=== PATIENT | male | born 1980 | race Caucasian/White ===

== ENCOUNTER 2018-01-11 11:42 | Emergency (ER) | payer MEDICAID, OTHER ==
[2018-01-11 11:53] VITALS: BP 132/79
--- NOTE | 2018-01-11 12:14 | ER Document Report ---
HPI - HPI Patient complains to provider of: infected insect bite Onset: Other - 3 days Pain Level: 4 Context: 37-year-old male complaining of abscess to his right medial lower leg just above the ankle. He thinks something bit him. It is been festering for 3 days. It is much worse today. He takes Suboxone 8- 3 times a day but the last time he got it filled was December 16 and he has not had any since November. He has hx of opiod abuse and is asking for dose of pain medication for the procedure only. No fever or chills. - CONSTITUTIONAL Constitutional: DENIES: Fever, Chills - EENT EENT: DENIES: Sore Throat, Ear Pain, Eye problems - NEURO Neurology: DENIES: Headache, Weakness, Vision blurred, Dizzinesss / Vertigo - CARDIOVASCULAR Cardiovascular: DENIES: Chest pain - RESPIRATORY Respiratory: DENIES: Trouble Breathing, Coughing - GASTROINTESTINAL Gastrointestinal: DENIES: Abdominal Pain, Black / Bloody Stools - URINARY Urinary: DENIES: Dysuria, Urgency, Frequency - REPRODUCTIVE Reproductive: DENIES: : - MUSCULOSKELETAL Musculoskeletal: DENIES: Extremity pain Past Medical History - Social History Smoking Status: Current Every Day Smoker Chew tobacco use (# tins/day): No Frequency of alcohol use: None Drug Abuse: None Family History: Reviewed & Not Pertinent, Hypertension Patient has suicidal ideation: No Patient has homicidal ideation: No - Past Medical History Cardiac Medical History: Reports: Hx Hypertension Pulmonary Medical History: Denies: Hx Tuberculosis Neurological Medical History: Reports: Hx Migraine Renal/ Medical History: Denies: Hx Peritoneal Dialysis Psychiatric Medical History: Reports: Hx Anxiety, Hx Bipolar Disorder, Hx Depression Past Surgical History: Reports: Hx Orthopedic Surgery - Back x 2, Sciatica, Right Leg. Denies: Hx Pacemaker - Immunizations Hx Diphtheria, Pertussis, Tetanus Vaccination: Yes Vertical Provider Document - CONSTITUTIONAL Agree With Documented VS: Yes Exam Limitations: No Limitations - INFECTION CONTROL TRAVEL OUTSIDE OF THE [place] IN LAST 30 DAYS: No - MUSCULOSKELETAL/EXTREMETIES Musculoskeletal/Extremeties: MAEW, FROM, Tender - red swollen fluctuant abscess medial left lower leg just above the ankle, Edema Notes: 3 cm lyphngitis, non tender above the ankle - NEURO Level of Consciousness: Awake - DERM Integumentary: Abscess Course - Vital Signs Vital signs: Temp Pulse Resp BP Pulse Ox 98.2 F 92 16 132/79 H 100 01/11/18 11:52 01/11/18 11:52 01/11/18 11:52 01/11/18 11:52 01/11/18 11:52 Procedures - Incision and Drainage Left Lower Leg Time completed: 14:20 Type: Simple Anesthetic type: 1% Lidocaine mL's of anesthetic: 3 Blade size: 11 I&D procedure: Sterile dressing applied, Other - surgiscrub Incision Method: Incision made by scalpel - x cut, pus drained, irrigated with 60 ml sterile saline Amount/type of drainage: large pus Discharge - Discharge Clinical Impression: I&D of right lower leg abscess, Lymphangitis Condition: Good Disposition: HOME, SELF-CARE Instructions: Abscess ([facility]), Clindamycin ([facility]), Elevation & Warmth ([facility]), Post Incision and Drainage Additional Instructions: Elevate her left leg above your heart with warm compresses all day today and tomorrow Take the clindamycin 300 mg 3 times a day that she would have already gotten from the pharmacy Tylenol up to 4000 mg a day for pain Return to the emergency room if the red area extends above the line. Prescriptions: Clindamycin HCl [Cleocin 150 mg Capsule] 300 mg PO TID #60 capsule
[2018-01-11] MEDS ORDERED: CLINDAMYCIN PHOSPHATE INJ 300 MG/2 ML SDV IV ONE (12:22)
[2018-01-11] MEDS ORDERED: ACETAMINOPHEN 325 MG TABLET PO ONE (12:23)
[2018-01-11] MEDS ORDERED: LIDOCAINE 4%/TETRACAINE 0.5%/EPI 0.18% 5 ML TOPICAL SOLN TOP ONE (12:23)
[2018-01-11] MEDS ORDERED: MORPHINE SULFATE 10 MG/ML INJ IV ONE (13:05)
== END 2018-01-11 14:56 | disposition home or self-care (01) ==
LOC: ER 11:42
PROC: 0H9LXZZ Drainage of Left Lower Leg Skin, External Approach (ICD-10-PCS; principal; 2018-01-11)
DX: L02.415 Cutaneous abscess of right lower limb (principal); I89.1 Lymphangitis
CPT/HCPCS: 87070; 87205; 87077; 87186; 10060; J3490 ×3; J2270

== ENCOUNTER 2018-04-04 22:24 | Inpatient (IN) | payer MEDICAID ==
[2018-04-05] MEDS ORDERED: AMPICILLIN SOD/SULBACTAM 3 GM VIAL IV ONE (00:03)
[2018-04-05 00:34] LABS: HEMATOCRIT 44.3 % (37.9-51.0); HEMOGLOBIN 15.1 g/dL (13.5-17.0); MEAN CORPUSCULAR HEMOGLOBIN 27.7 pg (27.0-33.4); MEAN CORPUSCULAR HGB CONC 34.2 g/dL (32.0-36.0); MEAN CORPUSCULAR VOLUME 81 fl (80-97); PLATELET COUNT 295 10^3/uL (150-450); RED BLOOD COUNT 5.48 10^6/uL (4.35-5.55); RED CELL DISTRIBUTION WIDTH 13.9 % (11.5-14.0)
[2018-04-05 00:42] LABS: ALANINE AMINOTRANSFERASE 51 U/L (21-72); ALBUMIN 4.3 g/dL (3.5-5.0); ALKALINE PHOSPHATASE 134 U/L (38-126); ANION GAP 16 (5-19); ASPARTATE AMINO TRANSFERASE 35 U/L (17-59); BILIRUBIN,DIRECT 0.3 mg/dL (0.0-0.4); BLOOD UREA NITROGEN 15 mg/dL (7-20); CALCIUM 9.8 mg/dL (8.4-10.2); CARBON DIOXIDE 27 mmol/L (22-30); CHLORIDE 98 mmol/L (98-107); GLUCOSE 148 mg/dL (75-110); POTASSIUM 3.4 mmol/L (3.6-5.0); TOTAL PROTEIN 8.2 g/dL (6.3-8.2)
[2018-04-05 00:58] LABS: ABSOLUTE LYMPHOCYTES# (MANUAL) 0.9 10^3/uL (0.5-4.7); ABSOLUTE MONOCYTES # (MANUAL) 1.8 10^3/uL (0.1-1.4); BASOPHILS % (MANUAL) 0 % (0-2); EOSINOPHILS % (MANUAL) 0 % (0-6); LYMPHOCYTES % (MANUAL) 3 % (13-45); MONOCYTES % (MANUAL) 6 % (3-13); SEGMENTED NEUTROPHILS % (MAN) 91 % (42-78); TOTAL CELLS COUNTED 100
[2018-04-05 01:02] LABS: ANISOCYTOSIS SLIGHT; PLATELET COMMENT ADEQUATE; POLYCHROMASIA SLIGHT; SCHISTOCYTES SLIGHT; TOXIC GRANULATION 1+; TOXIC VACUOLATION PRESENT
[2018-04-05 01:03] LABS: PLATELET CLUMPS PRESENT; PLATELET LARGE PRESENT; WHITE BLOOD COUNT 30.8 10^3/uL (4.0-10.5)
--- NOTE | 2018-04-05 01:20 | ER Document Report ---
ED ENT - General Chief Complaint: Facial Swelling Stated Complaint: NOSE PROBLEM Time Seen by Provider: 04/04/18 23:50 Mode of Arrival: Ambulatory Information source: Patient Notes: Patient is a 37-year-old male with no significant past medical history other than IV drug use who presents with swelling and pain of the nose and the right side of his face. Patient reports symptoms began 2 days ago when he noticed "pimple" inside his nose, he attempted to squeeze it with some relief, however yesterday he woke up and he has swelling of the nose that progressed today to the face. He denies fevers or chills, does report abdominal pain and nausea, no injury to his knowledge. He denies pain moving his eyes. TRAVEL OUTSIDE OF THE [place] IN LAST 30 DAYS: No - HPI Patient complains to provider of: Nose problem, Other - Facial swelling Onset: Yesterday Onset/Duration: Sudden Quality of pain: Sharp, Other - Throbbing Severity: Severe Pain Level: 4 Context: denies: Injury Location of pain: Face, Nose Associated symptoms: Face swelling Similar symptoms previously: No Recently seen / treated by doctor: No - Related Data Allergies/Adverse Reactions: haloperidol [From Haldol] Allergy (Severe, Verified 01/11/18 11:47) Anaphylaxis haloperidol lactate [From Haldol] Allergy (Severe, Verified 01/11/18 11:47) Anaphylaxis ketorolac tromethamine [From Toradol] Allergy (Severe, Verified 01/11/18 11:47) Past Medical History - General Information source: Patient - Social History Smoking Status: Current Every Day Smoker Chew tobacco use (# tins/day): No Frequency of alcohol use: None Drug Abuse: Other - Positive history, currently denies Lives with: Friend Family History: Reviewed & Not Pertinent, Hypertension Patient has suicidal ideation: No Patient has homicidal ideation: No - Past Medical History Cardiac Medical History: Reports: Hx Hypertension Pulmonary Medical History: Reports: None Denies: Hx Tuberculosis EENT Medical History: Reports: None Neurological Medical History: Reports: Hx Migraine Endocrine Medical History: Reports: None Renal/ Medical History: Reports: None. Denies: Hx Peritoneal Dialysis Malignancy Medical History: Reports None GI Medical History: Reports: None Musculoskeletal Medical History: Reports None Skin Medical History: Reports None Psychiatric Medical History: Reports: Hx Anxiety, Hx Bipolar Disorder, Hx Depression Traumatic Medical History: Reports: None Infectious Medical History: Reports: None Past Surgical History: Reports: Hx Orthopedic Surgery - Back x 2, Sciatica, Right Leg. Denies: Hx Pacemaker - Immunizations Hx Diphtheria, Pertussis, Tetanus Vaccination: Yes Review of Systems - Review of Systems -: Yes ROS unobtainable due to patient's medical condition Constitutional: No symptoms reported EENT: Eye pain, Eye discharge, Nose pain, Nose discharge. denies: Blurred vision, Sinus pressure, Sinus discharge, Throat pain Cardiovascular: No symptoms reported Respiratory: No symptoms reported Gastrointestinal: No symptoms reported Genitourinary: No symptoms reported Male Genitourinary: No symptoms reported Musculoskeletal: No symptoms reported Skin: No symptoms reported Hematologic/Lymphatic: No symptoms reported Neurological/Psychological: No symptoms reported -: Yes All other systems reviewed and negative Physical Exam - Vital signs Vitals: Temp Pulse Resp BP Pulse Ox 97.7 F 95 20 149/87 H 100 04/04/18 23:03 04/04/18 23:03 04/04/18 23:03 04/04/18 23:03 04/04/18 23:03 Interpretation: Normal - General General appearance: Alert, Other - Sick appearing In distress: Mild - HEENT Head: Normocephalic, Atraumatic Eyes: Other - Right periorbital erythema involving a small amount of the superior eyelid but the entire inferior eyelid across to the zygomatic arch and over to the nose, mild chemosis Conjunctiva: Normal Extraocular movements intact: Yes Eyelashes: Normal Pupils: PERRL Nasal: Other - Significant edema and erythema of the entire nose somewhat asymmetric and worse on the right, no active drainage Mouth/Lips: Normal Mucous membranes: Normal Pharynx: Normal Neck: Normal - Respiratory Respiratory status: No respiratory distress Chest status: Nontender Breath sounds: Normal Chest palpation: Normal - Cardiovascular Rhythm: Regular Heart sounds: Normal auscultation Murmur: No - Abdominal Inspection: Normal Distension: No distension Bowel sounds: Normal Tenderness: Nontender Organomegaly: No organomegaly - Back Back: Normal, Nontender - Extremities General upper extremity: Normal inspection, Nontender, Normal color, Normal ROM , Normal temperature General lower extremity: Normal inspection, Nontender, Normal color, Normal ROM , Normal temperature, Normal weight bearing. No: Jamie's sign - Neurological Neuro grossly intact: Yes Cognition: Normal Orientation: AAOx4 [place] Coma Scale Eye Opening: Spontaneous [place] Coma Scale Verbal: Oriented [place] Coma Scale Motor: Obeys Commands [place] Coma Scale Total: 15 Speech: Normal Motor strength normal: LUE, RUE, LLE, RLE Sensory: Normal - Psychological Associated symptoms: Normal affect, Normal mood - Skin Skin Temperature: Warm Skin Moisture: Dry Skin Color: Normal Course - Re-evaluation Re-evalutation: 04/05/18 01:27 Concerning for facial cellulitis as well as preorbital versus orbital cellulitis , orbital cellulitis is doubtful given no pain with movement of his extraocular muscles. Will obtain labs, CT scans of the face and orbits, start IV Unasyn, and admit to the hospital. 04/05/18 02:45 Labs showed normal lactic acid, white cell count of 30, CT scan that shows preseptal cellulitis. Patient is admitted to the hospitalist. - Vital Signs Vital signs: Temp Pulse Resp BP Pulse Ox 97.7 F 95 20 149/87 H 100 04/04/18 23:03 04/04/18 23:03 04/04/18 23:03 04/04/18 23:03 04/04/18 23:03 - Laboratory Result Diagrams: 04/05/18 00:22 04/05/18 00:22 Laboratory results interpreted by me: 04/05/18 04/05/18 00:22 00:22 WBC 30.8 H* Seg Neuts % (Manual) 91 H Lymphocytes % (Manual) 3 L Abs Neuts (Manual) 28.0 H Abs Monocytes (Manual) 1.8 H Potassium 3.4 L Glucose 148 H Alkaline Phosphatase 134 H - Diagnostic Test Radiology reviewed: Reports reviewed - Consults Dr. Quiles Time consulted: 02:46 - will admit Consulted provider: will come to ER Discharge - Discharge Clinical Impression: Facial cellulitis, Preseptal cellulitis of right eye Condition: Fair Disposition: ADMITTED INPATIENT Admitting Provider: Hospitalist Unit Admitted: Medical Floor
--- NOTE | 2018-04-05 01:43 | RADIOLOGY REPORT (SQ) ---
CT MAXILLOFACIAL WITH IV CONTRAST HISTORY: Swelling and redness noted under right eye and to entire nose. Query cellulitis. COMPARISON: None. TECHNIQUE: CT scan of the facial bones with IV contrast. This exam was performed according to our departmental dose-optimization program, which includes automated exposure control, adjustment of the mA and/or kV according to patient size and/or use of iterative reconstruction technique. FINDINGS: Mild right infraorbital and nasal soft tissue swelling. No rim-enhancing fluid collection is seen. No retrobulbar mass or hematoma is identified. Mild mucosal thickening of the right frontoethmoidal recess and the right anterior ethmoid air cells. No air-fluid levels are seen in the paranasal sinuses. The mastoid air cells are clear. No acute facial bone fracture is seen. The temporomandibular joints are intact. IMPRESSION: 1. Mild right infraorbital and nasal soft tissue swelling, which may represent preseptal cellulitis. 2. No evidence of abscess or postseptal cellulitis. 3. Mild right-sided sinus mucosal inflammatory disease.
[2018-04-05] MEDS ORDERED: TRAMADOL HCL 50 MG TABLET PO ONE (02:45)
[2018-04-05] MEDS ORDERED: ACETAMINOPHEN 325 MG TABLET PO PRN (03:26)
[2018-04-05] MEDS ORDERED: PROMETHAZINE HCL INJ 25 MG/1 ML VIAL IV PRN (03:26)
[2018-04-05] MEDS ORDERED: MAG HYDROX/AL HYDROX/SIMETH SUSP 30 ML UDCUP PO PRN (03:26)
[2018-04-05] MEDS ORDERED: AMPICILLIN SOD/SULBACTAM 3 GM VIAL IV PRN (03:51)
[2018-04-05] MEDS ORDERED: CLINDAMYCIN 900 MG/D5W RTU 900 MG/50 ML RTUPB IV ONE (04:00)
[2018-04-05] MEDS: HYDROMORPHONE HCL INJ/PF 2 MG/ML AMPULE SUBCUT PRN ×2 (04:45→10:37)
[2018-04-05] MEDS: IPRATROPIUM/ALBUTEROL 0.5-2.5 MG/3 ML AMPUL NEB PRN ×2 (04:46→16:21)
[2018-04-05] MEDS ORDERED: CLINDAMYCIN 900 MG/D5W RTU 900 MG/50 ML RTUPB IV SCH (06:00)
--- NOTE | 2018-04-05 06:53 | PDOC H&P ---
History of Present Illness Admission Date/PCP: 04/05/18 02:51 Patient complains of: Right facial pain History of Present Illness: CODY CHAVIRA is a 37 year old male with a past medical history of IV drug abuse and tobacco who presents with 2 days of right-sided facial pain following the discovery of a pustule inside of his nare on the right side. Attempts to express fluctuance on several occasions has resulted in worsening right face pain and swelling. In the emergency room he is found to have leukocytosis of 30 ,000 and a right sided maxillary sinusitis and preseptal cellulitis without abscess. He denies headache, blurred vision, nausea or vomiting or stiff neck. He receives empiric antibiotics and referred to the hospitalist for admission. Patient complains of an abrupt onset of chest pain. No shortness of breath palpitations nausea vomiting Emergency room nursing staff is concerned for excessive sedation and odd affect following visitation by several family members. Past Medical History Cardiac Medical History: Reports: Hypertension Pulmonary Medical History: Reports: None Denies: Tuberculosis EENT Medical History: Reports: None Neurological Medical History: Reports: Migraine Endocrine Medical History: Reports: None Renal/ Medical History: Reports: None Malignancy Medical History: Reports: None GI Medical History: Reports: None Musculoskeltal Medical History: Reports: None Skin Medical History: Reports: None Psychiatric Medical History: Reports: Bipolar Disorder, Depression, Substance Abuse, Tobacco Dependency Traumatic Medical History: Reports: None Infectious Medical History: Reports: None Past Surgical History Past Surgical History: Reports: Orthopedic Surgery - Back x 2, Sciatica, Right Leg Denies: Pacemaker Social History Information Source: Patient Lives with: Friend Smoking Status: Current Every Day Smoker Frequency of Alcohol Use: Social Hx Recreational Drug Use: No Drugs: Other - Denies to current provider Hx Prescription Drug Abuse: No - Advance Directive Resuscitation Status: Full Code Family History Family History: Hypertension Parental Family History Reviewed: Yes Children Family History Reviewed: Yes Sibling(s) Family History Reviewed.: Yes Medication/Allergy Home Medications: Clindamycin HCl [Cleocin 150 mg Capsule] 300 mg PO TID #60 capsule 01/11/18 Allergies/Adverse Reactions: haloperidol [From Haldol] Allergy (Severe, Verified 01/11/18 11:47) Anaphylaxis haloperidol lactate [From Haldol] Allergy (Severe, Verified 01/11/18 11:47) Anaphylaxis ketorolac tromethamine [From Toradol] Allergy (Severe, Verified 01/11/18 11:47) Review of Systems Constitutional: ABSENT: chills, fever(s), headache(s), weight gain, weight loss Eyes: ABSENT: visual disturbances Ears: ABSENT: hearing changes Cardiovascular: ABSENT: chest pain, dyspnea on exertion, edema, orthropnea, palpitations Respiratory: ABSENT: cough, hemoptysis Gastrointestinal: ABSENT: abdominal pain, constipation, diarrhea, hematemesis, hematochezia, nausea, vomiting Genitourinary: ABSENT: dysuria, hematuria Musculoskeletal: ABSENT: joint swelling Integumentary: ABSENT: rash, wounds Neurological: ABSENT: abnormal gait, abnormal speech, confusion, dizziness, focal weakness, syncope Psychiatric: ABSENT: anxiety, depression, homidical ideation, suicidal ideation Endocrine: ABSENT: cold intolerance, heat intolerance, polydipsia, polyuria Hematologic/Lymphatic: ABSENT: easy bleeding, easy bruising Physical Exam Vital Signs: Temp Pulse Resp BP Pulse Ox 98.6 F 100 26 H 134/81 H 100 04/05/18 03:00 04/05/18 03:00 04/05/18 03:00 04/05/18 03:00 04/05/18 03:00 General appearance: PRESENT: cooperative, disheveled, mild distress Head exam: PRESENT: atraumatic, normocephalic Eye exam: PRESENT: conjunctival injection - Right-sided, PERRLA Ear exam: PRESENT: normal external ear exam Mouth exam: PRESENT: moist, tongue midline Neck exam: ABSENT: carotid bruit, JVD, lymphadenopathy, thyromegaly Adult Head Front/Back Image: 1 - Edema and erythema Respiratory exam: PRESENT: clear to auscultation hilaria. ABSENT: rales, rhonchi, wheezes Cardiovascular exam: PRESENT: RRR. ABSENT: diastolic murmur, rubs, systolic murmur Pulses: PRESENT: normal dorsalis pedis pul Vascular exam: PRESENT: normal capillary refill GI/Abdominal exam: PRESENT: normal bowel sounds, soft. ABSENT: distended, guarding, mass, organolmegaly, rebound, tenderness Rectal exam: PRESENT: deferred Extremities exam: PRESENT: full ROM. ABSENT: calf tenderness, clubbing, pedal edema Neurological exam: PRESENT: alert, altered, awake, oriented to person, oriented to place, oriented to time, oriented to situation, CN II-XII grossly intact. ABSENT: motor sensory deficit Psychiatric exam: PRESENT: anxious Skin exam: PRESENT: dry, intact, warm, other - Several pustules on the right side of nose. ABSENT: cyanosis, rash Results Impressions: Facial Bones CT 04/04/18 23:59 IMPRESSION: 1. Mild right infraorbital and nasal soft tissue swelling, which may represent preseptal cellulitis. 2. No evidence of abscess or postseptal cellulitis. 3. Mild right-sided sinus mucosal inflammatory disease. Assessment & Plan - Diagnosis (1) Facial cellulitis Is this a current diagnosis for this admission?: Yes Plan: Clindamycin, Unasyn, follow-up CBC, culture and ENT consult (2) Preseptal cellulitis of right eye Is this a current diagnosis for this admission?: Yes Plan: Follow-up ENT consult, CTV head - Time Time Spent: 50 to 70 Minutes - Inpatient Certification Medical Necessity: Need Close Monitoring Due to Risk of Patient Decompensation
[2018-04-05 06:55] LABS: HEMATOCRIT 39.6 % (37.9-51.0); HEMOGLOBIN 13.6 g/dL (13.5-17.0); MEAN CORPUSCULAR HEMOGLOBIN 27.9 pg (27.0-33.4); MEAN CORPUSCULAR HGB CONC 34.3 g/dL (32.0-36.0); MEAN CORPUSCULAR VOLUME 81 fl (80-97); PLATELET COUNT 313 10^3/uL (150-450); RED BLOOD COUNT 4.87 10^6/uL (4.35-5.55); RED CELL DISTRIBUTION WIDTH 13.6 % (11.5-14.0)
[2018-04-05 06:56] LABS: ANION GAP 15 (5-19); BLOOD UREA NITROGEN 15 mg/dL (7-20); CALCIUM 9.4 mg/dL (8.4-10.2); CARBON DIOXIDE 31 mmol/L (22-30); CHLORIDE 92 mmol/L (98-107); GLUCOSE 144 mg/dL (75-110); POTASSIUM 3.8 mmol/L (3.6-5.0); SODIUM 137.9 mmol/L (137-145)
[2018-04-05 07:08] LABS: CREATINE KINASE MB 2.03 ng/mL (<4.55)
[2018-04-05 07:09] LABS: TROPONIN I < 0.012 ng/mL
[2018-04-05] MEDS: AMPICILLIN SODIUM/SULBACTAM NA 3 GM in NORMAL SALINE 100 ML IV SCH ×3 (07:13→18:45)
[2018-04-05] MEDS: HEPARIN SOD (PORCINE) 5,000 UNIT/ML 1 ML SYRINGE SUBCUT SCH ×3 (07:13→23:30)
[2018-04-05] MEDS: CHLORPHENIRAMINE MALEATE 4 MG TABLET PO SCH ×3 (07:14→22:30)
[2018-04-05 08:02] LABS: ABSOLUTE LYMPHOCYTES# (MANUAL) 1.9 10^3/uL (0.5-4.7); ABSOLUTE MONOCYTES # (MANUAL) 1.5 10^3/uL (0.1-1.4); ABSOLUTE NEUTROPHILS# (MANUAL) 34.2 10^3/uL (1.7-8.2); BAND NEUTROPHILS % (MANUAL) 2 % (3-5); BASOPHILS % (MANUAL) 0 % (0-2); EOSINOPHILS % (MANUAL) 0 % (0-6); LYMPHOCYTES % (MANUAL) 5 % (13-45); MONOCYTES % (MANUAL) 4 % (3-13); PLATELET CLUMPS PRESENT; POLYCHROMASIA SLIGHT; SEGMENTED NEUTROPHILS % (MAN) 89 % (42-78); TOTAL CELLS COUNTED 100; TOXIC GRANULATION 1+; TOXIC VACUOLATION PRESENT
[2018-04-05 08:05] LABS: WHITE BLOOD COUNT 37.6 10^3/uL (4.0-10.5)
[2018-04-05 09:07] LABS: APPEARANCE,URINE CLEAR; BILIRUBIN,URINE NEGATIVE (NEGATIVE); COLOR,URINE YELLOW; GLUCOSE, URINE 50 mg/dL (NEGATIVE); KETONES,URINE TRACE mg/dL (NEGATIVE); LEUKOCYTE ESTERASE,URINE NEGATIVE (NEGATIVE); NITRITE,URINE NEGATIVE (NEGATIVE); PROTEIN,URINE 100 mg/dL (NEGATIVE); URINE SPECIFIC GRAVITY 1.034; UROBILINOGEN,URINE NEGATIVE mg/dL (<2.0)
[2018-04-05 09:36] LABS: URINE BARBITURATES SCREEN NEGATIVE; URINE BENZODIAZEPINES SCREEN NEGATIVE; URINE COCAINE SCREEN NEGATIVE; URINE MARIJUANA (THC) SCREEN UNCONFIRMED POSITIVE; URINE METHADONE SCREEN NEGATIVE; URINE PHENCYCLIDINE SCREEN NEGATIVE
[2018-04-05] MEDS: DOCUSATE SODIUM 100 MG CAPSULE PO SCH ×2 (10:36→18:46)
[2018-04-05] MEDS: CLINDAMYCIN 900 MG/D5W RTU 900 MG/50 ML RTUPB IV SCH ×2 (10:37→20:19)
[2018-04-05] MEDS: FLUTICASONE NASAL SPRAY 50 MCG/SPRY 120 SPRAY/16 GM NASL SCH ×2 (10:37→23:30)
--- NOTE | 2018-04-05 12:02 | EKG REPORT ---
SEVERITY:- OTHERWISE NORMAL ECG - SINUS TACHYCARDIA MINIMAL ST DEPRESSION : Confirmed by: Saleem Max 05-Apr-2018 12:01:44
[2018-04-05 12:21] LABS: CREATINE KINASE MB 1.05 ng/mL (<4.55)
[2018-04-05 12:23] LABS: TROPONIN I < 0.012 ng/mL
[2018-04-05] MEDS ORDERED: KETOROLAC TROMETHAMINE INJ/PF 30 MG/1 ML SDV IV PRN (13:19)
[2018-04-05] MEDS: MORPHINE SULFATE 10 MG/ML INJ IV PRN (14:01)
[2018-04-05] MEDS: NORMAL SALINE 1000 ML 1,000 ML IV PRN (15:49)
[2018-04-05] MEDS: ARIPIPRAZOLE 5 MG TABLET PO SCH (15:50)
--- NOTE | 2018-04-05 16:58 | PDOC PROGRESS REPORT ---
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 The patient was seen on morning rounds while still in the emergency department. He was found sitting upright in bed, with even and unlabored respirations, on room air. Initially, he was found to be sleeping and was very difficult to arouse. He did not respond to name, gentle shake, or sternal rub. The patient had a friend present in the room who also was somnolent and did not respond to gentle shake of the shoulder. The patient's nurse was located and his last pain medication dose was confirmed to have been approximately 2-1/2 hours previously. The nurse and I reentered the room and again attempted to awaken the patient. He called his name loudly and told him that if he did not open his eyes and respond to me I would have to administer Narcan; at that time, both the patient and his friend roused. The patient is A&O x4. He complained of right facial pain, chest pain, and abdominal pain. He was unable to describe his chest and abdominal discomfort; express aggravating or alleviating factors, or localize his pain. He then told me that he wanted something to drink and promptly fell back to sleep. The patient's nurse reported that the patient has been intermittently waking and complaining of vague and migratory pain but appears to be resting comfortably otherwise. Reason For Visit: FACIAL CELLULITIS,POLYSUBSTANCE ABUSE Physical Exam Vital Signs: Temp Pulse Resp BP Pulse Ox 98.7 F 96 25 H 128/77 H 96 04/05/18 06:54 04/05/18 06:54 04/05/18 15:01 04/05/18 15:00 04/05/18 15:01 Intake & Output 04/04/18 04/05/18 04/06/18 06:59 06:59 06:59 Intake Total 200 Balance 200 General appearance: PRESENT: no acute distress, well-developed, well-nourished Head exam: PRESENT: normocephalic Eye exam: PRESENT: conjunctiva pink, EOMI, PERRLA. ABSENT: periorbital swelling , scleral icterus Ear exam: PRESENT: normal external ear exam Mouth exam: PRESENT: moist, neck supple, tongue midline Throat exam: ABSENT: post pharyngeal erythema, tonsillar erythema, tonsillar exudate, tonsillogmegaly Neck exam: PRESENT: full ROM. ABSENT: carotid bruit, JVD, lymphadenopathy, meningismus, tenderness, thyromegaly, tracheal deviation Respiratory exam: PRESENT: clear to auscultation hilaria, symmetrical, tachypnea, unlabored. ABSENT: rales, rhonchi, wheezes Cardiovascular exam: PRESENT: RRR, +S1, +S2. ABSENT: diastolic murmur, rubs, systolic murmur Pulses: PRESENT: normal dorsalis pedis pul Vascular exam: PRESENT: normal capillary refill GI/Abdominal exam: PRESENT: normal bowel sounds, soft. ABSENT: distended, guarding, mass, organolmegaly, rebound, tenderness Rectal exam: PRESENT: deferred Extremities exam: PRESENT: full ROM. ABSENT: calf tenderness, clubbing, pedal edema Neurological exam: PRESENT: oriented to person, oriented to place, oriented to time, oriented to situation, CN II-XII grossly intact, other - Arousable. ABSENT: motor sensory deficit Psychiatric exam: PRESENT: appropriate affect, normal mood. ABSENT: homicidal ideation, suicidal ideation Skin exam: PRESENT: dry, erythema, warm, other - Several pustules to the right side of his nose; edema and erythema to his nose and right maxillary surface. No periorbital edema or erythema.. ABSENT: cyanosis, rash Results Laboratory Results: 04/05/18 06:30 04/05/18 06:30 04/05/18 04/05/18 04/05/18 06:30 06:30 08:40 WBC 37.6 H* RBC 4.87 Hgb 13.6 Hct 39.6 MCV 81 MCH 27.9 MCHC 34.3 RDW 13.6 Plt Count 313 Seg Neutrophils % Not Reportable Lymphocytes % Not Reportable Monocytes % Not Reportable Eosinophils % Not Reportable Basophils % Not Reportable Absolute Neutrophils Not Reportable Absolute Lymphocytes Not Reportable Absolute Monocytes Not Reportable Absolute Eosinophils Not Reportable Absolute Basophils Not Reportable Sodium 137.9 Potassium 3.8 Chloride 92 L Carbon Dioxide 31 H Anion Gap 15 BUN 15 Creatinine 0.97 Est GFR ( Amer) > 60 Est GFR (Non-Af Amer) > 60 Glucose 144 H Calcium 9.4 Urine Color YELLOW Urine Appearance CLEAR Urine pH 5.0 Ur Specific [place] 1.034 Urine Protein 100 H Urine Glucose (UA) 50 H Urine Ketones TRACE H Urine Blood NEGATIVE Urine Nitrite NEGATIVE Ur Leukocyte Esterase NEGATIVE Urine WBC (Auto) 10 Urine RBC (Auto) 2 04/05/18 04/05/18 04/05/18 06:30 06:30 11:22 Creatine Kinase 95 75 CK-MB (CK-2) 2.03 Troponin I < 0.012 04/05/18 11:22 Creatine Kinase CK-MB (CK-2) 1.05 Troponin I < 0.012 Impressions: Facial Bones CT 04/04/18 23:59 IMPRESSION: 1. Mild right infraorbital and nasal soft tissue swelling, which may represent preseptal cellulitis. 2. No evidence of abscess or postseptal cellulitis. 3. Mild right-sided sinus mucosal inflammatory disease. Assessment & Plan - Diagnosis (1) Facial cellulitis Is this a current diagnosis for this admission?: Yes Plan: The patient was admitted with a complaint of 2 days of progressively worsening erythema and edema that began in his nose and has spread to his face. He denies associated fevers or chills. He does complain of abdominal discomfort and nausea. Facial bone CT demonstrated mild right infraorbital and nasal soft tissue swelling, no evidence of abscess or post septal cellulitis, and mild right- sided sinus mucosal inflammatory disease. WBCs are elevated to 37.6. Lactic acid is normal. Blood cultures are pending. The patient is admitted to the medical floor. He has been empirically started on IV clindamycin and Unasyn. Your nose and throat has been consulted; appreciate Dr. Wells's evaluation recommendations. Scheduled ibuprofen, IV morphine for breakthrough pain. (2) Leukocytosis Is this a current diagnosis for this admission?: Yes Plan: Secondary to #1. Cultures and antibiotics as above. (3) Tobacco abuse Is this a current diagnosis for this admission?: Yes Plan: Smoking cessation is encouraged. Nicotine or placement therapies are provided. (4) Bipolar 1 disorder Is this a current diagnosis for this admission?: Yes Plan: The patient's home dose Abilify and Thorazine are continued. (5) Chest pain Is this a current diagnosis for this admission?: Yes Plan: Unclear etiology; patient is noted to be tachypneic. Troponins are negative x2. EKG demonstrates Sinus tachycardia without ST segment changes. Chest x-ray is pending. Echocardiogram is pending. As the patient is a IV drug user; echocardiogram was obtained to evaluate for endocarditis. We will continue to trend troponins. (6) History of intravenous drug abuse Is this a current diagnosis for this admission?: Yes Plan: Patient endorses a history of IV drug use, previously on Suboxone; denies current use of either. Nursing has reported some suspicious activity in the room and it was difficult to arouse the patient earlier today. UDS was positive for opiates (patient had already received subcu Dilaudid by collection time) and marijuana. We will need to monitor his pain medications closely; anticipate it will be difficult to obtain adequate pain control. Consider pain management and/or mental health consultations. - Time Time Spent with patient: 15-24 minutes Medications reviewed and adjusted accordingly: Yes Anticipated discharge: Home
--- NOTE | 2018-04-05 17:53 | RADIOLOGY REPORT (SQ) ---
EXAM DESCRIPTION: CHEST SINGLE VIEW COMPLETED DATE/TIME: 04/05/2018 5:22 pm REASON FOR STUDY: dyspnea, chest pain COMPARISON: 07/07/2012 EXAM PARAMETERS: NUMBER OF VIEWS: One view. TECHNIQUE: Single frontal radiographic view of the chest acquired. RADIATION DOSE: NA LIMITATIONS: None. FINDINGS: LUNGS AND PLEURA: Elevated right hemidiaphragm. No infiltrate, effusion, or mass. MEDIASTINUM AND HILAR STRUCTURES: No masses. Contour normal. HEART AND VASCULAR STRUCTURES: Heart normal in size. Normal vasculature. BONES: No acute findings. HARDWARE: None in the chest. OTHER: No other significant finding. IMPRESSION: NO ACUTE RADIOGRAPHIC FINDING IN THE CHEST. TECHNICAL DOCUMENTATION: JOB ID: [id number] [employer]- All Rights Reserved Reading location - IP/workstation name: [email or web address]
[2018-04-05] MEDS ORDERED: IBUPROFEN 600 MG TABLET ONE (18:43)
--- NOTE | 2018-04-05 19:43 | XCELERA REPORT ---
[address] [address] Transthoracic Echocardiogram Report Name: CODY CHAVIRA Age: 37 yrs Gender: Male : 1980 Patient Status: Inpatient [address] Study Date: 04/05/2018 10:15 AM Procedure: A two-dimensional transthoracic echocardiogram with color flow and Doppler was performed. The study was technically limited with all images being suboptimal in quality. Reason For Study: systolic murmur, iv drug abuse, chest pain History: systolic murmur, iv drug abuse, chest pain. Ordering Physician: JUAN ALBERTO MEI Performed By: Chata York Interpretation Summary No valvular vegetations seen.Recommend ARTIE if clinicsl suspicion is high. There is normal left ventricular wall thickness. LV EF is > than 60% Left ventricular systolic function is normal. Doppler measurements suggest normal left ventricular diastolic function The left ventricular wall motion is normal. There is no thrombus. The right ventricle is normal in size and function. The right atrium is normal. The left atrial size is normal. There is no aortic valve stenosis There is no LVOT obstruction. No aortic regurgitation is present. There is no tricuspid stenosis. No tricuspid regurgitation. Unable to calculate RVSP due lack of TR jet. The aortic root is normal size. There is no pericardial effusion. No valvular vegetations seen.Recommend ARTIE if clinicsl suspicion is high. MMode/2D Measurements & Calculations RVDd: 2.2 cm LVIDd: 4.8 cm FS: 32.2 % Ao root diam: 2.8 cm IVSd: 0.68 cm LVIDs: 3.3 cm EDV(Teich): 107.7 ml Ao root area: 6.1 cm2 LVPWd: 0.92 cm ESV(Teich): 42.8 ml EF(Teich): 60.3 % Doppler Measurements & Calculations MV E max elyssa: MV dec slope: Ao V2 max: LV V1 max P.8 cm/sec 131.3 cm/sec 4.7 mmHg MV A max elyssa: 424.0 cm/sec2 Ao max PG: LV V1 max: 64.0 cm/sec MV dec time: 0.17 sec6.9 mmHg 107.9 cm/sec MV E/A: 1.1 PA V2 max: 126.5 cm/sec PA max P.4 mmHg Left Ventricle The left ventricle is normal in size. There is normal left ventricular wall thickness. LV EF is > than 60%. Left ventricular systolic function is normal. Doppler measurements suggest normal left ventricular diastolic function. The left ventricular wall motion is normal. There is no thrombus. Right Ventricle The right ventricle is normal in size and function. Atria The right atrium is normal. The left atrial size is normal. Aortic Valve There is no aortic valvular vegetation. There is no aortic valve stenosis. There is no LVOT obstruction. No aortic regurgitation is present. Tricuspid Valve There is no tricuspid stenosis. Unable to calculate RVSP due lack of TR jet. No tricuspid regurgitation. Pulmonic Valve There is no pulmonic valvular stenosis. There is no pulmonic valvular regurgitation. Great Vessels The aortic root is normal size. Effusions There is no pericardial effusion. : JUAN ALBERTO MEI > Minda Connelly
[2018-04-05 20:11] LABS: CREATINE KINASE MB 0.48 ng/mL (<4.55)
[2018-04-05 20:20] LABS: TROPONIN I < 0.012 ng/mL
[2018-04-06] MEDS: AMPICILLIN SODIUM/SULBACTAM NA 3 GM in NORMAL SALINE 100 ML IV SCH (00:37)
[2018-04-06] MEDS: CLINDAMYCIN 900 MG/D5W RTU 900 MG/50 ML RTUPB IV SCH ×3 (02:57→17:33)
[2018-04-06] MEDS: NORMAL SALINE 1000 ML 1,000 ML IV PRN ×2 (03:01→10:41)
[2018-04-06] MEDS: MORPHINE SULFATE 10 MG/ML INJ IV PRN (08:24)
[2018-04-06] MEDS ORDERED: CHLORPROMAZINE HCL 50 MG TABLET PO SCH (10:00)
[2018-04-06] MEDS: DOCUSATE SODIUM 100 MG CAPSULE PO SCH ×2 (10:34→17:40)
[2018-04-06] MEDS: FLUTICASONE NASAL SPRAY 50 MCG/SPRY 120 SPRAY/16 GM NASL SCH ×2 (10:34→21:16)
[2018-04-06] MEDS: NICOTINE 21 MG/24 HR PATCH.TD24 TD SCH (10:35)
[2018-04-06] MEDS: CHLORPROMAZINE HCL 50 MG TABLET PO SCH (10:42)
[2018-04-06] MEDS: ARIPIPRAZOLE 5 MG TABLET PO SCH (10:42)
[2018-04-06 10:51] LABS: PATH REVIEW PATHOLOGIST REVIEWED
[2018-04-06] MEDS ORDERED: PROMETHAZINE HCL INJ 25 MG/1 ML VIAL IV PRN (11:00)
[2018-04-06] MEDS: HEPARIN SOD (PORCINE) 5,000 UNIT/ML 1 ML SYRINGE SUBCUT SCH ×3 (13:52→21:16)
[2018-04-06] MEDS: OXYCODONE HCL IR 5 MG TABLET PO PRN ×2 (14:10→21:17)
[2018-04-06] MEDS: IBUPROFEN 600 MG TABLET PO SCH ×2 (14:11→14:13)
[2018-04-06 15:09] LABS: ABSOLUTE EOSINOPHILS # (AUTO) 0.2 10^3/uL (0.0-0.6); ABSOLUTE LYMPHOCYTES (AUTO) 1.3 10^3/uL (0.5-4.7); ABSOLUTE MONOCYTES (AUTO) 0.8 10^3/uL (0.1-1.4); ABSOLUTE NEUT (AUTO) 14.3 10^3/uL (1.7-8.2); BASOPHILS % (AUTO) 0.2 % (0-2); EOSINOPHILS % (AUTO) 0.9 % (0-6); HEMATOCRIT 32.7 % (37.9-51.0); LYMPHOCYTES % (AUTO) 7.9 % (13-45); MEAN CORPUSCULAR HEMOGLOBIN 27.2 pg (27.0-33.4); MEAN CORPUSCULAR HGB CONC 33.9 g/dL (32.0-36.0); MEAN CORPUSCULAR VOLUME 80 fl (80-97); PLATELET COUNT 253 10^3/uL (150-450); RED BLOOD COUNT 4.07 10^6/uL (4.35-5.55); RED CELL DISTRIBUTION WIDTH 13.8 % (11.5-14.0); TOTAL CELLS COUNTED % (AUTO) 100 %
[2018-04-06 15:12] LABS: HEMOGLOBIN 11.1 g/dL (13.5-17.0); WHITE BLOOD COUNT 16.6 10^3/uL (4.0-10.5)
[2018-04-06 15:18] LABS: ANION GAP 12 (5-19); BLOOD UREA NITROGEN 9 mg/dL (7-20); CALCIUM 8.2 mg/dL (8.4-10.2); CARBON DIOXIDE 30 mmol/L (22-30); CHLORIDE 97 mmol/L (98-107); GLUCOSE 157 mg/dL (75-110); SODIUM 138.6 mmol/L (137-145)
[2018-04-06 15:24] LABS: POTASSIUM 2.9 mmol/L (3.6-5.0)
--- NOTE | 2018-04-06 17:08 | PDOC PROGRESS REPORT ---
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 The patient was seen on morning rounds. He was found resting in bed comfortably on room air. He was sleeping soundly but did wake after we set his name several times. The nurse reports that he has been somnolent and difficult to arouse, but upon waking requests pain medications. He has also been refusing antibiotics, IV fluids, and lab draws due to his pain. Discussed with the patient his positive blood culture results and worrisome laboratory findings ; patient is agreeable to continuing antibiotics and necessary labs at this time. He reports continued facial pain and chest wall discomfort with deep breathing and cough. He denies fever, chills, headache, difficulty swallowing, palpitations, dyspnea , orthopnea, abdominal pain, nausea vomiting and diarrhea. He has no other questions or concerns. Reason For Visit: FACIAL CELLULITIS,POLYSUBSTANCE ABUSE Physical Exam Vital Signs: Temp Pulse Resp BP Pulse Ox 98.6 F 100 18 112/62 100 04/06/18 16:00 04/06/18 16:00 04/06/18 16:00 04/06/18 16:00 04/06/18 16:00 Intake & Output 04/05/18 04/06/18 04/07/18 06:59 06:59 06:59 Intake Total 1786 2196 Balance 1786 2196 Weight 77.7 kg General appearance: PRESENT: no acute distress, well-developed, well-nourished Head exam: PRESENT: normocephalic Eye exam: PRESENT: conjunctiva pink, EOMI, periorbital swelling - Right; no erythema, PERRLA. ABSENT: scleral icterus Ear exam: PRESENT: normal external ear exam Mouth exam: PRESENT: moist, tongue midline Throat exam: ABSENT: post pharyngeal erythema, tonsillar erythema, tonsillar exudate, tonsillogmegaly Neck exam: PRESENT: full ROM. ABSENT: carotid bruit, JVD, lymphadenopathy, tenderness, thyromegaly Respiratory exam: PRESENT: decreased breath sounds - Poor inspiratory effort, symmetrical, tachypnea, unlabored. ABSENT: rales, rhonchi, wheezes Cardiovascular exam: PRESENT: RRR, +S1, +S2. ABSENT: diastolic murmur, rubs, systolic murmur Pulses: PRESENT: normal dorsalis pedis pul Vascular exam: PRESENT: normal capillary refill GI/Abdominal exam: PRESENT: normal bowel sounds, soft. ABSENT: distended, guarding, mass, organolmegaly, rebound, tenderness Rectal exam: PRESENT: deferred Extremities exam: PRESENT: full ROM. ABSENT: calf tenderness, clubbing, pedal edema Neurological exam: PRESENT: alert, awake, oriented to person, oriented to place , oriented to time, oriented to situation, CN II-XII grossly intact. ABSENT: motor sensory deficit Psychiatric exam: PRESENT: appropriate affect, normal mood. ABSENT: homicidal ideation, suicidal ideation Skin exam: PRESENT: dry, erythema - Several pustules to the right side of his nose; edema to nose, right maxillary surface, and right orbit. Erythema has improved; now to nose only., intact, warm. ABSENT: cyanosis, rash Results Laboratory Results: 04/06/18 14:50 04/06/18 14:50 04/06/18 04/06/18 14:50 14:50 WBC 16.6 H RBC 4.07 L Hgb 11.1 L D Hct 32.7 L MCV 80 MCH 27.2 MCHC 33.9 RDW 13.8 Plt Count 253 Seg Neutrophils % 86.0 H Lymphocytes % 7.9 L Monocytes % 5.0 Eosinophils % 0.9 Basophils % 0.2 Absolute Neutrophils 14.3 H Absolute Lymphocytes 1.3 Absolute Monocytes 0.8 Absolute Eosinophils 0.2 Absolute Basophils 0.0 Sodium 138.6 Potassium 2.9 L* Chloride 97 L Carbon Dioxide 30 Anion Gap 12 BUN 9 Creatinine 0.65 Est GFR ( Amer) > 60 Est GFR (Non-Af Amer) > 60 Glucose 157 H Calcium 8.2 L 04/05/18 04/05/18 04/05/18 06:30 06:30 11:22 Creatine Kinase 95 75 CK-MB (CK-2) 2.03 Troponin I < 0.012 04/05/18 04/05/18 04/05/18 11:22 19:25 19:25 Creatine Kinase 78 CK-MB (CK-2) 1.05 0.48 Troponin I < 0.012 < 0.012 Impressions: Facial Bones CT 04/04/18 23:59 IMPRESSION: 1. Mild right infraorbital and nasal soft tissue swelling, which may represent preseptal cellulitis. 2. No evidence of abscess or postseptal cellulitis. 3. Mild right-sided sinus mucosal inflammatory disease. Chest X-Ray 04/05/18 00:00 IMPRESSION: NO ACUTE RADIOGRAPHIC FINDING IN THE CHEST. Assessment & Plan - Diagnosis (1) Facial cellulitis Is this a current diagnosis for this admission?: Yes Plan: Improved appearance; edema of the nose, right maxillary surface, right orbit. Erythema has decreased in size and intensity. Facial bone CT demonstrated mild right infraorbital and nasal soft tissue swelling, no evidence of abscess or post septal cellulitis, and mild right- sided sinus mucosal inflammatory disease. Leukocytosis is improving; 30.8--> 37.6--> 16.6. Lactic acid is normal. Blood cultures growing gram-positive cocci in clusters both sets. The patient is admitted to the medical floor. He has been empirically started on IV clindamycin and Unasyn; will adjust as cultures result ENT was consulted; spoke with Dr. Wells at this morning. He has reviewed patient's images; no interventions recommended at this time. Will see as an outpatient after discharge. Oxycodone as needed; avoid IV opiates secondary to continued sedation and concern for self-medicating (patient remains somnolent, difficult to arouse). Consider Head CT if patient continues to remain sedated, develops facial asymmetry or focal deficits. (2) Leukocytosis Is this a current diagnosis for this admission?: Yes Plan: Improved; secondary to #1. Cultures and antibiotics as above. (3) Tobacco abuse Is this a current diagnosis for this admission?: Yes Plan: Smoking cessation is encouraged. Nicotine or placement therapies are provided. (4) Bipolar 1 disorder Is this a current diagnosis for this admission?: Yes Plan: The patient's home dose Abilify and Thorazine are continued. (5) Chest pain Is this a current diagnosis for this admission?: Yes Plan: Unclear etiology; patient is noted to be tachypneic. Troponins are negative x3. EKG demonstrates Sinus tachycardia without ST segment changes. Chest x-ray is normal. Echocardiogram is benign; LVEF >60%, no diastolic dysfunction, no evidence of thrombus or vegetation. (6) History of intravenous drug abuse Is this a current diagnosis for this admission?: Yes Plan: Patient endorses a history of IV drug use, previously on Suboxone; denies current use of either. Nursing has reported some suspicious activity in the room yesterday. Patient remains intermittently sedated out of proportion to medications provided here. UDS was positive for opiates (patient had already received subcu Dilaudid by collection time) and marijuana. We will need to monitor his pain medications closely; anticipate it will be difficult to obtain adequate pain control. Consider pain management and/or mental health consultations. (7) Bacteremia Is this a current diagnosis for this admission?: Yes Plan: Both sets of cultures are growing gram-positive cocci in clusters. The patient does have a history of MSSA. He was empirically placed on IV clindamycin and Unasyn; will adjust as cultures result. Repeat blood cultures were obtained today. - Time Time Spent with patient: 15-24 minutes Medications reviewed and adjusted accordingly: Yes Anticipated discharge: Home
[2018-04-06] MEDS: CHLORPHENIRAMINE MALEATE 4 MG TABLET PO SCH ×2 (17:40→21:15)
[2018-04-06] MEDS: POTASSI CL 20 MEQ/50 ML RIDER 20 MEQ/50 ML RTUPB IV SCH (23:47)
[2018-04-07] MEDS: POTASSI CL 20 MEQ/50 ML RIDER 20 MEQ/50 ML RTUPB IV SCH ×5 (00:49→04:35)
[2018-04-07] MEDS: AMPICILLIN SODIUM/SULBACTAM NA 3 GM in NORMAL SALINE 100 ML IV SCH ×6 (01:26→18:26)
[2018-04-07] MEDS: CHLORPHENIRAMINE MALEATE 4 MG TABLET PO SCH ×4 (01:29→21:59)
[2018-04-07] MEDS: IBUPROFEN 600 MG TABLET PO SCH (01:32)
[2018-04-07] MEDS: CLINDAMYCIN 900 MG/D5W RTU 900 MG/50 ML RTUPB IV SCH ×3 (02:40→17:14)
[2018-04-07] MEDS: OXYCODONE HCL IR 5 MG TABLET PO PRN ×3 (05:04→22:00)
[2018-04-07] MEDS: HEPARIN SOD (PORCINE) 5,000 UNIT/ML 1 ML SYRINGE SUBCUT SCH ×3 (05:05→21:53)
[2018-04-07 07:39] LABS: ABSOLUTE EOSINOPHILS # (AUTO) 0.2 10^3/uL (0.0-0.6); ABSOLUTE LYMPHOCYTES (AUTO) 1.7 10^3/uL (0.5-4.7); ABSOLUTE MONOCYTES (AUTO) 1.3 10^3/uL (0.1-1.4); ABSOLUTE NEUT (AUTO) 10.6 10^3/uL (1.7-8.2); BASOPHILS % (AUTO) 0.2 % (0-2); EOSINOPHILS % (AUTO) 1.7 % (0-6); HEMATOCRIT 28.9 % (37.9-51.0); LYMPHOCYTES % (AUTO) 12.3 % (13-45); MEAN CORPUSCULAR HEMOGLOBIN 27.8 pg (27.0-33.4); MEAN CORPUSCULAR HGB CONC 34.5 g/dL (32.0-36.0); MEAN CORPUSCULAR VOLUME 81 fl (80-97); MONOCYTES % (AUTO) 9.1 % (3-13); PLATELET COUNT 249 10^3/uL (150-450); RED BLOOD COUNT 3.59 10^6/uL (4.35-5.55); RED CELL DISTRIBUTION WIDTH 13.9 % (11.5-14.0); SEGMENTED NEUTROPHILS % (AUTO) 76.7 % (42-78); TOTAL CELLS COUNTED % (AUTO) 100 %; WHITE BLOOD COUNT 13.8 10^3/uL (4.0-10.5)
[2018-04-07 07:47] LABS: ANION GAP 8 (5-19); BLOOD UREA NITROGEN 9 mg/dL (7-20); CALCIUM 7.8 mg/dL (8.4-10.2); CARBON DIOXIDE 29 mmol/L (22-30); CHLORIDE 101 mmol/L (98-107); GLUCOSE 108 mg/dL (75-110); POTASSIUM 3.5 mmol/L (3.6-5.0); SODIUM 138.2 mmol/L (137-145)
[2018-04-07] MEDS: FLUTICASONE NASAL SPRAY 50 MCG/SPRY 120 SPRAY/16 GM NASL SCH ×2 (10:55→22:00)
[2018-04-07] MEDS: NICOTINE 21 MG/24 HR PATCH.TD24 TD SCH (10:56)
[2018-04-07] MEDS: ARIPIPRAZOLE 5 MG TABLET PO SCH (11:00)
[2018-04-07] MEDS: CHLORPROMAZINE HCL 50 MG TABLET PO SCH (11:01)
[2018-04-07] MEDS: DOCUSATE SODIUM 100 MG CAPSULE PO SCH ×2 (11:01→18:26)
[2018-04-07 13:17] LABS: ARTERIAL BLOOD H2CO3 1.14 mmol/L (1.05-1.35); ARTERIAL BLOOD HCO3 28.5 mmol/L (20-24); ARTERIAL BLOOD O2 SATURATION 94.8 % (94-98); ARTERIAL BLOOD PCO2 37.9 mmHg (35-45); ARTERIAL BLOOD PH 7.49 (7.35-7.45); ARTERIAL BLOOD PO2 67.3 mmHg (80-100); ARTERIAL BLOOD TOTAL CO2 29.7 mmol/L (23-27)
[2018-04-07 13:18] LABS: ARTERIAL BLOOD FIO2 21%
--- NOTE | 2018-04-07 14:06 | RADIOLOGY REPORT (SQ) ---
EXAM DESCRIPTION: CTA CHEST COMPLETED DATE/TIME: 04/07/2018 1:31 pm REASON FOR STUDY: hypoxia, tachypnea, chest pain COMPARISON: 07/18/2013 TECHNIQUE: CT scan of the chest performed using helical scanning technique with dynamic intravenous contrast injection. Images reviewed with lung, soft tissue and bone windows. Reconstructed coronal and sagittal MPR images reviewed. Additional 3 dimensional post-processing performed to develop Maximal Intensity Projection images (DC P). All images stored on PACS. All CT scanners at this facility use dose modulation, iterative reconstruction, and/or weight based d osing when appropriate to reduce radiation dose to as low as reasonably achievable (ALARA). [facility]: Dose Right [facility]: CareDose [facility]: Dose Right [facility]: Teradose 4D [facility]: [employer] Data Integrity CONTRAST TYPE AND DOSE: contrast/concentration: Isovue 350.00 mg/ml; Total Contrast Delivered: 65.0 ml; Total Saline Delivered: 110.0 ml Contrast bolus optimized for the pulmonary arteries. Not diagnostic for the aorta. RENAL FUNCTION: BUN 9 creatinine 0.67 RADIATION DOSE: CT Rad equipment meets quality standard of care and radiation dose reduction techniq ues were employed. CTDIvol: 12.9 - 16.9 mGy. DLP: 506 mGy-cm. . LIMITATIONS: None. FINDINGS: LUNGS AND PLEURA: Bilateral subpleural/pleural nodules are present. The largest measures about 2 cm. There is a somewhat loculated right pleural effusion. There is compressive atelectasis in the right lower lobe. There is a minimal left pleural effusion with dependent atelectasis. AORTA AND GREAT VESSELS: No aneurysm. Contrast bolus not optimized for the aorta. HEART: No pericardial effusion. No significant coronary artery calcifications. PULMONARY ARTERIES: No emboli visualized in the main pulmonary arteries or the segmental branches. HILAR AND MEDIASTINAL STRUCTURES: No identified masses or abnormal nodes. HARDWARE: None in the chest. UPPER ABDOMEN: No significant findings. Limited exam. THYROID AND OTHER SOFT TISSUES: No masses. No adenopathy. BONES: No acute or significant finding. 3D MIPS: Confirm above findings. OTHER: No other significant finding. IMPRESSION: 1. There is no evidence of pulmonary emboli. 2. Bilateral pleural and subpleural nodules. Cannot entirely exclude neoplasm. Could represent inf ectious/ inflammatory etiology. 3. Loculated right pleural effusion with associated atelectasis. Minimal left pleural effusion with associated atelectasis. COMMENT: Quality ID # [id number]: Final reports with documentation of one or more dose reduction techniques (e.g., Automated exposure control, adjustment of the mA and/or kV according to patient size, use of iterative reconstruction technique) TECHNICAL DOCUMENTATION: JOB ID: [id number] [employer]- All Rights Reserved Reading location - IP/workstation name: [email or web address]
--- NOTE | 2018-04-07 14:29 | PDOC PROGRESS REPORT ---
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 The patient was seen on morning rounds. He was found resting in bed comfortably on room air. He was sleeping soundly but did wake easily. The patient's only complaint today is right chest wall discomfort with deep inspiration and cough. He denies fever, chills facial pain, palpitations, orthopnea, cough, abdominal pain, nausea vomiting and diarrhea. He denies fever, chills, headache, difficulty swallowing, palpitations, dyspnea , orthopnea, abdominal pain, nausea vomiting and diarrhea. He has no other questions or concerns. Reason For Visit: FACIAL CELLULITIS,POLYSUBSTANCE ABUSE Physical Exam Vital Signs: Temp Pulse Resp BP Pulse Ox 99.5 F 86 17 100/66 93 04/07/18 12:01 04/07/18 12:01 04/07/18 12:01 04/07/18 12:01 04/07/18 12:01 Intake & Output 04/06/18 04/07/18 04/08/18 06:59 06:59 06:59 Intake Total 1786 5121 150 Balance 1786 5121 150 Weight 77.7 kg 77.7 kg General appearance: PRESENT: no acute distress, well-developed, well-nourished, other - Fatigue Head exam: PRESENT: atraumatic, normocephalic Eye exam: PRESENT: conjunctiva pink, EOMI, PERRLA. ABSENT: scleral icterus Ear exam: PRESENT: normal external ear exam Mouth exam: PRESENT: moist, tongue midline Neck exam: ABSENT: carotid bruit, JVD, lymphadenopathy, thyromegaly Respiratory exam: PRESENT: decreased breath sounds - Bibasilar; absent right lower pablo, prolonged expiratory phas, symmetrical, tachypnea. ABSENT: rales , rhonchi, wheezes Cardiovascular exam: PRESENT: RRR, +S1, +S2. ABSENT: diastolic murmur, rubs, systolic murmur Pulses: PRESENT: normal dorsalis pedis pul Vascular exam: PRESENT: normal capillary refill GI/Abdominal exam: PRESENT: normal bowel sounds, soft. ABSENT: distended, guarding, mass, organolmegaly, rebound, tenderness Rectal exam: PRESENT: deferred Extremities exam: PRESENT: full ROM. ABSENT: calf tenderness, clubbing, pedal edema Neurological exam: PRESENT: oriented to person, oriented to place, oriented to time, oriented to situation, CN II-XII grossly intact, other - Arousable. ABSENT: motor sensory deficit Psychiatric exam: PRESENT: appropriate affect, normal mood. ABSENT: homicidal ideation, suicidal ideation Skin exam: PRESENT: dry, intact, warm, other - Pustules to right external near; continued edema to his nose and derrek-orbits though decreased significantly from yesterday. Surrounding erythema is nearly resolved.. ABSENT: cyanosis, rash Results Laboratory Results: 04/07/18 06:48 04/07/18 06:48 04/06/18 04/06/18 04/07/18 14:50 14:50 06:48 WBC 16.6 H 13.8 H RBC 4.07 L 3.59 L Hgb 11.1 L D 10.0 L Hct 32.7 L 28.9 L MCV 80 81 MCH 27.2 27.8 MCHC 33.9 34.5 RDW 13.8 13.9 Plt Count 253 249 Seg Neutrophils % 86.0 H 76.7 Lymphocytes % 7.9 L 12.3 L Monocytes % 5.0 9.1 Eosinophils % 0.9 1.7 Basophils % 0.2 0.2 Absolute Neutrophils 14.3 H 10.6 H Absolute Lymphocytes 1.3 1.7 Absolute Monocytes 0.8 1.3 Absolute Eosinophils 0.2 0.2 Absolute Basophils 0.0 0.0 Carbonic Acid HCO3/H2CO3 Ratio ABG pH ABG pCO2 ABG pO2 ABG HCO3 ABG O2 Saturation ABG Base Excess FiO2 Sodium 138.6 Potassium 2.9 L* Chloride 97 L Carbon Dioxide 30 Anion Gap 12 BUN 9 Creatinine 0.65 Est GFR ( Amer) > 60 Est GFR (Non-Af Amer) > 60 Glucose 157 H Calcium 8.2 L 04/07/18 04/07/18 06:48 12:55 WBC RBC Hgb Hct MCV MCH MCHC RDW Plt Count Seg Neutrophils % Lymphocytes % Monocytes % Eosinophils % Basophils % Absolute Neutrophils Absolute Lymphocytes Absolute Monocytes Absolute Eosinophils Absolute Basophils Carbonic Acid 1.14 HCO3/H2CO3 Ratio 25:1 ABG pH 7.49 H ABG pCO2 37.9 ABG pO2 67.3 L ABG HCO3 28.5 H ABG O2 Saturation 94.8 ABG Base Excess 5.0 FiO2 21% Sodium 138.2 Potassium 3.5 L Chloride 101 Carbon Dioxide 29 Anion Gap 8 BUN 9 Creatinine 0.67 Est GFR ( Amer) > 60 Est GFR (Non-Af Amer) > 60 Glucose 108 Calcium 7.8 L 04/05/18 04/05/18 04/05/18 06:30 06:30 11:22 Creatine Kinase 95 75 CK-MB (CK-2) 2.03 Troponin I < 0.012 04/05/18 04/05/18 04/05/18 11:22 19:25 19:25 Creatine Kinase 78 CK-MB (CK-2) 1.05 0.48 Troponin I < 0.012 < 0.012 Impressions: Facial Bones CT 04/04/18 23:59 IMPRESSION: 1. Mild right infraorbital and nasal soft tissue swelling, which may represent preseptal cellulitis. 2. No evidence of abscess or postseptal cellulitis. 3. Mild right-sided sinus mucosal inflammatory disease. Chest X-Ray 04/05/18 00:00 IMPRESSION: NO ACUTE RADIOGRAPHIC FINDING IN THE CHEST. Chest/Abdomen CTA 04/07/18 00:00 IMPRESSION: 1. There is no evidence of pulmonary emboli. 2. Bilateral pleural and subpleural nodules. Cannot entirely exclude neoplasm. Could represent infectious/ inflammatory etiology. 3. Loculated right pleural effusion with associated atelectasis. Minimal left pleural effusion with associated atelectasis. Assessment & Plan - Diagnosis (1) Facial cellulitis Is this a current diagnosis for this admission?: Yes Plan: Continued improved appearance; edema of the nose, right maxillary surface, right orbit. Erythema has decreased in size and intensity. Facial bone CT demonstrated mild right infraorbital and nasal soft tissue swelling, no evidence of abscess or post septal cellulitis, and mild right- sided sinus mucosal inflammatory disease. Leukocytosis is improving; 30.8--> 37.6--> 16.6--> 13.8 Lactic acid is normal. Blood cultures growing gram-positive cocci in clusters both sets. The patient is admitted to the medical floor. He has been empirically started on IV clindamycin and Unasyn; will adjust as cultures result ENT was consulted; spoke with Dr. Wells yesterday morning. He has reviewed patient's images; no interventions recommended at this time. Will see as an outpatient after discharge. Oxycodone as needed; avoid IV opiates secondary to continued sedation and concern for self-medicating (patient remains somnolent, difficult to arouse). Consider Head CT if patient continues to remain sedated, develops facial asymmetry or focal deficits. (2) Leukocytosis Is this a current diagnosis for this admission?: Yes Plan: Improved; secondary to #1. Cultures and antibiotics as above. (3) Tobacco abuse Is this a current diagnosis for this admission?: Yes Plan: Smoking cessation is encouraged. Nicotine or placement therapies are provided. (4) Bipolar 1 disorder Is this a current diagnosis for this admission?: Yes Plan: The patient's home dose Abilify and Thorazine are continued. (5) Chest pain Is this a current diagnosis for this admission?: Yes Plan: Secondary to bilateral loculated pleural effusions and pleural/sub pleural nodules. Unclear etiology; infectious versus malignancy. Troponins are negative x3. EKG demonstrates Sinus tachycardia without ST segment changes. Chest x-ray is normal. Echocardiogram is benign; LVEF >60%, no diastolic dysfunction, no evidence of thrombus or vegetation. (6) History of intravenous drug abuse Is this a current diagnosis for this admission?: Yes Plan: Patient endorses a history of IV drug use, previously on Suboxone; denies current use of either. Nursing has reported some suspicious activity in the room yesterday. Patient remains intermittently sedated out of proportion to medications provided here. UDS was positive for opiates (patient had already received subcu Dilaudid by collection time) and marijuana. We will need to monitor his pain medications closely; anticipate it will be difficult to obtain adequate pain control. Consider pain management and/or mental health consultations. (7) Bacteremia Is this a current diagnosis for this admission?: Yes Plan: Both sets of cultures are growing gram-positive cocci in clusters. The patient does have a history of MSSA. Repeat blood cultures are pending. He was empirically placed on IV clindamycin and Unasyn; will adjust as cultures result. (8) Bilateral pleural effusion Is this a current diagnosis for this admission?: Yes Plan: CTA of the chest was negative for pulmonary embolus; it does reveal bilateral pleural and subpleural nodules with a loculated right pleural effusion and minimal left pleural effusion with associated bibasilar atelectasis. ABG demonstrates compensated respiratory alkalosis. Cultures and antibiotics as above. Incentive spirometry to bedside. Supplemental oxygen as needed to maintain oxygen saturations greater than 91%. Pulmonology consultation. - Time Time Spent with patient: 15-24 minutes Medications reviewed and adjusted accordingly: Yes
[2018-04-07] MEDS: IBUPROFEN 800 MG TABLET PO SCH ×2 (15:28→21:59)
[2018-04-08] MEDS: AMPICILLIN SODIUM/SULBACTAM NA 3 GM in NORMAL SALINE 100 ML IV SCH ×2 (00:46→06:02)
[2018-04-08] MEDS: CLINDAMYCIN 900 MG/D5W RTU 900 MG/50 ML RTUPB IV SCH ×2 (01:46→09:07)
[2018-04-08] MEDS: HEPARIN SOD (PORCINE) 5,000 UNIT/ML 1 ML SYRINGE SUBCUT SCH ×3 (05:57→22:30)
[2018-04-08] MEDS: CHLORPHENIRAMINE MALEATE 4 MG TABLET PO SCH ×3 (06:01→22:28)
[2018-04-08] MEDS: IBUPROFEN 800 MG TABLET PO SCH ×3 (06:01→22:28)
[2018-04-08] MEDS: OXYCODONE HCL IR 5 MG TABLET PO PRN (06:02)
[2018-04-08 07:26] LABS: ABSOLUTE EOSINOPHILS # (AUTO) 0.6 10^3/uL (0.0-0.6); ABSOLUTE LYMPHOCYTES (AUTO) 0.9 10^3/uL (0.5-4.7); ABSOLUTE NEUT (AUTO) 6.2 10^3/uL (1.7-8.2); BASOPHILS % (AUTO) 0.5 % (0-2); EOSINOPHILS % (AUTO) 6.5 % (0-6); HEMATOCRIT 30.7 % (37.9-51.0); HEMOGLOBIN 10.6 g/dL (13.5-17.0); LYMPHOCYTES % (AUTO) 10.6 % (13-45); MEAN CORPUSCULAR HEMOGLOBIN 27.5 pg (27.0-33.4); MEAN CORPUSCULAR HGB CONC 34.5 g/dL (32.0-36.0); MEAN CORPUSCULAR VOLUME 80 fl (80-97); MONOCYTES % (AUTO) 11.1 % (3-13); PLATELET COUNT 282 10^3/uL (150-450); RED BLOOD COUNT 3.85 10^6/uL (4.35-5.55); RED CELL DISTRIBUTION WIDTH 13.9 % (11.5-14.0); SEGMENTED NEUTROPHILS % (AUTO) 71.3 % (42-78); TOTAL CELLS COUNTED % (AUTO) 100 %; WHITE BLOOD COUNT 8.7 10^3/uL (4.0-10.5)
[2018-04-08 07:33] LABS: ANION GAP 10 (5-19); BLOOD UREA NITROGEN 11 mg/dL (7-20); CALCIUM 8.1 mg/dL (8.4-10.2); CARBON DIOXIDE 29 mmol/L (22-30); CHLORIDE 105 mmol/L (98-107); GLUCOSE 115 mg/dL (75-110); POTASSIUM 3.5 mmol/L (3.6-5.0); SODIUM 144.1 mmol/L (137-145)
[2018-04-08] MEDS: FLUTICASONE NASAL SPRAY 50 MCG/SPRY 120 SPRAY/16 GM NASL SCH ×2 (09:06→22:32)
[2018-04-08] MEDS: CHLORPROMAZINE HCL 50 MG TABLET PO SCH (09:06)
[2018-04-08] MEDS: NICOTINE 21 MG/24 HR PATCH.TD24 TD SCH (09:07)
[2018-04-08] MEDS: DOCUSATE SODIUM 100 MG CAPSULE PO SCH ×2 (09:07→17:57)
[2018-04-08] MEDS: ARIPIPRAZOLE 5 MG TABLET PO SCH (09:07)
[2018-04-08] MEDS ORDERED: VANCOMYCIN HCL 0 MG in DEXTROSE 5%-WATER 250 ML IV NR (10:30)
--- NOTE | 2018-04-08 12:27 | PDOC PROGRESS REPORT ---
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 The patient was seen on morning rounds. He was found resting in bed comfortably on supplemental oxygen at 2lpm. He was sleeping soundly; he woke slightly when I said his name and shook his shoulder but quickly fell back to sleep. Nursing reports that he was awake and oriented x4 this morning; ate all of his breakfast, and then fell back to sleep after receiving his pain medications. He does desat slightly when sleeping to the high 80s; therefore has been placed on supplemental oxygen. Otherwise, nursing reports that he has improved comfort and pain control and no other complaints today. Patient does appear to be comfortable and is not noted to be in any acute distress. No concerns per nursing. Reason For Visit: FACIAL CELLULITIS,POLYSUBSTANCE ABUSE Physical Exam Vital Signs: Temp Pulse Resp BP Pulse Ox 97.5 F 73 16 109/66 95 04/08/18 11:47 04/08/18 11:47 04/08/18 11:47 04/08/18 11:47 04/08/18 11:47 Intake & Output 04/07/18 04/08/18 04/09/18 06:59 06:59 06:59 Intake Total 5121 1018 150 Balance 5121 1018 150 Weight 77.7 kg 78.2 kg General appearance: PRESENT: no acute distress, well-developed, well-nourished Head exam: PRESENT: atraumatic, normocephalic Eye exam: PRESENT: conjunctiva pink, EOMI, periorbital swelling - Decreased from yesterday, PERRLA. ABSENT: scleral icterus Ear exam: PRESENT: normal external ear exam Mouth exam: PRESENT: moist, tongue midline Neck exam: ABSENT: carotid bruit, JVD, lymphadenopathy, thyromegaly Respiratory exam: PRESENT: clear to auscultation hilaria, decreased breath sounds - diminised Rt lower field, symmetrical, unlabored. ABSENT: rales, rhonchi, wheezes Cardiovascular exam: PRESENT: RRR, +S1, +S2. ABSENT: diastolic murmur, rubs, systolic murmur Pulses: PRESENT: normal dorsalis pedis pul Vascular exam: PRESENT: normal capillary refill GI/Abdominal exam: PRESENT: normal bowel sounds, soft. ABSENT: distended, guarding, mass, organolmegaly, rebound, tenderness Rectal exam: PRESENT: deferred Extremities exam: PRESENT: full ROM. ABSENT: calf tenderness, clubbing, pedal edema Neurological exam: PRESENT: alert, awake, oriented to person, oriented to place , oriented to time, oriented to situation, CN II-XII grossly intact. ABSENT: motor sensory deficit Psychiatric exam: PRESENT: appropriate affect, normal mood. ABSENT: homicidal ideation, suicidal ideation Skin exam: PRESENT: dry, intact, warm, other - Pustules to right lateral nose/ external nare. Edema to his nose; erythema has resolved.. ABSENT: cyanosis, rash Results Laboratory Results: 04/08/18 07:02 04/08/18 07:02 04/07/18 04/08/18 04/08/18 12:55 07:02 07:02 WBC 8.7 RBC 3.85 L Hgb 10.6 L Hct 30.7 L MCV 80 MCH 27.5 MCHC 34.5 RDW 13.9 Plt Count 282 Seg Neutrophils % 71.3 Lymphocytes % 10.6 L Monocytes % 11.1 Eosinophils % 6.5 H Basophils % 0.5 Absolute Neutrophils 6.2 Absolute Lymphocytes 0.9 Absolute Monocytes 1.0 Absolute Eosinophils 0.6 Absolute Basophils 0.0 Carbonic Acid 1.14 HCO3/H2CO3 Ratio 25:1 ABG pH 7.49 H ABG pCO2 37.9 ABG pO2 67.3 L ABG HCO3 28.5 H ABG O2 Saturation 94.8 ABG Base Excess 5.0 FiO2 21% Sodium 144.1 Potassium 3.5 L Chloride 105 Carbon Dioxide 29 Anion Gap 10 BUN 11 Creatinine 0.57 Est GFR ( Amer) > 60 Est GFR (Non-Af Amer) > 60 Glucose 115 H Calcium 8.1 L 04/05/18 11:22 Blood Blood Culture - Final Mrsa (Meth Resis Staph Aureus) 04/05/18 04/05/18 04/05/18 06:30 06:30 11:22 Creatine Kinase 95 75 CK-MB (CK-2) 2.03 Troponin I < 0.012 04/05/18 04/05/18 04/05/18 11:22 19:25 19:25 Creatine Kinase 78 CK-MB (CK-2) 1.05 0.48 Troponin I < 0.012 < 0.012 Impressions: Facial Bones CT 04/04/18 23:59 IMPRESSION: 1. Mild right infraorbital and nasal soft tissue swelling, which may represent preseptal cellulitis. 2. No evidence of abscess or postseptal cellulitis. 3. Mild right-sided sinus mucosal inflammatory disease. Chest X-Ray 04/05/18 00:00 IMPRESSION: NO ACUTE RADIOGRAPHIC FINDING IN THE CHEST. Chest/Abdomen CTA 04/07/18 00:00 IMPRESSION: 1. There is no evidence of pulmonary emboli. 2. Bilateral pleural and subpleural nodules. Cannot entirely exclude neoplasm. Could represent infectious/ inflammatory etiology. 3. Loculated right pleural effusion with associated atelectasis. Minimal left pleural effusion with associated atelectasis. Assessment & Plan - Diagnosis (1) Facial cellulitis Is this a current diagnosis for this admission?: Yes Plan: Continued improved appearance; edema present to nose and right orbit is decreased from yesterday. Erythema has resolved. Facial bone CT demonstrated mild right infraorbital and nasal soft tissue swelling, no evidence of abscess or post septal cellulitis, and mild right- sided sinus mucosal inflammatory disease. Leukocytosis has resolved. Lactic acid is normal. Blood cultures positive for MRSA in both sets; resistant to penicillins and clindamycin. The patient is admitted to the medical floor. Based upon blood culture results; patient is transition to IV vancomycin. ENT was consulted; spoke with Dr. Wells. He has reviewed patient's images; no interventions recommended at this time. Will see as an outpatient after discharge. Oxycodone as needed; avoid IV opiates secondary to continued sedation and concern for self-medicating (patient remains somnolent, difficult to arouse). Consider Head CT if patient continues to remain sedated, develops facial asymmetry or focal deficits. (2) Leukocytosis Is this a current diagnosis for this admission?: Yes Plan: Resolved; secondary to #1. Cultures and antibiotics as above. (3) Tobacco abuse Is this a current diagnosis for this admission?: Yes Plan: Smoking cessation is encouraged. Nicotine or placement therapies are provided. (4) Bipolar 1 disorder Is this a current diagnosis for this admission?: Yes Plan: The patient's home dose Abilify and Thorazine are continued. (5) Chest pain Is this a current diagnosis for this admission?: Yes Plan: Secondary to bilateral loculated pleural effusions and pleural/sub pleural nodules. Unclear etiology; infectious versus malignancy. Troponins are negative x3. EKG demonstrates Sinus tachycardia without ST segment changes. Chest x-ray is normal. Echocardiogram is benign; LVEF >60%, no diastolic dysfunction, no evidence of thrombus or vegetation. (6) History of intravenous drug abuse Is this a current diagnosis for this admission?: Yes Plan: Patient endorses a history of IV drug use, previously on Suboxone; denies current use of either. Nursing has reported some suspicious activity in the room yesterday. Patient remains intermittently sedated out of proportion to medications provided here. UDS was positive for opiates (patient had already received subcu Dilaudid by collection time) and marijuana. We will need to monitor his pain medications closely; anticipate it will be difficult to obtain adequate pain control. Consider pain management and/or mental health consultations. (7) Bacteremia Is this a current diagnosis for this admission?: Yes Plan: Both sets of cultures grew MRSA with numerous resistances. Repeat blood cultures growing gram-positive cocci. He was empirically placed on IV clindamycin and Unasyn; received 2 days of therapy. Transition to IV vancomycin sensitivities result. Will obtain a third set of blood cultures after 24 hours of vancomycin therapy. (8) Bilateral pleural effusion Is this a current diagnosis for this admission?: Yes Plan: CTA of the chest was negative for pulmonary embolus; it does reveal bilateral pleural and subpleural nodules with a loculated right pleural effusion and minimal left pleural effusion with associated bibasilar atelectasis. ABG demonstrates compensated respiratory alkalosis. Cultures and antibiotics as above. Incentive spirometry to bedside. Supplemental oxygen as needed to maintain oxygen saturations greater than 91%. Pulmonology consultation. - Time Time Spent with patient: 15-24 minutes Medications reviewed and adjusted accordingly: Yes Anticipated discharge: Home
[2018-04-08] MEDS: VANCOMYCIN HCL 1,250 MG in DEXTROSE 5%-WATER 250 ML IV SCH ×2 (15:14→22:30)
--- NOTE | 2018-04-08 19:52 | CONSULTATION REPORT E ---
Consultation Report NAME: CODY CHAVIRA : 1980 AGE: 37Y DATE: 04/07/2018 ROOM: 415 A TO: DILMA BURKS M.D. FROM: JUAN ALBERTO MEI M.D. Requesting Physician HISTORY OF PRESENT ILLNESS: The patient is a 37-year-old male who came in with right facial swelling and facial cellulitis, admitted and he was given IV Unasyn and IV clindamycin. He came in with a white count of 30,000. The patient has been complaining of this right-sided pain over the last 2 days. He has history of IV drug abuse and smoking. Currently the patient is feeling better. He has a mild headache on and off. No nausea, vomiting, diarrhea, or pleuritic chest pain on admission. He denies any increased shortness of breath or purulent sputum production. PAST MEDICAL HISTORY: 1. Hypertension. 2. Migraine. 3. Bipolar disorder. 4. Depression. 5. Substance abuse. 6. Tobacco dependency. SURGICAL HISTORY: 1. Orthopedic surgery back x2, sciatica. 2. Right leg. SOCIAL HISTORY: The patient lives with friend. Currently he smokes everyday. He drinks alcohol socially. Has history of illicit drug use. He came in with positive initial illicit drug use. FAMILY HISTORY: Hypertension. MEDICATIONS: 1. Vancomycin. 2. Clindamycin. 3. *------* capsule, 2 capsules three times a day. ALLERGIES: 1. HALDOL. 2. TORADOL. REVIEW OF SYSTEMS: CONSTITUTIONAL: No fever, chills, or headache. EYES: Denies any visual changes. EARS: No hearing changes. CARDIOVASCULAR: Denies any exertional dyspnea or anginal heart. RESPIRATORY: Complained of pleuritic chest pain on admission and slight shortness of breath. No purulent sputum production. GENITOURINARY: No dysuria or hematuria. EXTREMITIES: No joint swelling, no cellulitis. PHYSICAL EXAMINATION: GENERAL: The patient appeared sleepy. VITAL SIGNS: Afebrile with temperature 97.1 with a T-max of 99.5. Two days ago the patient's temperature went up to 101.4. Heart rate is 86. Blood pressure is 94/51, blood pressure earlier was 111/63. Respiration is 21. Saturation is 91% on nasal cannula 2 liters. EYES: No jaundice or pallor. EARS, NOSE, AND THROAT: No ear drainage. No nasal discharge. HEAD: Some facial swelling on the right side. CHEST AND LUNGS: No wheezing, no rhonchi, no coarse crackles. CARDIOVASCULAR: S1, S2 distinct. Normal rate and regular rhythm. ABDOMEN: Flabby, positive bowel sounds, soft, nondistended, nontender. EXTREMITIES: No joint swelling, no cellulitis. LABORATORY DATA: CBC done today showed a white count of 13.8 from 37.6 the day before yesterday, hemoglobin is 10, hematocrit is 28.9, platelet count is 249. ABG done today showed pH of 7.49, pCO2 of 37.9, pO2 of 67.3, saturation 94.8. Chemistry done today showed sodium 138.2, potassium is 3.5, chloride 101, CO2 is 29, BUN is 9, creatinine is 0.7, glucose is 108, calcium is 7.8. IMAGING STUDIES: Chest CT scan done today showed loculated pleural effusion, more in the right than on the left, a small amount. Nodular opacity involving the right lower lobe and the left lower lobe and left upper lobe and the right middle lobe; was suspicious for a septic emboli. ASSESSMENT: 1. Severe sepsis, most likely due to facial cellulitis. 2. Pulmonary nodules bilateral. -Possibly infectious process. 4. Pleural effusion bilateral, loculated, more on the right than the left side. - small. PLAN/RECOMMENDATION: 1. Continue IV vancomycin and IV Unasyn. The patient seems to respond to the current IV antibiotics. 2. The pleural effusion is too small to do an ultrasound guided thoracentesis. We will continue to watch the pleural effusion. 3. Recommend a transesophageal echo to rule out infected endocarditis. 4. We will await for the blood cultures which were positive. DICTATING PHYSICIAN: DILMA BURKS MD,MATI,MPH [id number] PHY#: [id number] ID: [id number] JOB#: [id number] ACCT: [id number] cc:DILMA BURKS M.D. > [facility]
--- NOTE | 2018-04-09 05:02 | PROGRESS NOTE E ---
Progress Note NAME: CODY CHAVIRA : 1980 AGE: 37Y DATE: 04/08/2018 ROOM: 415 SUBJECTIVE: The patient is a 37-year-old white male who came in with right facial swelling and bilateral pulmonary nodules and a pleural effusion. The patient seemed to be doing well over the last 24 hours. There was no fever noted. The patient has been sleeping most of the time, or lethargic. There is no nausea, vomiting, diarrhea. OBJECTIVE: GENERAL: The patient appeared lethargic, afebrile, not in apparent respiratory distress. VITAL SIGNS: Temperature is 98.2, with a T-max of 99.5. Blood pressure is 108/63, heart rate of 74, respiratory rate of 16. Saturation is 91% on room air. EYES: Show no jaundice or pallor. Right eye appeared swollen. Both pupils are reactive. CHEST AND LUNGS: No wheezing, no rhonchi, no coarse crackles. CARDIOVASCULAR: S1, S2 distinct. Normal rate. Regular rhythm. ABDOMEN: Flabby. Positive bowel sounds. Soft, nondistended, nontender. EXTREMITIES: No joint swelling. No cellulitis. LABORATORY: CBC done today showed white count of 8.7, hemoglobin is 10.6, hematocrit 38.7, platelet count is 282. Chemistry done today showed sodium is 144, potassium is 3.5, chloride 105, CO2 is 29, BUN is 11, creatinine is 0.57, glucose 115, calcium is 8.1. I think a toxicology showed urine opiates positive and marijuana also positive. Negative for urine methadone, barbiturates, phencyclidine, amphetamines, benzodiazepines, and negative for urine chem screen. Blood cultures, which were done on admission 04/05/2018, showed positive for MRSA. The blood cultures done on 04/06/2018 positive on blood culture bottle x1 only, gram-positive cocci. ASSESSMENT: 1. BACTEREMIA, MRSA. 2. LOCULATED PLEURAL EFFUSION, SMALL, RIGHT SIDE. 3. PULMONARY OPACITIES AND NODULES BILATERAL, MORE ON THE RIGHT SIDE. - POSSIBLE INFECTIOUS ETIOLOGY. BACTEREMIC PULMONARY SEEDING COULD NOT BE COMPLETELY EXCLUDED. - POSSIBLY RELATED TO INFECTIVE ENDOCAARDITIS. 4. HISTORY OF IV DRUG USE. 5. FACIAL CELLULITIS. PLAN/RECOMMENDATIONS: 1. Recommend a transesophageal echo to determine presence of infective endocarditis. The patient may require 4-6 weeks of antibiotic therapy if the patient has infective endocarditis. We may require patient's transfer to a tertiary care center where the ARTIE can be performed. Infectious Disease service may be consulted to evaluate and follow patient adis if patient has infective endocarditis. 2. Recommend Head CT scan and possible lumbar tap if the patient remains lethargic. 3. Continue IV vancomycin. DICTATING PHYSICIAN: DILMA BURKS MD,MATI,MPH [id number] PHY#: [id number] ID: [id number] JOB#: [id number] ACCT: [id number] cc: > MTDD
[2018-04-09 05:13] LABS: HEMOGLOBIN 10.5 g/dL (13.5-17.0); MEAN CORPUSCULAR HEMOGLOBIN 27.3 pg (27.0-33.4); MEAN CORPUSCULAR HGB CONC 33.8 g/dL (32.0-36.0); MEAN CORPUSCULAR VOLUME 81 fl (80-97); PLATELET COUNT 321 10^3/uL (150-450); RED BLOOD COUNT 3.84 10^6/uL (4.35-5.55); RED CELL DISTRIBUTION WIDTH 14.2 % (11.5-14.0); WHITE BLOOD COUNT 9.3 10^3/uL (4.0-10.5)
[2018-04-09] MEDS: HEPARIN SOD (PORCINE) 5,000 UNIT/ML 1 ML SYRINGE SUBCUT SCH ×3 (05:33→22:14)
[2018-04-09] MEDS: IBUPROFEN 800 MG TABLET PO SCH ×3 (05:34→22:14)
[2018-04-09] MEDS: VANCOMYCIN HCL 1,250 MG in DEXTROSE 5%-WATER 250 ML IV SCH ×3 (05:34→23:02)
[2018-04-09 05:35] LABS: ANION GAP 10 (5-19); BLOOD UREA NITROGEN 11 mg/dL (7-20); CALCIUM 8.2 mg/dL (8.4-10.2); CARBON DIOXIDE 29 mmol/L (22-30); CHLORIDE 104 mmol/L (98-107); GLUCOSE 165 mg/dL (75-110); POTASSIUM 3.2 mmol/L (3.6-5.0); SODIUM 143.1 mmol/L (137-145)
[2018-04-09] MEDS: CHLORPHENIRAMINE MALEATE 4 MG TABLET PO SCH ×3 (05:35→22:14)
[2018-04-09] MEDS: DOCUSATE SODIUM 100 MG CAPSULE PO SCH ×2 (10:59→17:28)
[2018-04-09] MEDS: CHLORPROMAZINE HCL 50 MG TABLET PO SCH (10:59)
[2018-04-09] MEDS: NICOTINE 21 MG/24 HR PATCH.TD24 TD SCH (11:00)
[2018-04-09] MEDS: ARIPIPRAZOLE 5 MG TABLET PO SCH (11:00)
[2018-04-09] MEDS: FLUTICASONE NASAL SPRAY 50 MCG/SPRY 120 SPRAY/16 GM NASL SCH ×2 (11:00→22:14)
--- NOTE | 2018-04-09 13:08 | RADIOLOGY REPORT (SQ) ---
EXAM DESCRIPTION: CT HEAD WITHOUT COMPLETED DATE/TIME: 04/09/2018 12:51 pm REASON FOR STUDY: Decreased mental status COMPARISON: 07/18/2013 TECHNIQUE: Axial images acquired through the brain without intravenous contrast. Images reviewed wi th bone, brain and subdural windows. Additional sagittal and coronal reconstructions were generated. Images stored on PACS. All CT scanners at this facility use dose modulation, iterative reconstruction, and/or weight based d osing when appropriate to reduce radiation dose to as low as reasonably achievable (ALARA). [facility]: Dose Right [facility]: CareDose [facility]: Dose Right [facility]: Teradose 4D [facility]: Smart TeamVisibility RADIATION DOSE: CT Rad equipment meets quality standard of care and radiation dose reduction techniq ues were employed. CTDIvol: 53.2 mGy. DLP: 1150 mGy-cm. mGy. LIMITATIONS: None. FINDINGS: VENTRICLES: Normal size and contour. CEREBRUM: No masses. No hemorrhage. No midline shift. No evidence for acute infarction. Normal gra y/white matter differentiation. No areas of low density in the white matter. CEREBELLUM: No masses. No hemorrhage. No alteration of density. No evidence for acute infarction. EXTRAAXIAL SPACES: No fluid collections. No masses. ORBITS AND GLOBE: No intra- or extraconal masses. Normal contour of globe without masses. CALVARIUM: No fracture. PARANASAL SINUSES: No fluid or mucosal thickening. SOFT TISSUES: No mass or hematoma. OTHER: No other significant finding. IMPRESSION: NO ACUTE INTRACRANIAL IMAGING FINDINGS. EVIDENCE OF ACUTE STROKE: NO. COMMENT: Quality ID # [id number]: Final reports with documentation of one or more dose reduction techniques (e.g., Automated exposure control, adjustment of the mA and/or kV according to patient size, use of iterative reconstruction technique) TECHNICAL DOCUMENTATION: JOB ID: [id number] [employer]- All Rights Reserved Reading location - IP/workstation name: [email or web address]
--- NOTE | 2018-04-09 15:17 | PDOC PROGRESS REPORT ---
Subjective Progress Note for:: 04/09/18 Subjective:: The patient is a 37-year-old male with a medical history of bipolar disorder, IV drug use (denies current use), and tobacco dependence with continuous use who was admitted [facility] 04/05/18 for facial cellulitis. The patient was seen on afternoon rounds. He was found resting in bed comfortably on room air. He was sleeping soundly; but woke easily when I set his name. He complains of intermittent headaches, right-sided facial pain, chest wall pain with deep inspiration and cough, and fatigue. He denies blurred vision, focal deficits, dizziness, palpitations, dyspnea, orthopnea, abdominal pain, nausea and vomiting. We discussed concern regarding his persistent fatigue. He is relieved to know that his head CT was normal but declines LP study at this time. He was ambivalent about recommendations for a ARTIE. He denies ongoing recreational drug use. He has no new questions or concerns. No concerns per nursing. Reason For Visit: FACIAL CELLULITIS,POLYSUBSTANCE ABUSE Physical Exam Vital Signs: Temp Pulse Resp BP Pulse Ox 97.9 F 74 18 111/66 94 04/09/18 11:59 04/09/18 11:59 04/09/18 11:59 04/09/18 11:59 04/09/18 11:59 Intake & Output 04/08/18 04/09/18 04/10/18 06:59 06:59 06:59 Intake Total 1018 1552 250 Balance 1018 1552 250 Weight 78.2 kg 76.9 kg General appearance: PRESENT: no acute distress, well-developed, well-nourished - Overweight Head exam: PRESENT: atraumatic, normocephalic Eye exam: PRESENT: conjunctiva pink, EOMI, PERRLA. ABSENT: scleral icterus Ear exam: PRESENT: normal external ear exam Mouth exam: PRESENT: moist, tongue midline Neck exam: ABSENT: carotid bruit, JVD, lymphadenopathy, thyromegaly Respiratory exam: PRESENT: clear to auscultation hilaria, decreased breath sounds - bibasilar; R>L, symmetrical, unlabored. ABSENT: rales, rhonchi, wheezes Cardiovascular exam: PRESENT: RRR, +S1, +S2. ABSENT: diastolic murmur, rubs, systolic murmur Pulses: PRESENT: normal dorsalis pedis pul Vascular exam: PRESENT: normal capillary refill GI/Abdominal exam: PRESENT: normal bowel sounds, soft. ABSENT: distended, guarding, mass, organolmegaly, rebound, tenderness Rectal exam: PRESENT: deferred Extremities exam: PRESENT: full ROM. ABSENT: calf tenderness, clubbing, pedal edema Neurological exam: PRESENT: alert, awake, oriented to person, oriented to place , oriented to time, oriented to situation, CN II-XII grossly intact, other - Lethargic; wakes easily today. ABSENT: motor sensory deficit Psychiatric exam: PRESENT: appropriate affect, normal mood. ABSENT: homicidal ideation, suicidal ideation Skin exam: PRESENT: dry, warm, other - Pustules to right lateral nose/near; slight edema to nose and right periorbit. No surrounding erythema. Continued improvement. ABSENT: cyanosis, rash Results Laboratory Results: 04/09/18 04:57 04/09/18 04:57 04/09/18 04/09/18 04:57 04:57 WBC 9.3 RBC 3.84 L Hgb 10.5 L Hct 31.0 L MCV 81 MCH 27.3 MCHC 33.8 RDW 14.2 H Plt Count 321 Sodium 143.1 Potassium 3.2 L Chloride 104 Carbon Dioxide 29 Anion Gap 10 BUN 11 Creatinine 0.59 Est GFR ( Amer) > 60 Est GFR (Non-Af Amer) > 60 Glucose 165 H Calcium 8.2 L 04/06/18 14:50 Blood Blood Culture - Final Mrsa (Meth Resis Staph Aureus) 04/05/18 11:22 Blood Blood Culture - Final Mrsa (Meth Resis Staph Aureus) 04/05/18 04/05/18 04/05/18 06:30 06:30 11:22 Creatine Kinase 95 75 CK-MB (CK-2) 2.03 Troponin I < 0.012 04/05/18 04/05/18 04/05/18 11:22 19:25 19:25 Creatine Kinase 78 CK-MB (CK-2) 1.05 0.48 Troponin I < 0.012 < 0.012 Impressions: Facial Bones CT 04/04/18 23:59 IMPRESSION: 1. Mild right infraorbital and nasal soft tissue swelling, which may represent preseptal cellulitis. 2. No evidence of abscess or postseptal cellulitis. 3. Mild right-sided sinus mucosal inflammatory disease. Chest X-Ray 04/05/18 00:00 IMPRESSION: NO ACUTE RADIOGRAPHIC FINDING IN THE CHEST. Chest/Abdomen CTA 04/07/18 00:00 IMPRESSION: 1. There is no evidence of pulmonary emboli. 2. Bilateral pleural and subpleural nodules. Cannot entirely exclude neoplasm. Could represent infectious/ inflammatory etiology. 3. Loculated right pleural effusion with associated atelectasis. Minimal left pleural effusion with associated atelectasis. Head CT 04/09/18 00:00 IMPRESSION: NO ACUTE INTRACRANIAL IMAGING FINDINGS. EVIDENCE OF ACUTE STROKE: NO. Assessment & Plan - Diagnosis (1) Facial cellulitis Is this a current diagnosis for this admission?: Yes Plan: Continued improved appearance; edema present to nose and right orbit. Erythema has resolved. Facial bone CT demonstrated mild right infraorbital and nasal soft tissue swelling, no evidence of abscess or post septal cellulitis, and mild right- sided sinus mucosal inflammatory disease. Leukocytosis has resolved. Lactic acid is normal. Blood cultures positive for MRSA in both sets. Head CT was normal. The patient is admitted to the medical floor. Based upon blood culture results; patient is transition to IV vancomycin; day # 2. ENT was consulted; spoke with Dr. Wells. He has reviewed patient's images; no interventions recommended at this time. Will see as an outpatient after discharge. Oxycodone as needed; avoid IV opiates secondary to continued sedation and concern for self-medicating (patient remains somnolent, difficult to arouse). (2) Leukocytosis Is this a current diagnosis for this admission?: Yes Plan: Resolved; secondary to #1. Cultures and antibiotics as above. (3) Tobacco abuse Is this a current diagnosis for this admission?: Yes Plan: Smoking cessation is encouraged. Nicotine or placement therapies are provided. (4) Bipolar 1 disorder Is this a current diagnosis for this admission?: Yes Plan: The patient's home dose Abilify and Thorazine are continued. (5) Chest pain Is this a current diagnosis for this admission?: Yes Plan: Secondary to bilateral loculated pleural effusions and pleural/sub pleural nodules. Unclear etiology; infectious versus malignancy. Troponins are negative x3. EKG demonstrates Sinus tachycardia without ST segment changes. Chest x-ray is normal. Echocardiogram is benign; LVEF >60%, no diastolic dysfunction, no evidence of thrombus or vegetation. Will contact [facility] tomorrow to arrange for ARTIE. (6) History of intravenous drug abuse Is this a current diagnosis for this admission?: Yes Plan: Patient endorses a history of IV drug use, previously on Suboxone; denies current use of either. Nursing has reported some suspicious activity in the room yesterday. Patient remains intermittently sedated out of proportion to medications provided here. UDS was positive for opiates (patient had already received subcu Dilaudid by collection time) and marijuana. Questionable amphetamines. We will need to monitor his pain medications closely; anticipate it will be difficult to obtain adequate pain control. Consider pain management and/or mental health consultations. (7) Bacteremia Is this a current diagnosis for this admission?: Yes Plan: Blood cultures (04/05/2018) MRSA with numerous resistances. Blood cultures (04/06/2018) MRSA. Repeat blood cultures obtained again today following 24 hours of vancomycin therapy. He was empirically placed on IV clindamycin and Unasyn; received 2 days of therapy. Transitioned to IV vancomycin; Day #2. (8) Bilateral pleural effusion Is this a current diagnosis for this admission?: Yes Plan: CTA of the chest was negative for pulmonary embolus; it does reveal bilateral pleural and subpleural nodules with a loculated right pleural effusion and minimal left pleural effusion with associated bibasilar atelectasis. ABG demonstrates compensated respiratory alkalosis. Cultures and antibiotics as above. Incentive spirometry to bedside. Supplemental oxygen as needed to maintain oxygen saturations greater than 91%. Pulmonology consultation. (9) Mental status, decreased Is this a current diagnosis for this admission?: Yes Plan: The patient is difficult to arouse, but alert and oriented and following all directions when awake. Likely secondary to infectious process. Also consider withdrawal versus ongoing recreational drug use. Head CT was normal. Chemistries are improved; acidosis is resolved. Maintaining oxygen saturations on low flow O2 via nasal cannula. Providing judicious use of oxycodone; avoiding IV opiates. Avoiding benzodiazepines. Discussed recommendations for LP; patient declines at this time. He has no nuchal rigidity or focal deficits. - Time Time Spent with patient: 15-24 minutes Medications reviewed and adjusted accordingly: Yes - Inpatient Certification Based on my medical assessment, after consideration of the patient's comorbidities, presenting symptoms, or acuity I expect that the services needed warrant INPATIENT care.: Yes I certify that my determination is in accordance with my understanding of Medicare's requirements for reasonable and necessary INPATIENT services [42 CFR 412.3e].: Yes Medical Necessity: Need for IV Antibiotics
[2018-04-09] MEDS ORDERED: POTASSIUM CHLORIDE 10 MEQ CAPSULE.ER PO ONE (15:30)
[2018-04-10] MEDS: HEPARIN SOD (PORCINE) 5,000 UNIT/ML 1 ML SYRINGE SUBCUT SCH (05:33)
[2018-04-10] MEDS: IBUPROFEN 800 MG TABLET PO SCH (05:33)
[2018-04-10] MEDS: VANCOMYCIN HCL 1,250 MG in DEXTROSE 5%-WATER 250 ML IV SCH (05:33)
[2018-04-10] MEDS: CHLORPHENIRAMINE MALEATE 4 MG TABLET PO SCH (05:34)
[2018-04-10 07:01] LABS: HEMOGLOBIN 10.6 g/dL (13.5-17.0); MEAN CORPUSCULAR HEMOGLOBIN 26.8 pg (27.0-33.4); MEAN CORPUSCULAR HGB CONC 33.2 g/dL (32.0-36.0); MEAN CORPUSCULAR VOLUME 81 fl (80-97); PLATELET COUNT 397 10^3/uL (150-450); RED BLOOD COUNT 3.97 10^6/uL (4.35-5.55); RED CELL DISTRIBUTION WIDTH 13.8 % (11.5-14.0); WHITE BLOOD COUNT 11.1 10^3/uL (4.0-10.5)
[2018-04-10] MEDS ORDERED: OXYCODONE HCL IR 5 MG TABLET PO PRN (08:10)
[2018-04-10 08:20] VITALS: BP 120/71
--- NOTE | 2018-04-10 08:27 | PROGRESS NOTE E ---
Progress Note NAME: CODY CHAVIRA : 1980 AGE: 37Y DATE: 04/09/2018 ROOM: 415 SUBJECTIVE: The patient is a 37-year-old white male who came in with pleural effusion, pulmonary nodules bilaterally. Today, patient appeared to be feeling well, claimed that he has headache but seems to be better. Denies any worsening headache or vomiting or diarrhea or chest pain. Denies any increased sputum production or hemoptysis. OBJECTIVE: GENERAL: The patient awake, alert, oriented x3; afebrile. VITAL SIGNS: Temperature is 97.9, with a T-max of 98.6. Blood pressure is 111/66, heart rate of 74, respiratory rate of 18. Saturation is 94% on room air. EYES: Show no jaundice or pallor. EAR, NOSE, AND THROAT: No ear drainage. No nasal discharge. CHEST AND LUNGS: No wheezing, no rhonchi, no coarse crackles. CARDIOVASCULAR: S1, S2 distinct. Normal rate. Regular rhythm. ABDOMEN: Flabby. Positive bowel sounds. Soft, nondistended, nontender. EXTREMITIES: No joint swelling. No cellulitis. LABORATORY: CBC done today showed white count of 9.3, hemoglobin is 10.5, hematocrit 31, platelet count is 221. Chemistry done today showed sodium is 143, potassium is 3.2, chloride 104, bicarb is 29, BUN is 11, creatinine is 0.59, glucose 165, calcium is 8.2. ASSESSMENT: 1. BACTEREMIA, MRSA. CURRENTLY ON IV VANCOMYCIN. 2. LOCULATED PLEURAL EFFUSION, - SMALL, RIGHT SIDE. WE WILL CONTINUE TO WATCH HIS PLEURAL EFFUSION. ON ULTRASOUND RIGHT NOW IS TOO SMALL FOR THORACENTESIS. HIGH RISK FOR PNEUMOTHORAX. - MAY IMPROVE WITH IV AND ORAL ANTIBIOTICS LATER. 3. PULMONARY OPACITIES RIGHT LUNG AND PULMONARY NODULES BILATERAL. POSSIBLE INFECTIOUS ETIOLOGY. POSSIBLY RELATED TO INFECTIVE ENDOCARDITIS. 4. HISTORY OF IV DRUG ABUSE AND MULTIDRUG USE. 5. FACIAL CELLULITIS. PLAN/RECOMMENDATIONS: 1. Recommend a transesophageal echo to determine presence of infective endocarditis. Patient may need to be transferred to a tertiary care facility where ARTIE is done. 2. Continue IV vancomycin. 3. Recommend counseling for drug rehabilitation. 4. Will sign off today. If you have any questions please feel free to call me. DICTATING PHYSICIAN: DILMA BURKS MD,MATI,MPH [id number] PHY#: [id number] ID: [id number] JOB#: [id number] ACCT: [id number] cc: > SHERRYD
[2018-04-10 09:07] LABS: ANION GAP 13 (5-19); BLOOD UREA NITROGEN 8 mg/dL (7-20); CALCIUM 8.7 mg/dL (8.4-10.2); CARBON DIOXIDE 28 mmol/L (22-30); CHLORIDE 103 mmol/L (98-107); GLUCOSE 123 mg/dL (75-110); POTASSIUM 3.6 mmol/L (3.6-5.0); SODIUM 143.9 mmol/L (137-145)
[2018-04-10] MEDS ORDERED: OXYCODONE-ACETAMINOPHEN 5-325 MG TABLET PO PRN ×2 (10:46)
[2018-04-10] MEDS ORDERED: FENTANYL CITRATE INJ/PF 100 MCG/2 ML AMPUL IV PRN (10:47)
[2018-04-10] MEDS: DOCUSATE SODIUM 100 MG CAPSULE PO SCH (10:55)
[2018-04-10] MEDS ORDERED: VANCOMYCIN HCL 1,500 MG in DEXTROSE 5%-WATER 250 ML IV SCH (14:00)
--- NOTE | 2018-04-10 15:22 | PDOC DISCHARGE SUMMARY ---
General - Admit/Disc Date/PCP Admission Date/Primary Care Provider: 04/05/18 02:51 Discharge Date: 04/10/18 - Discharge Diagnosis (1) Facial cellulitis Is this a current diagnosis for this admission?: Yes Summary: Improved. Facial bone CT demonstrated mild right infraorbital and nasal soft tissue swelling, no evidence of abscess or post septal cellulitis, and mild right- sided sinus mucosal inflammatory disease. Leukocytosis has resolved. Lactic acid is normal. Blood cultures positive for MRSA in both sets. Head CT was normal. The patient was admitted to the medical floor and initially placed on IV Zosyn and clindamycin (2 days of therapy). Upon culture results confirming MRSA; the patient was transitioned to IV vancomycin (2 days of therapy). ENT was consulted; requested the patient be provided outpatient follow-up at time of discharge. Due to excessive sedation, IV opiates were minimized. Pain control was achieved with as needed oxycodone. Today however, the patient became acutely agitated at lack of IV medication availability. The patient's nurse attempted to educate the patient on his pain medication regiment (Percocet 5 5/325 1-2 tabs every 6 hours as needed with IV fentanyl 25 mcg twice daily for breakthrough pain); he reportedly became irate and subsequently left AGAINST MEDICAL ADVICE. (2) Leukocytosis Is this a current diagnosis for this admission?: Yes Summary: Resolved. Secondary to facial cellulitis and bacteremia. (3) Tobacco abuse Is this a current diagnosis for this admission?: Yes Summary: Smoking cessation was encouraged; nicotine or placement therapies were provided. (4) Bipolar 1 disorder Is this a current diagnosis for this admission?: Yes Summary: The patient's home dose Abilify and Thorazine were continued. (5) Chest pain Is this a current diagnosis for this admission?: Yes Summary: Secondary to bilateral loculated pleural effusions and pleural/sub pleural nodules. Unclear etiology; infectious versus malignancy. Troponins are negative x3. EKG demonstrates Sinus tachycardia without ST segment changes. Chest x-ray is normal. Echocardiogram is benign; LVEF >60%, no diastolic dysfunction, no evidence of thrombus or vegetation. Arrangements were made for the patient to be transported to [facility] tomorrow for a ARTIE and then return to our facility for continued IV antibiotic therapy for 2-6 weeks dependent upon culture and ARTIE results. The patient was agreeable to the plan of care this morning. However, early this afternoon, he left AGAINST MEDICAL ADVICE. (6) History of intravenous drug abuse Is this a current diagnosis for this admission?: Yes Summary: Patient endorses a history of IV drug use, previously on Suboxone; denies current use of either. Nursing has reported some suspicious activity in the room yesterday. Patient remains intermittently sedated out of proportion to medications provided here. UDS was positive for opiates (patient had already received subcu Dilaudid by collection time) and marijuana. Questionable amphetamines. Due to excessive somnolence; IV opiates were minimized. Upon waking today, the patient became irate at learning that his IV fentanyl was available twice daily for breakthrough pain only and subsequently left AGAINST MEDICAL ADVICE prior to my opportunity to meet with him to further discuss his pain medication regiment. (7) Bacteremia Is this a current diagnosis for this admission?: Yes Summary: Blood cultures (04/05/2018); both sets grew MRSA with numerous resistances. Blood cultures (04/06/2018); one set grew MRSA. Repeat blood cultures obtained 04/10/18 is pending. He was empirically placed on IV clindamycin and Unasyn; received 2 days of therapy. Transitioned to IV vancomycin following MRSA results; he received 2 days of therapy. Unfortunately, he has left AGAINST MEDICAL ADVICE prior to full evaluation for possible endocarditis and completing antibiotic course of therapy for MRSA bacteremia. (8) Bilateral pleural effusion Is this a current diagnosis for this admission?: Yes Summary: CTA of the chest was negative for pulmonary embolus; it does reveal bilateral pleural and subpleural nodules with a loculated right pleural effusion and minimal left pleural effusion with associated bibasilar atelectasis. ABG demonstrates compensated respiratory alkalosis. Cultures and antibiotics as above. The patient was provided supplemental oxygen as needed to maintain saturations greater than 91%. Pulmonology consultation was obtained; recommended ARTIE. [facility] was contacted; arrangements were made for the patient to be transported there tomorrow morning for ARTIE. The patient was made aware of the recommendations and was initially agreeable to this plan of care, however, left AMA shortly later. (9) Mental status, decreased Is this a current diagnosis for this admission?: Yes Summary: Throughout the admission, the patient remained difficult to arouse, but alert and oriented and following all directions when awake. Likely secondary to infectious process. Also consider withdrawal versus ongoing recreational drug use. Head CT was normal. Chemistries are improved; acidosis has resolved. Maintaining oxygen saturations on room air. UDS revealed opiates, THS, and unconfirmed amphetamines. He was provided p.o. oxycodone with adequate control of his pain; he actually has not had a dose in the last 24 hours. Today, the patient was awake, alert, and agitated upon my arrival to his room. He reported that his pain has been poorly controlled and requests IV pain medications. Discussed continued p.o. oxycodone 1-2 tabs as needed with IV fentanyl for breakthrough pain only. The patient was agreeable to the plan of care. However, approximately 45 minutes later I received a phone call from nursing staff reporting that the patient was irate regarding the lack of availability of IV medications and was leaving AGAINST MEDICAL ADVICE. - Additional Information Resuscitation Status: Full Code Home Medications: Aripiprazole [Abilify 10 mg Tablet] 10 mg PO DAILY 04/05/18 Buprenorphine HCl/Naloxone HCl [Suboxone 8 mg-2 mg Sl Film] 1 film SL TID Chlorpromazine HCl [Thorazine 50 mg Tablet] 100 mg PO DAILY 04/05/18 History of Present Illness History of Present Illness: Per H&P by Dr. Quiles: CODY CHAVIRA is a 37 year old male with a past medical history of IV drug abuse and tobacco who presents with 2 days of right-sided facial pain following the discovery of a pustule inside of his nare on the right side. Attempts to express fluctuance on several occasions has resulted in worsening right face pain and swelling. In the emergency room he is found to have leukocytosis of 30,000 and a right sided maxillary sinusitis and preseptal cellulitis without abscess. He denies headache, blurred vision, nausea or vomiting or stiff neck. He receives empiric antibiotics and referred to the hospitalist for admission. Patient complains of an abrupt onset of chest pain. No shortness of breath palpitations nausea vomiting Emergency room nursing staff is concerned for excessive sedation and odd affect following visitation by several family members. Physical Exam Vital Signs: Temp Pulse Resp BP Pulse Ox 98.0 F 68 20 120/71 98 04/10/18 08:07 04/10/18 08:07 04/10/18 08:07 04/10/18 08:07 04/10/18 08:07 Intake & Output 04/09/18 04/10/18 04/11/18 06:59 06:59 06:59 Intake Total 1552 2386 250 Balance 1552 2386 250 Weight 76.9 kg 77.9 kg General appearance: PRESENT: no acute distress, well-developed, well-nourished. ABSENT: cooperative Head exam: PRESENT: atraumatic, normocephalic Eye exam: PRESENT: conjunctiva pink, EOMI, PERRLA. ABSENT: scleral icterus Ear exam: PRESENT: normal external ear exam Mouth exam: PRESENT: moist, tongue midline Neck exam: ABSENT: carotid bruit, JVD, lymphadenopathy, thyromegaly Respiratory exam: PRESENT: clear to auscultation hilaria, decreased breath sounds - Bibasilar, symmetrical, unlabored. ABSENT: rales, rhonchi, wheezes Cardiovascular exam: PRESENT: RRR, +S1, +S2. ABSENT: diastolic murmur, rubs, systolic murmur Pulses: PRESENT: normal dorsalis pedis pul Vascular exam: PRESENT: normal capillary refill GI/Abdominal exam: PRESENT: normal bowel sounds, soft. ABSENT: distended, guarding, mass, organolmegaly, rebound, tenderness Rectal exam: PRESENT: deferred Extremities exam: PRESENT: full ROM. ABSENT: calf tenderness, clubbing, pedal edema Neurological exam: PRESENT: alert, awake, oriented to person, oriented to place , oriented to time, oriented to situation, CN II-XII grossly intact. ABSENT: motor sensory deficit Psychiatric exam: PRESENT: agitated, appropriate affect, normal mood. ABSENT: homicidal ideation, suicidal ideation Skin exam: PRESENT: dry, warm, other - Slight edema to his nose; healing crusts to the right exterior lateral nare. Edema to his right maxillary face and right periorbital is resolved. Erythema has resolved.. ABSENT: cyanosis, rash Results Laboratory Results: 04/10/18 06:46 04/10/18 08:37 04/10/18 04/10/18 06:46 08:37 WBC 11.1 H RBC 3.97 L Hgb 10.6 L Hct 32.0 L MCV 81 MCH 26.8 L MCHC 33.2 RDW 13.8 Plt Count 397 Sodium 143.9 Potassium 3.6 Chloride 103 Carbon Dioxide 28 Anion Gap 13 BUN 8 Creatinine 0.61 Est GFR ( Amer) > 60 Est GFR (Non-Af Amer) > 60 Glucose 123 H Calcium 8.7 04/05/18 04/05/18 04/05/18 06:30 06:30 11:22 Creatine Kinase 95 75 CK-MB (CK-2) 2.03 Troponin I < 0.012 04/05/18 04/05/18 04/05/18 11:22 19:25 19:25 Creatine Kinase 78 CK-MB (CK-2) 1.05 0.48 Troponin I < 0.012 < 0.012 Impressions: Facial Bones CT 04/04/18 23:59 IMPRESSION: 1. Mild right infraorbital and nasal soft tissue swelling, which may represent preseptal cellulitis. 2. No evidence of abscess or postseptal cellulitis. 3. Mild right-sided sinus mucosal inflammatory disease. Chest X-Ray 04/05/18 00:00 IMPRESSION: NO ACUTE RADIOGRAPHIC FINDING IN THE CHEST. Chest/Abdomen CTA 04/07/18 00:00 IMPRESSION: 1. There is no evidence of pulmonary emboli. 2. Bilateral pleural and subpleural nodules. Cannot entirely exclude neoplasm. Could represent infectious/ inflammatory etiology. 3. Loculated right pleural effusion with associated atelectasis. Minimal left pleural effusion with associated atelectasis. Head CT 04/09/18 00:00 IMPRESSION: NO ACUTE INTRACRANIAL IMAGING FINDINGS. EVIDENCE OF ACUTE STROKE: NO. Qualifiers - * PATIENT BEING DISCHARGED WITH ANY OF THE FOLLOWING DIAGNOSIS: No Plan Discharge Plan: Patient left AGAINST MEDICAL ADVICE.
== END 2018-04-10 13:37 | disposition left against medical advice (07) | DRG 603 ==
LOC: ER 22:24 → EH 04-05 02:51 → 4N 04-05 16:20
PROVIDERS: ADMIT Internal Medicine; ATTEND Internal Medicine
DX: L03.213 Periorbital cellulitis (principal); J90 Pleural effusion, not elsewhere classified; R78.81 Bacteremia; B95.62 Methicillin resistant Staphylococcus aureus infection as the cause of diseases classified elsewhere; J32.0 Chronic maxillary sinusitis; I10 Essential (primary) hypertension; D72.829 Elevated white blood cell count, unspecified; R91.1 Solitary pulmonary nodule; R07.9 Chest pain, unspecified; F41.8 Other specified anxiety disorders; F31.9 Bipolar disorder, unspecified; F19.90 Other psychoactive substance use, unspecified, uncomplicated; F17.210 Nicotine dependence, cigarettes, uncomplicated
CPT/HCPCS: 36415; 36600; 70450; 70487; 71045; 71275; 80048; 80053; 80202; 80307; 81001; 82550; 82553; 82803; 83036; 83605; 84484; 85025; 85027; 87040; 87077; 87186; 93005; 93010; 93306; 96365; 99285; J0295; J1170; J1644; J2270; J3370; J3480; J3490; J7030; J7060; J7620

== ENCOUNTER 2018-04-10 15:27 | Inpatient (IN) | payer MEDICAID ==
--- NOTE | 2018-04-10 15:33 | ER Document Report ---
ED General - General Stated Complaint: CHEST PAIN Time Seen by Provider: 04/10/18 15:32 Notes: This is a 37-year-old male to emergency department for evaluation of chest pain. Patient was recently hospitalized for MRSA sepsis. Patient has loculated pleural effusions likely MRSA. Had a facial cellulitis. Had multiple CT scans. [facility] to rule out bacterial endocarditis when patient became irate with the nursing staff and the providers upstairs while he was admitted. Wanted more IV pain medication. Apparently patient was excessively somnolent over several days while he was admitted so they were concerned that he had some sort of narcotic exposure likely recreational. Patient does have a history of substance abuse. Patient left AGAINST MEDICAL ADVICE and then called the ambulance here shortly after leaving and they brought him back. Patient states that he continues to have the chest pain. Vital signs are within normal limits. No other symptoms at this time. TRAVEL OUTSIDE OF THE [place] IN LAST 30 DAYS: No - HPI Onset: Just prior to arrival - Related Data Allergies/Adverse Reactions: haloperidol [From Haldol] Allergy (Severe, Verified 01/11/18 11:47) Anaphylaxis ketorolac tromethamine [From Toradol] Allergy (Severe, Verified 04/07/18 12:09) Past Medical History - General Information source: Patient - Social History Smoking Status: Current Some Day Smoker Cigarette use (# per day): Yes Frequency of alcohol use: Occasional Drug Abuse: Marijuana Lives with: Alone Family History: Hypertension - Past Medical History Cardiac Medical History: Reports: Hx Hypertension Pulmonary Medical History: Denies: Hx Tuberculosis Neurological Medical History: Reports: Hx Migraine Renal/ Medical History: Denies: Hx Peritoneal Dialysis Psychiatric Medical History: Reports: Hx Anxiety, Hx Bipolar Disorder, Hx Depression Past Surgical History: Reports: Hx Orthopedic Surgery - Back x 2, Sciatica, Right Leg. Denies: Hx Pacemaker - Immunizations Hx Diphtheria, Pertussis, Tetanus Vaccination: Yes Review of Systems - Review of Systems Notes: Constitutional: denies: Chills, Diaphoresis, Fever, Malaise, Weakness EENT: denies: Eye discharge, Blurred vision, Tearing, Double vision, Nose congestion, Nose discharge, Throat swelling, Mouth pain Cardiovascular: denies: Palpitations, Heart racing, Orthopnea, Dyspnea,. Complains of chest pain Respiratory: denies: Cough, Hurts to breathe, Wheezing,. Shortness of breath Gastrointestinal: denies: Abdominal pain, Diarrhea, Nausea, Vomiting, Black stools, bright red blood in stool Genitourinary: denies: Burning, Dysuria, Discharge, Frequency, Flank pain, Hematuria Musculoskeletal: denies: Joint pain, Joint swelling, Muscle pain, Muscle stiffness, back pain Hematologic/Lymphatic: denies: Anemia, Easy bleeding, Easy bruising, Blood clots Neurological/Psychological: denies: Confusion, Dementia, Depression, Loss of consciousness Skin: No lesions, no masses,. Complains of facial cellulitis currently under treatment for MRSA Physical Exam - Vital signs Vitals: Temp Pulse Resp BP Pulse Ox 98.3 F 87 20 142/87 H 99 04/10/18 15:36 04/10/18 15:36 04/10/18 15:36 04/10/18 15:36 04/10/18 15:36 Interpretation: Normal - General General appearance: Appears well, Alert - HEENT Head: Normocephalic, Atraumatic Eyes: Normal Pupils: PERRL - Respiratory Respiratory status: No respiratory distress Chest status: Nontender Breath sounds: Normal Chest palpation: Normal - Cardiovascular Rhythm: Regular Heart sounds: Normal auscultation Murmur: No - Abdominal Inspection: Normal Distension: No distension Bowel sounds: Normal Tenderness: Nontender Organomegaly: No organomegaly - Back Back: Normal, Nontender - Extremities General upper extremity: Normal inspection, Nontender, Normal color, Normal ROM , Normal temperature General lower extremity: Normal inspection, Nontender, Normal color, Normal ROM , Normal temperature, Normal weight bearing. No: Jamie's sign - Neurological Neuro grossly intact: Yes Cognition: Normal Orientation: AAOx4 Stanton Coma Scale Eye Opening: Spontaneous Russell Coma Scale Verbal: Oriented Russell Coma Scale Motor: Obeys Commands Russell Coma Scale Total: 15 Speech: Normal Motor strength normal: LUE, RUE, LLE, RLE Sensory: Normal - Psychological Associated symptoms: Normal affect, Normal mood - Skin Skin Temperature: Warm Skin Moisture: Dry Skin Color: Normal, Other - Mild redness around the nose appears to be improving /subacute cellulitis appearance. Course - Re-evaluation Re-evalutation: 04/10/18 15:48 We will consult with medicine with regards to what they would like for us to do at this time. 04/10/18 15:56 At this time will admit. No testing done at this time as patient has already had his daily testing. Will admit to the medical floor. - Vital Signs Vital signs: Temp Pulse Resp BP Pulse Ox 98.3 F 87 20 142/87 H 99 04/10/18 15:36 04/10/18 15:36 04/10/18 15:36 04/10/18 15:36 04/10/18 15:36 Discharge - Discharge Clinical Impression: Bacteremia due to methicillin resistant Staphylococcus aureus Condition: Good Disposition: ADMITTED INPATIENT Admitting Provider: Ulisesist - [facility] Admitted: Telemetry
[2018-04-10] MEDS ORDERED: MAG HYDROX/AL HYDROX/SIMETH SUSP 30 ML UDCUP PO PRN (16:16)
[2018-04-10] MEDS ORDERED: ACETAMINOPHEN 325 MG TABLET PO PRN (16:16)
[2018-04-10] MEDS ORDERED: IPRATROPIUM/ALBUTEROL 0.5-2.5 MG/3 ML AMPUL NEB PRN (16:16)
[2018-04-10] MEDS ORDERED: ONDANSETRON HCL INJ/PF 4 MG/2 ML SDV IV PRN (16:16)
[2018-04-10] MEDS ORDERED: OXYCODONE-ACETAMINOPHEN 5-325 MG TABLET PO PRN (16:16)
[2018-04-10] MEDS ORDERED: FENTANYL CITRATE INJ/PF 100 MCG/2 ML AMPUL IV PRN (16:22)
--- NOTE | 2018-04-10 16:55 | RADIOLOGY REPORT (SQ) ---
EXAM DESCRIPTION: CHEST SINGLE VIEW COMPLETED DATE/TIME: 04/10/2018 4:40 pm REASON FOR STUDY: dyspnea COMPARISON: AP chest 04/05/2018 CT angio chest 04/07/2018, 07/08/2013 EXAM PARAMETERS: NUMBER OF VIEWS: One view. TECHNIQUE: Single frontal radiographic view of the chest acquired. RADIATION DOSE: NA LIMITATIONS: None. FINDINGS: LUNGS AND PLEURA: Minimal airspace disease with air bronchograms in the medial right lung base marked with a [place]. Pulmonary nodules seen on CT 04/07/2018 worrisome for septic emboli are difficult to visualize on toda y's portable chest film. No gross pleural effusions or pneumothorax. MEDIASTINUM AND HILAR STRUCTURES: No masses. Contour normal. HEART AND VASCULAR STRUCTURES: Heart normal in size. Normal vasculature. BONES: Old left clavicle fracture HARDWARE: None in the chest. OTHER: No other significant finding. IMPRESSION: Minimal airspace disease in the medial right lung base, atelectasis versus pneumonia. Nodules from probable septic emboli seen in the lungs on CT 04/07/2018 are difficult to visualize by t angie's plain film. Findings discussed with Jolly Bran NP TECHNICAL DOCUMENTATION: JOB ID: [id number] [employer]- All Rights Reserved Reading location - IP/workstation name: [email or web address]
[2018-04-10] MEDS ORDERED: MORPHINE SULFATE 10 MG/ML INJ IM ONE (17:00)
--- NOTE | 2018-04-10 17:09 | Progress Note ---
Provider Note Provider Note: Addendum to the H&P: The patient was admitted on 04/05/18 for facial cellulitis; left AGAINST MEDICAL ADVICE 04/10/18 approximately 1130 this morning. The patient then re-presented to the emergency department by EMS 4 hours later with a complaint of continued dyspnea and chest wall discomfort. Please reference discharge summary dated 04/10/18. S: Patient reports continued chest wall discomfort with deep breath and cough; especially to the right side. The pain is nonradiating and not associated with diaphoresis, nausea, vomiting. He states that the discomfort is unchanged from earlier this morning and consistent with the pain he has been experiencing for the last several days. He denies IV drug use or other recreational drug use during his time away from the hospital. He does admit that he left due to agitation with the nursing staff over his pain medication regiment. This was reviewed in detail with the patient; he will be provided Percocet 1-2 tabs every 6 hours as needed with low- dose IV fentanyl twice daily as needed for breakthrough pain only. He is advised that the nurses are instructed to provide p.o. medication first for more consistent pain control. The patient states that he understands and is agreeable to the pain medication regimen as above. O: 98.3, HR 87, 142/87, RR 20, 99% on room air. Well-developed, well-nourished male, no acute distress. HEENT: Unchanged; slight edema to nose. Resolving cellulitis. Lungs: Even, unlabored breathing. Diminished right lower pablo. CVA: RRR, S1,S2. (-) R/G/M Abd: Soft, nontender Psych: A&Ox4. Tearful and apologetic. A&P: (1) Facial cellulitis Is this a current diagnosis for this admission?: Yes Plan: Resolving. Facial bone CT demonstrated mild right infraorbital and nasal soft tissue swelling, no evidence of abscess or post septal cellulitis, and mild right- sided sinus mucosal inflammatory disease. Leukocytosis has resolved. Lactic acid is normal. Blood cultures positive for MRSA in both sets. Head CT was normal. The patient is admitted to the medical floor. Based upon blood culture results; patient is transition to IV vancomycin; day # 2. Will resume. ENT was consulted previous admission; will see patient in office after d/c. spoke with Dr. Wells. (2) Leukocytosis Is this a current diagnosis for this admission?: Yes Plan: Resolved; secondary to #1. Cultures and antibiotics as above. (3) Tobacco abuse Is this a current diagnosis for this admission?: Yes Plan: Smoking cessation is encouraged. Nicotine or placement therapies are provided. (4) Bipolar 1 disorder Is this a current diagnosis for this admission?: Yes Plan: The patient's home dose Abilify and Thorazine are continued. Will consult mental health services for medication recommendations; specifically for agitation in patient who has had persistent somnolence and questionable ongoing recreational drug use while inpatient. (5) Chest pain Is this a current diagnosis for this admission?: Yes Plan: Secondary to bilateral loculated pleural effusions and pleural/sub pleural nodules. During previous admission: Troponins were negative x3, EKG demonstrates Sinus tachycardia without ST segment changes, w/ benign CXR. Echocardiogram is benign; LVEF >60%, no diastolic dysfunction, no evidence of thrombus or vegetation. Repeat CXR today demonstrated minimal airspace disease to the right medial lung base with nodules and probable septic emboli noted on previous CT (04/11/18) Resume IV vancomycin for MRSA. Incentive spirometer. Percocet 5/325 1-2 tabs every 6 hours as needed with IV fentanyl 25 mcg twice daily as needed breakthrough pain. Tylenol as needed. Scheduled Motrin. Daily Lidoderm patch. (6) History of intravenous drug abuse Is this a current diagnosis for this admission?: Yes Plan: Patient endorses a history of IV drug use, previously on Suboxone; denies current use of either. UDS (04/05/2018) was positive for opiates (patient had already received subcu Dilaudid by collection time) and marijuana. Questionable amphetamines. We will need to monitor his pain medications closely; anticipate it will be difficult to obtain adequate pain control. Consider pain management consultations. Mental health is consulted. (7) Bacteremia Is this a current diagnosis for this admission?: Yes Plan: Blood cultures (04/05/2018) MRSA with numerous resistances. Blood cultures (04/06/2018) MRSA. Repeat blood cultures obtained again today following 24 hours of vancomycin therapy. Will obtain another set today after returning from AMA status. He was empirically placed on IV clindamycin and Unasyn; received 2 days of therapy. Will resume IV vancomycin; Day #3 The patient had been placed on the schedule tomorrow at [facility] for a ARTIE ; subsequently canceled once patient left AMA. Will need to discuss with the patient the risks of endocarditis and necessity of testing and then reschedule the procedure. (8) Lung nodules Discussed with Dr. Trevino today; found on CT a of the chest (is 04/07/18). Pulmonary nodules are worrisome for septic emboli. The same study revealed bilateral pleural and subpleural nodules with loculated right pleural effusion with associated atelectasis. Cultures and antibiotics as above. Will need to obtain ARTIE; patient likely to require 6 weeks of IV antibiotic therapy.
[2018-04-10] MEDS ORDERED: VANCOMYCIN HCL 0 MG in DEXTROSE 5%-WATER 250 ML IV NR (17:15)
[2018-04-10 17:54] LABS: URINE AMPHETAMINES SCREEN NEGATIVE; URINE BARBITURATES SCREEN NEGATIVE; URINE BENZODIAZEPINES SCREEN NEGATIVE; URINE MARIJUANA (THC) SCREEN NEGATIVE; URINE METHADONE SCREEN NEGATIVE; URINE PHENCYCLIDINE SCREEN NEGATIVE
[2018-04-10 18:09] LABS: URINE COCAINE SCREEN NEGATIVE
[2018-04-10 19:12] LABS: ANION GAP 13 (5-19); BLOOD UREA NITROGEN 8 mg/dL (7-20); CARBON DIOXIDE 27 mmol/L (22-30); CHLORIDE 103 mmol/L (98-107); GLUCOSE 109 mg/dL (75-110); POTASSIUM 4.2 mmol/L (3.6-5.0); SODIUM 142.9 mmol/L (137-145)
[2018-04-10] MEDS: VANCOMYCIN HCL 1,500 MG in DEXTROSE 5%-WATER 250 ML IV SCH (19:24)
[2018-04-10] MEDS: OXYCODONE-ACETAMINOPHEN 5-325 MG TABLET PO PRN (19:29)
[2018-04-10] MEDS: IBUPROFEN 600 MG TABLET PO SCH ×2 (19:30→21:54)
[2018-04-10] MEDS: FAMOTIDINE 20 MG TABLET PO SCH (21:54)
[2018-04-10] MEDS: HEPARIN SOD (PORCINE) 5,000 UNIT/ML 1 ML SYRINGE SUBCUT SCH (21:56)
[2018-04-11] MEDS: OXYCODONE-ACETAMINOPHEN 5-325 MG TABLET PO PRN ×4 (02:23→21:15)
[2018-04-11] MEDS: VANCOMYCIN HCL 1,500 MG in DEXTROSE 5%-WATER 250 ML IV SCH ×3 (02:23→18:27)
[2018-04-11 05:34] LABS: HEMATOCRIT 32.9 % (37.9-51.0); HEMOGLOBIN 11.2 g/dL (13.5-17.0); MEAN CORPUSCULAR HEMOGLOBIN 27.5 pg (27.0-33.4); MEAN CORPUSCULAR HGB CONC 34.1 g/dL (32.0-36.0); MEAN CORPUSCULAR VOLUME 81 fl (80-97); PLATELET COUNT 444 10^3/uL (150-450); RED BLOOD COUNT 4.08 10^6/uL (4.35-5.55); RED CELL DISTRIBUTION WIDTH 13.8 % (11.5-14.0); WHITE BLOOD COUNT 11.5 10^3/uL (4.0-10.5)
[2018-04-11] MEDS: HEPARIN SOD (PORCINE) 5,000 UNIT/ML 1 ML SYRINGE SUBCUT SCH ×3 (05:40→21:17)
[2018-04-11] MEDS: IBUPROFEN 600 MG TABLET PO SCH ×3 (05:41→21:18)
[2018-04-11 06:03] LABS: ANION GAP 9 (5-19); BLOOD UREA NITROGEN 9 mg/dL (7-20); CALCIUM 8.4 mg/dL (8.4-10.2); CARBON DIOXIDE 29 mmol/L (22-30); CHLORIDE 105 mmol/L (98-107); GLUCOSE 119 mg/dL (75-110); SODIUM 142.9 mmol/L (137-145)
[2018-04-11 06:52] LABS: VANCOMYCIN,TROUGH 43.7 ug/mL (5.0-20.0)
[2018-04-11] MEDS ORDERED: FENTANYL CITRATE INJ/PF 100 MCG/2 ML AMPUL ONE (09:29)
[2018-04-11] MEDS: FAMOTIDINE 20 MG TABLET PO SCH ×2 (09:37→21:16)
[2018-04-11] MEDS: NICOTINE 14 MG/24 HR PATCH.TD24 TD SCH (09:37)
[2018-04-11] MEDS: FENTANYL CITRATE INJ/PF 100 MCG/2 ML AMPUL IV PRN ×2 (09:44→18:26)
--- NOTE | 2018-04-11 16:38 | PSYCHOLOGICAL NOTE ---
Psych Note - Psych Note Date seen by psych provider: 04/11/18 Time seen by psych provider: 14:00 - Chart review at 1400. Patient well known to the Behavioral Health team Psych Note: Reason for Consult: Bipolar, Polysubstance, Medication review/recommendation Contact Permissions: Unknown at this time Patient is a 37 year old male who was admitted to [facility] 04/05/18 for Cellulites and MRSA. He left AMA the morning of 04/10/18 and was brought back via EMS on same day at 1530. UDS was positive for Opiates (had been administered them during ED visit), Cannabis and Amphetamine type substance on 04/05/18. UDS was negative on 04/10/18 when brought back in. Psychiatric medications listed are Abilify 10MG QD and Thorazine 100MG QD and have not been started during visit. He is being administered multiple pain medications. He is going to be admitted as medical for 6 weeks due to need for IV antibiotics in order to treat MRSA and Endocarditis. Review of chart revealed patient was seen 3 times in 2013 by Behavioral Health and is well known to the Behavioral Health team. He was often manipulative in seeking pain medication and would do things like swallow batteries so he would need surgery and get pain medication. He would often endorse SI/HI in order to be hospitalized at times he was homeless in order to obtain MH services. Dr. Abe Galvan has documentation in from 06/19/13 and 06/17/17 referencing these behaviors, diagnoses and recommendations. He was typically made aware he would need to link up with outpatient MH services for ongoing treatment and follow physician directives. Diagnosis: 296.7 (F31.9) Bipolar I Disorder, Current or most recent episode unspecified by History History of Polysubstance Use and Opioid Withdrawal Medication recommendations made by the psychiatric medical provider, Dr. Iggy MD., includes: Restart Home Medications Continue Abilify 10MG daily for mood stabilization/depression Continue Thorazine 100MG daily for mood stabilization Also attending physicians are advised they will want to reduce pain medications to lowest possible given history of polysubstance use (specifically Opioid Use and Withdrawal) and the measures he would go to to get pain medications (such as swallowing batteries to get surgery and then obtain pain medication). Impression/Plan: Patient is cleared from acute psychiatric services. He should continue home psychiatric medications while in the hospital and then follow up with outpatient MH provider when discharged. Treating physicians should use pain medications minimally given substance abuse history. Consulted with Dr. Galvan regarding the management and care of patient. Attending Hospitalist made aware of recommendations and in agreement.
--- NOTE | 2018-04-11 18:07 | PDOC PROGRESS REPORT ---
Subjective Progress Note for:: 04/11/18 Subjective:: The patient is a 37-year-old male with a medical history of bipolar disorder, IV drug use (denies current use), and tobacco dependence with continuous use who was admitted [facility] 04/05/18 for facial cellulitis. The patient left AMA 04/10/18 and was subsequently readmitted 4 hours later for dyspnea and chest discomfort. Patient was seen on morning rounds. He was sleeping when I woke the room but woke easily when I set his name. He reports persistent chest discomfort with inspiration and deep breath. He denies dyspnea at present. He repeatedly asks to have his pain medication regiment increased; becoming slightly agitated when I tell him that were going to remain with Percocet every 4 hours with fentanyl for breakthrough pain available only if he is utilizing oral medications. He denies fever, chills, headache, dizziness, palpitations, orthopnea, abdominal pain, nausea and vomiting. He has no other questions or concerns. No concerns per nursing. Reason For Visit: MRSA BACTERIMA Physical Exam Vital Signs: Temp Pulse Resp BP Pulse Ox 97.8 F 83 18 123/72 100 04/11/18 16:28 04/11/18 16:28 04/11/18 16:28 04/11/18 16:28 04/11/18 16:28 Intake & Output 04/10/18 04/11/18 04/12/18 06:59 06:59 06:59 Intake Total 976 900 Output Total 300 Balance 676 900 Weight 81.7 kg General appearance: PRESENT: no acute distress, well-developed, well-nourished Head exam: PRESENT: atraumatic, normocephalic Eye exam: PRESENT: conjunctiva pink, EOMI, PERRLA. ABSENT: scleral icterus Ear exam: PRESENT: normal external ear exam Mouth exam: PRESENT: moist, tongue midline Neck exam: ABSENT: carotid bruit, JVD, lymphadenopathy, thyromegaly Respiratory exam: PRESENT: clear to auscultation hilaria, decreased breath sounds - Bibasilar; R>L, symmetrical, unlabored. ABSENT: rales, rhonchi, wheezes Cardiovascular exam: PRESENT: RRR, +S1, +S2. ABSENT: diastolic murmur, rubs, systolic murmur Pulses: PRESENT: normal dorsalis pedis pul Vascular exam: PRESENT: normal capillary refill GI/Abdominal exam: PRESENT: normal bowel sounds, soft. ABSENT: distended, guarding, mass, organolmegaly, rebound, tenderness Rectal exam: PRESENT: deferred Extremities exam: PRESENT: full ROM. ABSENT: calf tenderness, clubbing, pedal edema Neurological exam: PRESENT: alert, awake, oriented to person, oriented to place , oriented to time, oriented to situation, CN II-XII grossly intact. ABSENT: motor sensory deficit Psychiatric exam: PRESENT: agitated, appropriate affect, normal mood. ABSENT: homicidal ideation, suicidal ideation Skin exam: PRESENT: dry, intact, warm, other - Subacute cellulitis to the nose; healing crusts to the right lateral external nare. ABSENT: cyanosis, rash Results Laboratory Results: 04/11/18 04:00 04/11/18 04:00 04/10/18 04/11/18 04/11/18 18:15 04:00 04:00 WBC 11.5 H RBC 4.08 L Hgb 11.2 L Hct 32.9 L MCV 81 MCH 27.5 MCHC 34.1 RDW 13.8 Plt Count 444 Sodium 142.9 142.9 Potassium 4.2 4.0 Chloride 103 105 Carbon Dioxide 27 29 Anion Gap 13 9 BUN 8 9 Creatinine 0.59 0.60 Est GFR ( Amer) > 60 > 60 Est GFR (Non-Af Amer) > 60 > 60 Glucose 109 119 H Calcium 9.0 8.4 04/11/18 04:00 WBC RBC Hgb Hct MCV MCH MCHC RDW Plt Count Sodium Potassium Chloride Carbon Dioxide Anion Gap BUN Creatinine 0.61 Est GFR ( Amer) > 60 Est GFR (Non-Af Amer) > 60 Glucose Calcium 04/10/18 18:15 Troponin I < 0.012 Impressions: Chest X-Ray 04/10/18 16:18 IMPRESSION: Minimal airspace disease in the medial right lung base, atelectasis versus pneumonia. Nodules from probable septic emboli seen in the lungs on CT 04/07/2018 are difficult to visualize by today's plain film. Findings discussed with Jolly Bran NP Assessment & Plan - Diagnosis (1) Bacteremia Is this a current diagnosis for this admission?: Yes Plan: Blood cultures (04/05/2018) MRSA with numerous resistances. Blood cultures (04/06/2018) MRSA. Repeat blood cultures obtained again yesterday morning (prior to leaving AMA and following following 24 hours of vancomycin therapy) are negative at 24 hours. Repeat blood cultures obtained yesterday afternoon after returning from AMA are pending. He was empirically placed on IV clindamycin and Unasyn; received 2 days of therapy. Will resume IV vancomycin; Day #4 The patient had been placed on the schedule at [facility] for a ARTIE; subsequently canceled once patient left AMA. Discussed with patient the risks of untreated endocarditis. He appears to understand and be somewhat familiar with this as he reports that his significant other recently was treated for the same. Patient will benefit from ARTIE to evaluate for valvular disease. However, CT of the chest is highly suggestive of septic emboli, therefore would recommend proceeding with 6 weeks of IV antibiotic therapy once cultures obtained yesterday afternoon returned with no growth. Will hold on rescheduling ARTIE until the patient becomes clearly more compliant with recommendations, as I anticipate a high probability that he will go AMA again. (2) Lung nodules Is this a current diagnosis for this admission?: Yes Plan: Discussed with Dr. Trevino yesterday. Pulmonary nodules found on CTA Chest (04/07/18) are worrisome for septic emboli. The same study revealed bilateral pleural and subpleural nodules with loculated right pleural effusion with associated atelectasis. Cultures and antibiotics as above. Will need to obtain ARTIE; patient likely to require 6 weeks of IV antibiotic therapy. (3) Bipolar 1 disorder Is this a current diagnosis for this admission?: Yes Plan: The patient's home dose of Abilify and Thorazine are continued. Mental health services were consulted today; they are very familiar with this patient. Mental health services report that the patient has demonstrated severe manipulative behaviors and attempts to obtain opiate medications; stating that the patient has previously swallowed batteries in order to require surgery and obtain pain medications. Advised on weaning to the lowest dose of opiates possible for management of pain. (4) History of intravenous drug abuse Is this a current diagnosis for this admission?: Yes Plan: Patient endorses a history of IV drug use, previously on Suboxone; denies current use of either. UDS (04/05/2018) was positive for opiates (patient had already received subcu Dilaudid by collection time) and marijuana. Questionable amphetamines. We will need to monitor his pain medications closely; anticipate it will be difficult to obtain adequate pain control. Pain management is consulted; spoke with their provider today. She will place medication recommendations in her note. Mental health is consulted; recommend weaning to the lowest possible opiate medication due to history of seriously manipulative behavior in the past. (5) Tobacco abuse Is this a current diagnosis for this admission?: Yes Plan: Smoking cessation is encouraged; nicotine or placement therapies are provided. (6) Opiate abuse, continuous Is this a current diagnosis for this admission?: Yes Plan: As above. Pain management, mental health, and discharge planning is consulted. (7) Leukocytosis Is this a current diagnosis for this admission?: Yes Plan: Secondary to #1. Plan as above. - Time Time Spent with patient: Less than 15 minutes Smoking Cessation Education: 3 to 10 minutes Anticipated discharge: Home Within: Other - 6 weeks IV antibiotics - Inpatient Certification Based on my medical assessment, after consideration of the patient's comorbidities, presenting symptoms, or acuity I expect that the services needed warrant INPATIENT care.: Yes I certify that my determination is in accordance with my understanding of Medicare's requirements for reasonable and necessary INPATIENT services [42 CFR 412.3e].: Yes Medical Necessity: Need for IV Antibiotics
[2018-04-11] MEDS: HYDROXYZINE PAMOATE 25 MG CAPSULE PO PRN (18:26)
[2018-04-11 18:46] LABS: VANCOMYCIN,TROUGH 14.4 ug/mL (5.0-20.0)
[2018-04-12] MEDS: VANCOMYCIN HCL 1,500 MG in DEXTROSE 5%-WATER 250 ML IV SCH ×3 (01:14→17:00)
[2018-04-12] MEDS: OXYCODONE-ACETAMINOPHEN 5-325 MG TABLET PO PRN ×4 (01:15→22:56)
[2018-04-12] MEDS: FENTANYL CITRATE INJ/PF 100 MCG/2 ML AMPUL IV PRN (02:26)
[2018-04-12] MEDS: HEPARIN SOD (PORCINE) 5,000 UNIT/ML 1 ML SYRINGE SUBCUT SCH ×3 (05:29→21:15)
[2018-04-12] MEDS: IBUPROFEN 600 MG TABLET PO SCH ×3 (05:30→21:15)
[2018-04-12 06:29] LABS: HEMATOCRIT 31.4 % (37.9-51.0); HEMOGLOBIN 10.5 g/dL (13.5-17.0); MEAN CORPUSCULAR HEMOGLOBIN 27.1 pg (27.0-33.4); MEAN CORPUSCULAR HGB CONC 33.5 g/dL (32.0-36.0); MEAN CORPUSCULAR VOLUME 81 fl (80-97); PLATELET COUNT 483 10^3/uL (150-450); RED BLOOD COUNT 3.88 10^6/uL (4.35-5.55); WHITE BLOOD COUNT 16.6 10^3/uL (4.0-10.5)
[2018-04-12 06:54] LABS: ANION GAP 11 (5-19); BLOOD UREA NITROGEN 10 mg/dL (7-20); CALCIUM 8.5 mg/dL (8.4-10.2); CARBON DIOXIDE 26 mmol/L (22-30); CHLORIDE 105 mmol/L (98-107); GLUCOSE 148 mg/dL (75-110); POTASSIUM 4.2 mmol/L (3.6-5.0); SODIUM 141.6 mmol/L (137-145)
[2018-04-12] MEDS: LIDOCAINE 5% (700 MG) TRANSDERMAL ADH..PATCH TP SCH ×2 (07:19→09:46)
[2018-04-12] MEDS: ARIPIPRAZOLE 5 MG TABLET PO SCH (09:45)
[2018-04-12] MEDS: NICOTINE 14 MG/24 HR PATCH.TD24 TD SCH (09:46)
[2018-04-12] MEDS: FAMOTIDINE 20 MG TABLET PO SCH ×2 (09:46→21:15)
[2018-04-12] MEDS: CHLORPROMAZINE HCL 50 MG TABLET PO SCH (09:47)
[2018-04-12] MEDS ORDERED: (PENDING PHARMACY ID) (Aripiprazole [Abilify 10 Mg Tablet] 10 MG) PO SCH (10:00)
[2018-04-12] MEDS ORDERED: FENTANYL CITRATE INJ/PF 100 MCG/2 ML AMPUL IV PRN (11:59)
--- NOTE | 2018-04-12 14:02 | PROGRESS NOTE E ---
Progress Note NAME: CODY CHAVIRA : 1980 AGE: 37Y DATE: 04/12/2018 ROOM: 533 SUBJECTIVE: The patient is lying in bed. The patient awakened once but was not interactive with me. The patient was highly responsive to reflexes and noxious stimuli; however, he would not engage with me. The patient has had no reported episodes of vomiting nor diarrhea. The patient has been afebrile, and the patient does not voice any concerns at this time. REVIEW OF SYSTEMS: Unobtainable. MEDICATIONS: Reviewed. OBJECTIVE: GENERAL: The patient is a 37-year-old male who I do believe is awake, does not want to engage in the interview, squints his eyes closed, does not appear to be distressed. VITAL SIGNS: As follows: Temperature is 98.5, pulse 83, respirations 20, blood pressure is 122/54, oxygen saturation 98% on room air. SKIN: Warm and dry. No rash, not diaphoretic. HEENT: The patient does have the redness on his nose, the cellulitis. No evidence of JVP. CARDIOVASCULAR: Heart is regular. CHEST: Symmetrical, unlabored, clear to auscultation. EXTREMITIES: No edema. The patient does have an appropriate Babinski. PSYCHIATRIC: The patient is nonparticipatory. DIAGNOSTICS: Lab values are as follows. Hematology obtained on 04/12/2018: WBCs are 16.6, hemoglobin is 10.5, hematocrit is 31.4, platelet count is 483,000. Chemistry obtained on 04/12/2018: Sodium is 141, potassium 4.2, chloride 105, carbon dioxide 26, BUN 10, creatinine 0.68, glucose 148, calcium is 8.5. IMPRESSION AND PLAN: 1. MRSA BACTEREMIA. Will continue current antibiotic coverage. The patient will need a ARTIE. He did have one set up at [facility]; however, he left AMA; therefore, will hold off on rescheduling this until I make sure the patient is dedicated to getting better. 2. LUNG NODULES SUGGESTIVE FOR SEPTIC EMBOLI. 3. BIPOLAR DISORDER, TYPE 1. Continue the patient's home medications. 4. IV DRUG USER. On 02/03/2018 was positive for opiates at that time, possible marijuana, possible amphetamines; however, the patient left AMA for a window yesterday, uncertain what he ingested during this time. 5. OPIATE DEPENDENCY, CONTINUOUS. As per the above. 6. TOBACCO DEPENDENCY. Continue p.r.n. nicotine patch. 7. PAIN CONTROL. Given that the patient is somnolent and not very responsive, will go ahead and discontinue his Fentanyl because I am unsure if the patient may be ingesting other sources, and decrease Percocet to every 6 hours. The patient does have scheduled ibuprofen. DISPOSITION: THE PATIENT IS A FULL CODE. Pending the patient's symptomatology and diagnostic findings, will re-evaluate in the a.m. Time spent on this followup, including assessment/plan, physical examination, patient education, review of records, is 35 minutes. DICTATING PHYSICIAN: MANNY LEIGH NP [id number] [id number] PHY#: [id number] ID: [id number] JOB#: [id number] ACCT: [id number] cc: >
[2018-04-12] MEDS: HYDROXYZINE PAMOATE 25 MG CAPSULE PO PRN (16:56)
[2018-04-13] MEDS: VANCOMYCIN HCL 1,500 MG in DEXTROSE 5%-WATER 250 ML IV SCH (01:18)
[2018-04-13] MEDS: HYDROXYZINE PAMOATE 25 MG CAPSULE PO PRN (03:03)
[2018-04-13] MEDS ORDERED: CLONAZEPAM 1 MG TABLET PO ONE (03:15)
[2018-04-13] MEDS: IBUPROFEN 600 MG TABLET PO SCH ×3 (05:20→21:17)
[2018-04-13] MEDS: HEPARIN SOD (PORCINE) 5,000 UNIT/ML 1 ML SYRINGE SUBCUT SCH ×3 (05:20→21:17)
[2018-04-13] MEDS: OXYCODONE-ACETAMINOPHEN 5-325 MG TABLET PO PRN (05:21)
[2018-04-13 06:19] LABS: HEMATOCRIT 33.6 % (37.9-51.0); HEMOGLOBIN 11.2 g/dL (13.5-17.0); MEAN CORPUSCULAR HEMOGLOBIN 27.1 pg (27.0-33.4); MEAN CORPUSCULAR HGB CONC 33.3 g/dL (32.0-36.0); MEAN CORPUSCULAR VOLUME 81 fl (80-97); PLATELET COUNT 483 10^3/uL (150-450); RED BLOOD COUNT 4.14 10^6/uL (4.35-5.55); WHITE BLOOD COUNT 15.1 10^3/uL (4.0-10.5)
[2018-04-13 06:40] LABS: ANION GAP 12 (5-19); BLOOD UREA NITROGEN 8 mg/dL (7-20); CALCIUM 8.9 mg/dL (8.4-10.2); CARBON DIOXIDE 28 mmol/L (22-30); CHLORIDE 102 mmol/L (98-107); GLUCOSE 110 mg/dL (75-110); POTASSIUM 4.6 mmol/L (3.6-5.0); SODIUM 142.1 mmol/L (137-145)
[2018-04-13] MEDS ORDERED: METHADONE HCL 10 MG TABLET PO ONE (09:15)
[2018-04-13] MEDS: CHLORPROMAZINE HCL 50 MG TABLET PO SCH (10:03)
[2018-04-13] MEDS: ARIPIPRAZOLE 5 MG TABLET PO SCH (10:03)
[2018-04-13] MEDS: FAMOTIDINE 20 MG TABLET PO SCH ×2 (10:03→21:10)
[2018-04-13] MEDS: NICOTINE 14 MG/24 HR PATCH.TD24 TD SCH (10:07)
[2018-04-13] MEDS: LIDOCAINE 5% (700 MG) TRANSDERMAL ADH..PATCH TP SCH (10:15)
[2018-04-13] MEDS: VANCOMYCIN HCL 1,000 MG in DEXTROSE 5%-WATER 250 ML IV SCH ×3 (10:58→21:14)
--- NOTE | 2018-04-13 13:32 | PROGRESS NOTE E ---
Progress Note NAME: CODY CHAVIRA : 1980 AGE: 37Y DATE: 04/13/2018 ROOM: 533 SUBJECTIVE: The patient has been up and out of his bed all morning pacing to the door. The patient is agitated stating that he needs more pain medication. I had a lengthy discussion with the patient regarding this. He states that he does have chronic pain but also he feels that he is in opiate withdrawal. The patient is an IV drug user and is unable to quantify the exact amount of usage. The patient's last methadone dosage was 40 mg a day at the clinic. The patient was transitioned over to Suboxone which he of course abused and therefore unable to get an exact equivalency of his usage. After much discussion, this patient is agreeable to the prescribed regimen and the patient is agreeable to transfer for ARTIE. There has been no reported episodes of vomiting or diarrhea and the patient actually ate his entire breakfast tray this morning. REVIEW OF SYSTEMS: The rest of review of systems negative. MEDICATIONS: Reviewed. OBJECTIVE: GENERAL: The patient is a 37-year-old male who is awake, alert, he is oriented to person, place, time and situation. He is verbal, conversational. Does not appear to be distressed. VITAL SIGNS: As follows: Temperature is 98.2, pulse 97, respirations 16, blood pressure is 108/68, oxygen saturation 98% on room air. SKIN: Warm and dry. No rash, not diaphoretic. HEENT: Pupils are reactive, conjunctivae is pink. The patient's nose is a little red but I cannot appreciate actual cellulitis. CHEST: Clear. Symmetrical. ABDOMEN: Soft, nontender. EXTREMITIES: No edema. PSYCHIATRIC: The patient has quite borderline behavior. DIAGNOSTICS: Lab values are as follows. Hematology obtained on 04/13/2018: WBCs are 15.1, hemoglobin is 11.2, hematocrit is 32.6, platelet count is 483,000. Chemistry obtained on 04/13/2018: Sodium is 142, potassium 4.6, chloride 102, carbon dioxide 28, BUN 8, creatinine 0.73, glucose 110, calcium is 8.9, troponin is 0.012. IMPRESSION AND PLAN: 1. MRSA BACTEREMIA. Continue current antibiotic coverage with vancomycin. The patient did have a ARTIE set up at [facility]; however, he left AMA. The patient is now agreeable to going there. Will reach out to various tertiary centers to see if they will accept him for ARTIE. 2. LUNG NODULES SUGGESTIVE OF SEPTIC EMBOLI. 3. BIPOLAR DISORDER, TYPE 1. Continue his home medications. 4. IV DRUG USER. This appears to be polysubstance. The patient of course is tearful and states that he would like to change his life, however, he does not want to enroll in any particular program unless it is Suboxone. 5. OPIATE DEPENDENCY, CONTINUOUS. We will give the patient methadone to aid through withdrawal. 6. TOBACCO DEPENDENCY. Continue p.r.n. nicotine patch. 7. PAIN CONTROL. The patient was somnolent yesterday. He states that this was him acting out and not overmedicated. I am uncertain if the patient's ingesting any other sources. His room has been searched, however, he did leave AMA and come back and so forth. I made it clear to the patient that he will not be receiving any more IV forms of pain control. 8. FACIAL CELLULITIS. Resolved. DISPOSITION: THE PATIENT IS A FULL CODE. Pending the patient's symptomatology and diagnostic findings, will re-evaluate in the a.m. Time spent on this followup, including assessment/plan, physical examination, patient education is 35 minutes. DICTATING PHYSICIAN: MANNY LEIGH NP [id number] PHY#: [id number] ID: [id number] JOB#: [id number] ACCT: [id number] cc: > SHERRYD
[2018-04-13] MEDS: METHADONE HCL 10 MG TABLET PO SCH ×2 (14:55→21:10)
--- NOTE | 2018-04-13 17:31 | PDOC TRANSFER SUMMARY ---
General Admission Date/PCP: 04/10/18 16:30 - Transfer Diagnosis (1) Bacteremia due to methicillin resistant Staphylococcus aureus Is this a current diagnosis for this admission?: Yes Diagnosis Summary: Is on vancomycin. The patient will be transferred for ARTIE and then return to this facility for further management. (2) Intravenous drug user Is this a current diagnosis for this admission?: Yes Diagnosis Summary: Have made it clear to the patient that he will not be receiving IV opiates while in the hospital. Patient is agreeable to methadone to curb trial. (3) Opiate dependence, continuous Is this a current diagnosis for this admission?: Yes Diagnosis Summary: Have made it clear to the patient that he will not be receiving IV opiates while in the hospital. Patient is agreeable to methadone to curb trial. (4) Bipolar 1 disorder Is this a current diagnosis for this admission?: Yes (5) Facial cellulitis Is this a current diagnosis for this admission?: Yes Diagnosis Summary: Resolved. (6) Tobacco abuse Is this a current diagnosis for this admission?: Yes - Transfer Medications Home Medications: Aripiprazole [Abilify 10 mg Tablet] 10 mg PO DAILY 04/05/18 Buprenorphine HCl/Naloxone HCl [Suboxone 8 mg-2 mg Sl Film] 1 film SL TID Chlorpromazine HCl [Thorazine 50 mg Tablet] 100 mg PO DAILY 04/05/18 Transfer Medications: Current Medications Acetaminophen (Tylenol 325 Mg Tablet) 650 mg PO Q4HP PRN PRN Reason: FOR PAIN OR TEMP Stop: 05/10/18 16:15 Al Hydrox/Mg Hydrox/Simethicone (Maalox Plus Susp 30 Udcup) 30 ml PO Q6HP PRN PRN Reason: HEARTBURN Stop: 05/10/18 16:15 Aripiprazole (Abilify 5 Mg Tablet) 10 mg PO DAILY [facility] Stop: 05/12/18 09:59 Last Admin: 04/13/18 10:03 Dose: 10 mg Chlorpromazine HCl (Thorazine 50 Mg Tablet) 100 mg PO DAILY SHARON Stop: 05/12/18 09:59 Last Admin: 04/13/18 10:03 Dose: 100 mg Famotidine (Pepcid 20 Mg Tablet) 20 mg PO Q12 SHARON Stop: 05/10/18 21:59 Last Admin: 04/13/18 10:03 Dose: 20 mg Heparin Sodium (Porcine) (Heparin Inj 5,000 Units/Ml 1 Ml Syringe) 5,000 unit SUBCUT Q8 [facility] Stop: 05/10/18 21:59 Last Admin: 04/13/18 14:55 Dose: Not Given Hydroxyzine Pamoate (Vistaril 25 Mg Capsule) 25 mg PO BIDP PRN PRN Reason: ANXIETY Stop: 05/11/18 17:06 Last Admin: 04/13/18 03:03 Dose: 25 mg Vancomycin HCl 1,000 mg/ (Dextrose) 250 mls @ 166.667 mls/hr IV Q6A [facility] Stop: 04/20/18 09:59 Last Infusion: 04/13/18 17:02 Dose: Infused Ibuprofen (Motrin 600 Mg Tablet) 600 mg PO Q8 [facility] Stop: 05/10/18 16:59 Last Admin: 04/13/18 14:55 Dose: Not Given Influenza Virus Vaccine Quadrival (Fluarix Adlt Quad Vac 0.5 Ml Syr) 0.5 ml IM .DISCHARGE PRN PRN Reason: THIS MED IS NOT "PRN" Stop: 05/10/18 23:49 Lidocaine (Lidoderm 5% (700 Mg) Transdermal Patch) 1 patch TP DAILY [facility] Stop: 05/11/18 09:59 Last Admin: 04/13/18 10:15 Dose: Not Given Methadone HCl (Dolophine 10 Mg Tablet) 10 mg PO Q8 [facility] Stop: 04/20/18 13:59 Last Admin: 04/13/18 14:55 Dose: 10 mg Nicotine (Nicoderm 14 Mg/24 Hr Transdermal Patch) 1 each TD DAILY [facility] Stop: 05/11/18 09:59 Last Admin: 04/13/18 10:07 Dose: Not Given Ondansetron HCl (Zofran Inj/Pf 4 Mg/2 Ml Sdv) 4 mg IV Q6HP PRN PRN Reason: FOR NAUSEA/VOMITING Stop: 05/10/18 16:15 Oxycodone/Acetaminophen (Percocet 5-325 Mg Tablet) 1 tab PO Q6HP PRN PRN Reason: FOR PAIN Stop: 04/19/18 12:04 Last Admin: 04/13/18 05:21 Dose: 1 tab - Allergies Allergies/Adverse Reactions: haloperidol [From Haldol] Allergy (Severe, Verified 01/11/18 11:47) Anaphylaxis ketorolac tromethamine [From Toradol] Allergy (Severe, Verified 04/07/18 12:09) - Diet/Activity Discharge Diet: As Tolerated Discharge Activity: Activity As Tolerated Hospital Course Hospital Course: The patient was admitted on 04/05/18 for facial cellulitis MRSA bacteremia; left AGAINST MEDICAL ADVICE 04/10/18 approximately 1130. The patient then re- presented to the emergency department by EMS 4 hours later with a complaint of continued dyspnea and chest wall discomfort. Patient reported continued chest wall discomfort with deep breath and cough; especially to the right side. The pain is nonradiating and not associated with diaphoresis, nausea, vomiting. He states that the discomfort is unchanged from earlier this morning and consistent with the pain he has been experiencing for the last several days. He does admit that he left due to agitation with the nursing staff over his pain medication regiment. She has been treated with vancomycin times 72 hours. Is agreeable to ARTIE. Physical Exam Vital Signs: Temp Pulse Resp BP Pulse Ox 98.4 F 96 16 107/54 L 98 04/13/18 16:00 04/13/18 16:00 04/13/18 16:00 04/13/18 16:00 04/13/18 16:00 Intake & Output 04/11/18 04/12/18 04/13/18 23:59 23:59 23:59 Intake Total 2037 1150 1562 Balance 2037 1150 1562 Weight 81.7 kg 80.3 kg General appearance: PRESENT: no acute distress, well-developed, well-nourished Head exam: PRESENT: atraumatic, normocephalic Eye exam: PRESENT: conjunctiva pink, EOMI, PERRLA. ABSENT: scleral icterus Ear exam: PRESENT: normal external ear exam Mouth exam: PRESENT: moist, tongue midline Neck exam: ABSENT: carotid bruit, JVD, lymphadenopathy, thyromegaly Respiratory exam: PRESENT: clear to auscultation hilaria. ABSENT: rales, rhonchi, wheezes Cardiovascular exam: PRESENT: RRR. ABSENT: diastolic murmur, rubs, systolic murmur Pulses: PRESENT: normal dorsalis pedis pul Vascular exam: PRESENT: normal capillary refill GI/Abdominal exam: PRESENT: normal bowel sounds, soft. ABSENT: distended, guarding, mass, organolmegaly, rebound, tenderness Rectal exam: PRESENT: deferred Extremities exam: PRESENT: full ROM. ABSENT: calf tenderness, clubbing, pedal edema Neurological exam: PRESENT: alert, awake, oriented to person, oriented to place , oriented to time, oriented to situation, CN II-XII grossly intact. ABSENT: motor sensory deficit Psychiatric exam: PRESENT: unusual affect. ABSENT: appropriate affect, flat affect, homicidal ideation, suicidal ideation Skin exam: PRESENT: dry, intact, warm. ABSENT: cyanosis, rash Results Laboratory Results: Labs- Last Values WBC 15.1 10^3/uL (4.0-10.5) H 04/13/18 05:22 RBC 4.14 10^6/uL (4.35-5.55) L 04/13/18 05:22 Hgb 11.2 g/dL (13.5-17.0) L 04/13/18 05:22 Hct 33.6 % (37.9-51.0) L 04/13/18 05:22 MCV 81 fl (80-97) 04/13/18 05:22 MCH 27.1 pg (27.0-33.4) 04/13/18 05:22 MCHC 33.3 g/dL (32.0-36.0) 04/13/18 05:22 RDW 14.0 % (11.5-14.0) 04/13/18 05:22 Plt Count 483 10^3/uL (150-450) H 04/13/18 05:22 Sodium 142.1 mmol/L (137-145) 04/13/18 05:22 Potassium 4.6 mmol/L (3.6-5.0) 04/13/18 05:22 Chloride 102 mmol/L (98-107) 04/13/18 05:22 Carbon Dioxide 28 mmol/L (22-30) 04/13/18 05:22 Anion Gap 12 (5-19) 04/13/18 05:22 BUN 8 mg/dL (7-20) 04/13/18 05:22 Creatinine 0.73 mg/dL (0.52-1.25) 04/13/18 05:22 Est GFR ( Amer) > 60 (>60) 04/13/18 05:22 Est GFR (Non-Af Amer) > 60 (>60) 04/13/18 05:22 Glucose 110 mg/dL (75-110) 04/13/18 05:22 Calcium 8.9 mg/dL (8.4-10.2) 04/13/18 05:22 Troponin I < 0.012 ng/mL 04/10/18 18:15 Time Trough Drawn 1755 04/11/18 17:55 Vancomycin Trough 14.4 ug/mL (5.0-20.0) 04/11/18 17:55 Urine Opiates Screen NEGATIVE 04/10/18 17:00 Urine Methadone Screen NEGATIVE 04/10/18 17:00 Ur Barbiturates Screen NEGATIVE 04/10/18 17:00 Ur Phencyclidine Scrn NEGATIVE 04/10/18 17:00 Ur Amphetamines Screen NEGATIVE 04/10/18 17:00 U Benzodiazepines Scrn NEGATIVE 04/10/18 17:00 Urine Cocaine Screen NEGATIVE 04/10/18 17:00 U Marijuana (THC) Screen NEGATIVE 04/10/18 17:00 Impressions: Chest X-Ray 04/10/18 16:18 IMPRESSION: Minimal airspace disease in the medial right lung base, atelectasis versus pneumonia. Nodules from probable septic emboli seen in the lungs on CT 04/07/2018 are difficult to visualize by today's plain film. Findings discussed with Jolly Bran [employer]LA[employer]IER SUPERVISOR Plan Discharge Plan: Patient will be transferred to [facility] for ARTIE and then return. Time Spent: Greater than 30 Minutes
[2018-04-14] MEDS: VANCOMYCIN HCL 1,000 MG in DEXTROSE 5%-WATER 250 ML IV SCH ×3 (02:07→14:38)
[2018-04-14] MEDS: OXYCODONE-ACETAMINOPHEN 5-325 MG TABLET PO PRN ×3 (02:09→23:33)
[2018-04-14] MEDS: IBUPROFEN 600 MG TABLET PO SCH ×3 (05:00→21:12)
[2018-04-14] MEDS: HEPARIN SOD (PORCINE) 5,000 UNIT/ML 1 ML SYRINGE SUBCUT SCH ×3 (05:00→21:12)
[2018-04-14] MEDS: METHADONE HCL 10 MG TABLET PO SCH ×3 (05:00→21:12)
[2018-04-14] MEDS: ARIPIPRAZOLE 5 MG TABLET PO SCH (10:13)
[2018-04-14] MEDS: NICOTINE 14 MG/24 HR PATCH.TD24 TD SCH (10:13)
[2018-04-14] MEDS: FAMOTIDINE 20 MG TABLET PO SCH ×2 (10:13→21:12)
[2018-04-14] MEDS: CHLORPROMAZINE HCL 50 MG TABLET PO SCH (10:13)
[2018-04-14] MEDS: LIDOCAINE 5% (700 MG) TRANSDERMAL ADH..PATCH TP SCH (10:13)
[2018-04-14] MEDS ORDERED: METHADONE HCL 10 MG TABLET PO ONE (13:30)
[2018-04-14 13:48] LABS: VANCOMYCIN,TROUGH 12.4 ug/mL (5.0-20.0)
--- NOTE | 2018-04-14 18:34 | Progress Note ---
Provider Note Provider Note: ID Consult Note Spoke via telephone with Efe Harrison who is the provider taking care of the patient and reviewed pt's chart. Pt not seen or examined. Pt is a 37 year old male with PMH including bipolar disorder and h/o substance abuse including prior IVDU who recently was hospitalized for R sided preseptal cellulitis. He was observed to have excessive sedation and odd affect after visitation by several friends/family raising suspicion for active IVDU. He was found to have a high grade MRSA bacteremia. He also was found to have b/l subpleural/pleural nodules on CT performed to evaluate chest pain and tachypnea. Pt left AMA briefly before returning on 04/10. He was being treated with vancomycin, which was resumed after he returned. ARTIE performed at [facility] was negative. Clearance of the bacteremia was documented on 04/10/18. 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 - Generally outpatient antibiotic therapy via PICC line is avoided if there is suspected active IV drug use because of risk of treatment failure and potential misuse of PICC line. - If pt is unable to safely remain in a supervised setting to receive standard of care/first-line treatment for his MRSA endocarditis, salvage therapy options at that point would include either PO linezolid 600 mg BID (provided that the Micro lab can verify susceptibility for linezolid) or PO Bactrim 2 DS BID. Linezolid has toxicities making it a poor option for nursing home use, and Bactrim is inferior to vancomycin for MRSA bacteremia treatment; neither can be recommended up front. - Duration of therapy is 6 weeks fromdate of blood culture clearance; anticipated end date is 05/22/18. Jay Jeter MD [facility], [facility] Infectious Diseases pager [phone]
--- NOTE | 2018-04-14 20:32 | PROGRESS NOTE E ---
Progress Note NAME: CODY CHAVIRA : 1980 AGE: 37Y DATE: 04/14/2018 ROOM: 533 SUBJECTIVE: The patient is currently lying in bed. The patient has returned from [facility] from having his ARTIE, which appeared to be clean. No evidence of endocarditis. The patient apparently was quite frustrated upon return and wanted his methadone, and went to sleep after that. The patient does not voice any other concerns at this time. REVIEW OF SYSTEMS: Not obtained. MEDICATIONS: Reviewed. OBJECTIVE: GENERAL: The patient is a 37-year-old male who is currently sleeping post procedure. Does not appear to be distressed. VITAL SIGNS: Temperature 98.6, pulse 96, respirations 20, blood pressure 118/43, oxygen saturation 96% on room air. SKIN: Not diaphoretic. CHEST: Symmetrical and unlabored. CVS: Normal sinus rhythm. PSYCHIATRIC: The patient is sleeping. DIAGNOSTICS/LAB VALUES: Hematology obtained on 04/13/2018: WBC 15.1, hemoglobin 11.2, hematocrit 33.6, platelet count 483,000. Chemistry obtained on 04/13/2018: Sodium 142, potassium 4.6, chloride 102, carbon dioxide 28, BUN 8, creatinine 0.73, glucose 110, calcium 8.9. ASSESSMENT AND PLAN: 1. METHICILLIN RESISTANT STAPHYLOCOCCUS AUREUS BACTEREMIA. The patient's ARTIE was negative. Will collaborate with Infectious Disease regarding treatment plan. In the interim, continue vancomycin and follow. 2. LUNG NODULES SUGGESTIVE OF SEPTIC EMBOLI. 3. BIPOLAR DISORDER TYPE 1. Will continue the patient's home medication. 4. INTRAVENOUS DRUG USER. This appears to be polysubstance. The patient has refused any program enrollment unless it is Subutex. He is agreeable to methadone in the hospital. 5. OPIATE DEPENDENCE. Continuous. I am agreeable to methadone to help the patient get through withdrawal. He is quite aware that he will not be receiving intravenous pain management while in this hospital. 6. TOBACCO DEPENDENCY. Continue as needed nicotine patch. 7. PAIN CONTROL. At this time, the patient is calm and at a good state. 8. FACIAL CELLULITIS. Resolved. DISPOSITION: The patient is a full code. Pending the patient's symptomatology and diagnostic findings, will reevaluate in the a.m. Discussed with infectious disease. Time spent on this followup including assessment, plan, physical examination, and patient education is 35 minutes. DICTATING PHYSICIAN: MANNY LEIGH NP [id number] [id number] PHY#: [id number] ID: [id number] JOB#: [id number] ACCT: [id number] cc: > MTDD
[2018-04-14] MEDS: VANCOMYCIN HCL 1,500 MG in DEXTROSE 5%-WATER 250 ML IV SCH (21:13)
[2018-04-15] MEDS ORDERED: OXYCODONE-ACETAMINOPHEN 5-325 MG TABLET PO ONE (02:30)
[2018-04-15] MEDS ORDERED: CHLORPROMAZINE HCL INJ 25 MG/1 ML AMPULE ONE (03:48)
[2018-04-15] MEDS: CHLORPROMAZINE HCL INJ 25 MG/1 ML AMPULE IM PRN (04:01)
[2018-04-15] MEDS: HEPARIN SOD (PORCINE) 5,000 UNIT/ML 1 ML SYRINGE SUBCUT SCH ×3 (06:00→21:47)
[2018-04-15] MEDS: METHADONE HCL 10 MG TABLET PO SCH ×3 (06:04→23:55)
[2018-04-15] MEDS: IBUPROFEN 600 MG TABLET PO SCH ×2 (06:05→14:25)
[2018-04-15] MEDS: VANCOMYCIN HCL 1,500 MG in DEXTROSE 5%-WATER 250 ML IV SCH ×3 (06:05→23:55)
[2018-04-15] MEDS: FAMOTIDINE 20 MG TABLET PO SCH ×3 (10:12→23:56)
[2018-04-15] MEDS: OXYCODONE-ACETAMINOPHEN 5-325 MG TABLET PO PRN ×3 (10:12→16:41)
[2018-04-15] MEDS: ARIPIPRAZOLE 5 MG TABLET PO SCH ×2 (10:13→12:08)
[2018-04-15] MEDS: CHLORPROMAZINE HCL 50 MG TABLET PO SCH ×2 (10:13→12:08)
[2018-04-15] MEDS: NICOTINE 14 MG/24 HR PATCH.TD24 TD SCH ×2 (10:14→12:08)
[2018-04-15] MEDS: LIDOCAINE 5% (700 MG) TRANSDERMAL ADH..PATCH TP SCH ×2 (10:14→12:10)
[2018-04-15] MEDS: HYDROXYZINE PAMOATE 25 MG CAPSULE PO PRN (12:52)
--- NOTE | 2018-04-15 16:56 | PSYCHOLOGICAL NOTE ---
Psych Note - Psych Note Date seen by psych provider: 04/15/18 Time seen by psych provider: 14:15 Psych Note: Reason for Consult: Contact Permissions: Unknown at this time Patient was seen by Dr. Galvan via iPad; clinician present during evaluation. Patient was noted to immediately request medications identifying that he needs more than has already. When asked about his compliance he with a PICC line been established he reported he had been asking for a PICC line and denied ever refusing. Patient was advised that if he continued to threaten staff and engage in aggressive behavior this could result in his release from the hospital or in legal charges. Patient refused to further engage with Dr. Galvan requesting "someone higher up." Clinician notes there is a pattern of drug-seeking behavior and when he does not receive what he wants becomes verbally aggressive with yelling, slamming doors, and making threats. This morning (04/15/2018 at 4:26 AM) the patient was provided Vistaril however spit the medication out onto the floor because he did not receive IV pain medication. He demanded to speak with someone in charge of the hospital. [place] RN supervisor bleach plant was contacted at this time per pt request. pt stated " I will start freaking out so you have to tie me down and give me medication". Patient's behavior has required security being called on multiple occasions because his behaviors escalate to the point of slamming things around and making verbal threats. History of Polysubstance Use and Opioid Withdrawal Medication recommendations made by the psychiatric medical provider, Dr. Iggy MD., includes: Restart Home Medications Continue Abilify 10MG daily for mood stabilization/depression Continue Thorazine 100MG daily for mood stabilization Also attending physicians are advised they will want to reduce pain medications to lowest possible given history of polysubstance use (specifically Opioid Use and Withdrawal) and the measures he would go to to get pain medications (such as swallowing batteries to get surgery and then obtain pain medication). Impression/Plan: Patient is cleared from acute psychiatric services. Patient reports that he wants a PICC line placed and denies ever refusing. Patient is recommended to work with medical on getting a PICC line in and discharge planning to assist with home health set up for the patient to enable discharge as soon as medically reasonable. Staff is advised to contact [employer] and security if behaviors persist. Patient refused detox and insisted on continuing with Sina Aranda, his outpatient provider, for continued psychiatric treatment. Patient reports being schizophrenic and bipolar however his true diagnosis is opiate dependency, amphetamine dependency, stimulant dependency, benzodiazepine dependency and specified personality disorder.
[2018-04-15 18:08] LABS: ABSOLUTE EOSINOPHILS # (AUTO) 0.5 10^3/uL (0.0-0.6); ABSOLUTE LYMPHOCYTES (AUTO) 1.7 10^3/uL (0.5-4.7); ABSOLUTE MONOCYTES (AUTO) 0.7 10^3/uL (0.1-1.4); ABSOLUTE NEUT (AUTO) 5.6 10^3/uL (1.7-8.2); BASOPHILS % (AUTO) 0.5 % (0-2); EOSINOPHILS % (AUTO) 6.3 % (0-6); HEMATOCRIT 31.8 % (37.9-51.0); HEMOGLOBIN 10.8 g/dL (13.5-17.0); LYMPHOCYTES % (AUTO) 19.9 % (13-45); MEAN CORPUSCULAR HEMOGLOBIN 27.4 pg (27.0-33.4); MEAN CORPUSCULAR HGB CONC 33.8 g/dL (32.0-36.0); MEAN CORPUSCULAR VOLUME 81 fl (80-97); MONOCYTES % (AUTO) 7.8 % (3-13); PLATELET COUNT 441 10^3/uL (150-450); RED BLOOD COUNT 3.93 10^6/uL (4.35-5.55); RED CELL DISTRIBUTION WIDTH 13.7 % (11.5-14.0); SEGMENTED NEUTROPHILS % (AUTO) 65.5 % (42-78); TOTAL CELLS COUNTED % (AUTO) 100 %; WHITE BLOOD COUNT 8.6 10^3/uL (4.0-10.5)
[2018-04-15 18:13] LABS: INTERNATIONAL RATION (INR) 0.97; PROTHROMBIN TIME 13.4 SEC (11.4-15.4)
[2018-04-15 18:40] LABS: ANION GAP 8 (5-19); BLOOD UREA NITROGEN 19 mg/dL (7-20); CALCIUM 8.7 mg/dL (8.4-10.2); CARBON DIOXIDE 32 mmol/L (22-30); CHLORIDE 101 mmol/L (98-107); GLUCOSE 124 mg/dL (75-110); POTASSIUM 4.2 mmol/L (3.6-5.0); SODIUM 140.5 mmol/L (137-145)
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
[2018-04-15 22:01] LABS: VANCOMYCIN,TROUGH 19.1 ug/mL (5.0-20.0)
[2018-04-16] MEDS: IBUPROFEN 600 MG TABLET PO SCH ×4 (00:02→22:57)
[2018-04-16] MEDS: OXYCODONE-ACETAMINOPHEN 5-325 MG TABLET PO PRN ×4 (01:28→20:11)
[2018-04-16] MEDS ORDERED: CHLORPROMAZINE HCL INJ 25 MG/1 ML AMPULE ONE ×2 (01:53→23:12)
[2018-04-16] MEDS: CHLORPROMAZINE HCL INJ 25 MG/1 ML AMPULE IM PRN ×2 (02:43→23:14)
[2018-04-16] MEDS: HEPARIN SOD (PORCINE) 5,000 UNIT/ML 1 ML SYRINGE SUBCUT SCH ×3 (05:23→22:07)
[2018-04-16] MEDS: VANCOMYCIN HCL 1,500 MG in DEXTROSE 5%-WATER 250 ML IV SCH ×3 (05:25→22:57)
[2018-04-16] MEDS: METHADONE HCL 10 MG TABLET PO SCH ×3 (05:25→22:57)
[2018-04-16] MEDS: ARIPIPRAZOLE 5 MG TABLET PO SCH (10:54)
[2018-04-16] MEDS: CHLORPROMAZINE HCL 50 MG TABLET PO SCH (10:54)
[2018-04-16] MEDS: FAMOTIDINE 20 MG TABLET PO SCH ×2 (10:55→22:07)
[2018-04-16] MEDS: LIDOCAINE 5% (700 MG) TRANSDERMAL ADH..PATCH TP SCH (10:55)
[2018-04-16] MEDS: NICOTINE 14 MG/24 HR PATCH.TD24 TD SCH (10:55)
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
[2018-04-16] MEDS: HYDROXYZINE PAMOATE 25 MG CAPSULE PO PRN (23:24)
[2018-04-17] MEDS: OXYCODONE-ACETAMINOPHEN 5-325 MG TABLET PO PRN ×3 (00:52→15:35)
[2018-04-17] MEDS: HEPARIN SOD (PORCINE) 5,000 UNIT/ML 1 ML SYRINGE SUBCUT SCH ×3 (05:11→22:04)
[2018-04-17] MEDS: VANCOMYCIN HCL 1,500 MG in DEXTROSE 5%-WATER 250 ML IV SCH ×3 (06:35→21:59)
[2018-04-17] MEDS: IBUPROFEN 600 MG TABLET PO SCH ×3 (06:35→21:58)
[2018-04-17] MEDS: METHADONE HCL 10 MG TABLET PO SCH ×3 (06:35→21:59)
[2018-04-17] MEDS: ARIPIPRAZOLE 5 MG TABLET PO SCH (09:55)
[2018-04-17] MEDS: NICOTINE 14 MG/24 HR PATCH.TD24 TD SCH (09:56)
[2018-04-17] MEDS: LIDOCAINE 5% (700 MG) TRANSDERMAL ADH..PATCH TP SCH (09:56)
[2018-04-17] MEDS: CHLORPROMAZINE HCL 50 MG TABLET PO SCH (09:56)
[2018-04-17] MEDS: FAMOTIDINE 20 MG TABLET PO SCH ×2 (09:57→21:59)
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
[2018-04-17] MEDS ORDERED: CHLORPROMAZINE HCL INJ 25 MG/1 ML AMPULE ONE (22:38)
[2018-04-18] MEDS: OXYCODONE-ACETAMINOPHEN 5-325 MG TABLET PO PRN ×2 (00:19→10:50)
[2018-04-18] MEDS: CHLORPROMAZINE HCL INJ 25 MG/1 ML AMPULE IM PRN (00:42)
[2018-04-18] MEDS: IBUPROFEN 600 MG TABLET PO SCH ×3 (05:59→21:45)
[2018-04-18] MEDS: METHADONE HCL 10 MG TABLET PO SCH ×3 (06:00→21:46)
[2018-04-18] MEDS: VANCOMYCIN HCL 1,500 MG in DEXTROSE 5%-WATER 250 ML IV SCH ×3 (06:00→21:39)
[2018-04-18] MEDS: HEPARIN SOD (PORCINE) 5,000 UNIT/ML 1 ML SYRINGE SUBCUT SCH ×3 (06:02→21:47)
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
[2018-04-18] MEDS: LIDOCAINE 5% (700 MG) TRANSDERMAL ADH..PATCH TP SCH (09:43)
[2018-04-18] MEDS: NICOTINE 14 MG/24 HR PATCH.TD24 TD SCH (09:43)
[2018-04-18] MEDS: FAMOTIDINE 20 MG TABLET PO SCH ×2 (10:46→21:45)
[2018-04-18] MEDS: CHLORPROMAZINE HCL 50 MG TABLET PO SCH (10:50)
[2018-04-18] MEDS: ARIPIPRAZOLE 5 MG TABLET PO SCH (10:50)
[2018-04-18] MEDS ORDERED: DICYCLOMINE HCL 20 MG TABLET PO PRN (18:38)
[2018-04-18] MEDS ORDERED: LOPERAMIDE HCL 2 MG CAPSULE PO PRN (18:40)
--- NOTE | 2018-04-18 19:11 | PDOC PROGRESS REPORT ---
Subjective Progress Note for:: 04/18/18 Subjective:: This is 37 yr old male with a PMH of drug-seeking behavior, history of substance use, chronic opiate dependence who was recently admitted for sepsis and left facial cellulitis. Patient is also treated for MRSA bacteremia. Patient was noted to have deemed likely from a right-sided infective endocarditis. Due to patient's hostile behavior to previous providers, will assume care today. No acute event overnight. Upon encounter this morning, patient does not appear to be in acute distress. He does complain that he is anxious and that he continues to have pleuritic pain when he takes deep breaths. Patient did ask me if I could increase his pain regimen. Reason For Visit: MRSA BACTERIMA Physical Exam Vital Signs: Temp Pulse Resp BP Pulse Ox 97.7 F 74 14 101/59 L 94 04/18/18 11:23 04/18/18 11:23 04/18/18 11:23 04/18/18 11:23 04/18/18 11:23 Intake & Output 04/17/18 04/18/18 04/19/18 06:59 06:59 06:59 Intake Total 5095 3110 1106 Balance 5095 3110 1106 General appearance: PRESENT: no acute distress, well-developed, well-nourished Head exam: PRESENT: atraumatic, normocephalic Eye exam: PRESENT: conjunctiva pink, EOMI, PERRLA. ABSENT: scleral icterus Ear exam: PRESENT: normal external ear exam Mouth exam: PRESENT: moist, tongue midline Neck exam: ABSENT: carotid bruit, JVD, lymphadenopathy, thyromegaly Respiratory exam: PRESENT: clear to auscultation hilaria. ABSENT: rales, rhonchi, wheezes Cardiovascular exam: PRESENT: RRR. ABSENT: diastolic murmur, rubs, systolic murmur Pulses: PRESENT: normal dorsalis pedis pul GI/Abdominal exam: PRESENT: normal bowel sounds, soft. ABSENT: distended, guarding, mass, organolmegaly, rebound, tenderness Rectal exam: PRESENT: deferred Neurological exam: PRESENT: alert, awake, oriented to person, oriented to place, oriented to time, oriented to situation, CN II-XII grossly intact. ABSENT: motor sensory deficit Results Laboratory Results: 04/15/18 18:00 04/15/18 18:00 04/10/18 18:15 Troponin I < 0.012 Impressions: Chest X-Ray 04/10/18 16:18 IMPRESSION: Minimal airspace disease in the medial right lung base, atelectasis versus pneumonia. Nodules from probable septic emboli seen in the lungs on CT 04/07/2018 are difficult to visualize by today's plain film. Findings discussed with Jolly Bran NP Assessment & Plan - Diagnosis (1) Bacteremia due to methicillin resistant Staphylococcus aureus Is this a current diagnosis for this admission?: Yes Plan: Continue IV vancomycin. Appreciate ID input. (2) Septic pulmonary embolism Is this a current diagnosis for this admission?: Yes Plan: IV vancomycin suspension. Patient will require 6 weeks of treatment. (3) Opiate dependence, continuous Is this a current diagnosis for this admission?: Yes Plan: Psych following. Discussed with Dr. Galvan and noted the recommendation is to start clonidine patch, gabapentin, as needed dicyclomine, gabapentin and loperamide. Dr. Galvan did recommend stopping the methadone abruptly ("cold turkey"). Will proceed with stopping methadone tomorrow morning. - Time Time Spent with patient: 25-34 minutes
[2018-04-18] MEDS: GABAPENTIN 300 MG CAPSULE PO SCH (21:45)
[2018-04-19] MEDS: OXYCODONE-ACETAMINOPHEN 5-325 MG TABLET PO PRN ×2 (02:51→09:45)
[2018-04-19] MEDS: GABAPENTIN 300 MG CAPSULE PO SCH ×3 (06:54→21:06)
[2018-04-19] MEDS: IBUPROFEN 600 MG TABLET PO SCH ×3 (06:54→21:06)
[2018-04-19] MEDS: METHADONE HCL 10 MG TABLET PO SCH ×2 (06:54→15:17)
[2018-04-19] MEDS: HEPARIN SOD (PORCINE) 5,000 UNIT/ML 1 ML SYRINGE SUBCUT SCH ×3 (06:55→21:05)
[2018-04-19] MEDS: VANCOMYCIN HCL 1,500 MG in DEXTROSE 5%-WATER 250 ML IV SCH ×3 (06:55→21:07)
[2018-04-19] MEDS: FAMOTIDINE 20 MG TABLET PO SCH ×2 (09:45→21:06)
[2018-04-19] MEDS: CHLORPROMAZINE HCL 50 MG TABLET PO SCH (09:46)
[2018-04-19] MEDS: ARIPIPRAZOLE 5 MG TABLET PO SCH (09:46)
[2018-04-19] MEDS: LIDOCAINE 5% (700 MG) TRANSDERMAL ADH..PATCH TP SCH (09:52)
[2018-04-19] MEDS ORDERED: CLONIDINE 0.1 MG/24 HR PATCH.TDWK TD SCH (10:00)
[2018-04-19] MEDS: NICOTINE 14 MG/24 HR PATCH.TD24 TD SCH (12:41)
--- NOTE | 2018-04-19 19:18 | PDOC PROGRESS REPORT ---
Subjective Progress Note for:: 04/19/18 Subjective:: This is 37 yr old male with a PMH of drug-seeking behavior, history of substance use, chronic opiate dependence who was recently admitted for sepsis and left facial cellulitis. Patient is also treated for MRSA bacteremia. Patient was noted to have deemed likely from a right-sided infective endocarditis. Due to patient's hostile behavior to previous providers, will assume care today. No acute event overnight. Upon encounter this morning, patient does not appear to be in acute distress. Discussed with patient today about psych recommendations to abruptly discontinue methadone and Percocet. Patient did become upset. Explained in length about withdrawal symptoms and that being in the hospital, we will closely for withdrawal symptoms and will treat him appropriately. Patient expressed he wants to be switched to another provider. Reason For Visit: MRSA BACTERIMA Physical Exam Vital Signs: Temp Pulse Resp BP Pulse Ox 98.0 F 74 18 111/63 94 04/19/18 07:31 04/19/18 07:31 04/19/18 07:31 04/19/18 07:31 04/19/18 07:31 Intake & Output 04/18/18 04/19/18 04/20/18 06:59 06:59 06:59 Intake Total 3110 2756 1106 Balance 3110 2756 1106 General appearance: PRESENT: no acute distress, well-developed, well-nourished Head exam: PRESENT: atraumatic, normocephalic Eye exam: PRESENT: conjunctiva pink, EOMI, PERRLA. ABSENT: scleral icterus Ear exam: PRESENT: normal external ear exam Mouth exam: PRESENT: moist, tongue midline Neck exam: ABSENT: carotid bruit, JVD, lymphadenopathy, thyromegaly Respiratory exam: PRESENT: clear to auscultation hilaria. ABSENT: rales, rhonchi, wheezes Cardiovascular exam: PRESENT: RRR. ABSENT: diastolic murmur, rubs, systolic murmur Pulses: PRESENT: normal dorsalis pedis pul GI/Abdominal exam: PRESENT: normal bowel sounds, soft. ABSENT: distended, guarding, mass, organolmegaly, rebound, tenderness Rectal exam: PRESENT: deferred Results Laboratory Results: 04/15/18 18:00 04/15/18 18:00 04/10/18 18:15 Troponin I < 0.012 Impressions: Chest X-Ray 04/10/18 16:18 IMPRESSION: Minimal airspace disease in the medial right lung base, atelectasis versus pneumonia. Nodules from probable septic emboli seen in the lungs on CT 04/07/2018 are diffi cult to visualize by today's plain film. Findings discussed with Jolly Bran NP Assessment & Plan - Diagnosis (1) Bacteremia due to methicillin resistant Staphylococcus aureus Is this a current diagnosis for this admission?: Yes Plan: Continue IV vancomycin. Appreciate ID input. (2) Septic pulmonary embolism Is this a current diagnosis for this admission?: Yes Plan: IV vancomycin suspension. Patient will require 6 weeks of treatment per ID recommendation. (3) Opiate dependence, continuous Is this a current diagnosis for this admission?: Yes Plan: Psych following. Discussed with Dr. Bonilla. Added clonidine patch, gabapentin, as needed dicyclomine, gabapentin and loperamide. Discontinue Percocet and methadone today. Patient will be also monitored for withdrawal symptoms. - Time Time Spent with patient: 25-34 minutes
[2018-04-19] MEDS ORDERED: CHLORPROMAZINE HCL INJ 25 MG/1 ML AMPULE ONE (22:25)
[2018-04-19] MEDS: CHLORPROMAZINE HCL INJ 25 MG/1 ML AMPULE IM PRN (22:38)
[2018-04-20] MEDS: HEPARIN SOD (PORCINE) 5,000 UNIT/ML 1 ML SYRINGE SUBCUT SCH ×3 (05:10→21:21)
[2018-04-20] MEDS: VANCOMYCIN HCL 1,500 MG in DEXTROSE 5%-WATER 250 ML IV SCH ×3 (06:16→21:27)
[2018-04-20] MEDS: GABAPENTIN 300 MG CAPSULE PO SCH ×4 (06:19→21:26)
[2018-04-20] MEDS: IBUPROFEN 600 MG TABLET PO SCH ×4 (06:19→21:25)
[2018-04-20] MEDS: NICOTINE 14 MG/24 HR PATCH.TD24 TD SCH (09:37)
[2018-04-20] MEDS: LIDOCAINE 5% (700 MG) TRANSDERMAL ADH..PATCH TP SCH ×2 (09:38→09:42)
[2018-04-20] MEDS: CHLORPROMAZINE HCL 50 MG TABLET PO SCH (09:38)
[2018-04-20] MEDS: ARIPIPRAZOLE 5 MG TABLET PO SCH (09:38)
[2018-04-20] MEDS: FAMOTIDINE 20 MG TABLET PO SCH ×2 (09:38→21:26)
[2018-04-20] MEDS: CHLORPROMAZINE HCL INJ 25 MG/1 ML AMPULE IM PRN (18:48)
--- NOTE | 2018-04-20 19:21 | PDOC PROGRESS REPORT ---
Subjective Progress Note for:: 04/20/18 Reason For Visit: MRSA BACTERIMA Physical Exam Vital Signs: Temp Pulse Resp BP Pulse Ox 97.8 F 81 14 135/63 H 100 04/20/18 11:43 04/20/18 11:43 04/20/18 11:43 04/20/18 11:43 04/20/18 11:43 Intake & Output 04/19/18 04/20/18 04/21/18 06:59 06:59 06:59 Intake Total 2756 2286 250 Balance 2756 2286 250 Results Laboratory Results: 04/15/18 18:00 04/15/18 18:00 04/10/18 18:15 Troponin I < 0.012 Impressions: Chest X-Ray 04/10/18 16:18 IMPRESSION: Minimal airspace disease in the medial right lung base, atelectasis versus pneumonia. Nodules from probable septic emboli seen in the lungs on CT 04/07/2018 are difficult to visualize by today's plain film. Findings discussed with Jolly Bran NP Assessment & Plan - Diagnosis (1) Bacteremia due to methicillin resistant Staphylococcus aureus Is this a current diagnosis for this admission?: Yes (2) Septic pulmonary embolism Is this a current diagnosis for this admission?: Yes (3) Opiate dependence, continuous Is this a current diagnosis for this admission?: Yes
--- NOTE | 2018-04-20 19:29 | PDOC PROGRESS REPORT ---
Subjective Progress Note for:: 04/20/18 Subjective:: This is 37 yr old male with a PMH of drug-seeking behavior, history of substance use, chronic opiate dependence who was recently admitted for sepsis and left facial cellulitis. Patient is also treated for MRSA bacteremia. Patient was noted to have deemed likely from a right-sided infective endocarditis. Due to patient's hostile behavior to previous providers, will assume care today 04/18/18. 04/19/18: After a lengthy discussion with psych, methadone and Percocet were abruptly discontinued and patient was monitored for opiate withdrawals as needed supportive treatment. Overnight, patient had an episode of agitation with night RN but he was eventually pacified. No other acute event overnight. Pain complains of mild abdominal cramping. No nausea. Upon encounter this morning, he was sleeping comfortably. Upon waking up, he says he has pain everywhere and is asking if he could be given another type of pain medication. He is refusing the gabapentin, ibuprofen and lidocaine patches. Reason For Visit: MRSA BACTERIMA Physical Exam Vital Signs: Temp Pulse Resp BP Pulse Ox 97.8 F 81 14 135/63 H 100 04/20/18 11:43 04/20/18 11:43 04/20/18 11:43 04/20/18 11:43 04/20/18 11:43 Intake & Output 04/19/18 04/20/18 04/21/18 06:59 06:59 06:59 Intake Total 2756 2286 250 Balance 2756 2286 250 General appearance: PRESENT: no acute distress, well-developed, well-nourished Head exam: PRESENT: atraumatic, normocephalic Eye exam: PRESENT: conjunctiva pink, EOMI, PERRLA. ABSENT: scleral icterus Ear exam: PRESENT: normal external ear exam Neck exam: ABSENT: carotid bruit, JVD, lymphadenopathy, thyromegaly Respiratory exam: PRESENT: clear to auscultation hilaria. ABSENT: rales, rhonchi, wheezes Cardiovascular exam: PRESENT: RRR. ABSENT: diastolic murmur, rubs, systolic murmur Pulses: PRESENT: normal dorsalis pedis pul Vascular exam: PRESENT: normal capillary refill GI/Abdominal exam: PRESENT: normal bowel sounds, soft. ABSENT: distended, guarding, mass, organolmegaly, rebound, tenderness Rectal exam: PRESENT: deferred Neurological exam: PRESENT: alert, awake, oriented to person, oriented to place, oriented to time, oriented to situation, CN II-XII grossly intact. ABSENT: motor sensory deficit Results Laboratory Results: 04/15/18 18:00 04/15/18 18:00 04/10/18 18:15 Troponin I < 0.012 Impressions: Chest X-Ray 04/10/18 16:18 IMPRESSION: Minimal airspace disease in the medial right lung base, atelectasis versus pneumonia. Nodules from probable septic emboli seen in the lungs on CT 04/07/2018 are difficult to visualize by today's plain film. Findings discussed with Jolly Bran NP Assessment & Plan - Diagnosis (1) Bacteremia due to methicillin resistant Staphylococcus aureus Is this a current diagnosis for this admission?: Yes Plan: Continue IV vancomycin for a total duration of 6 weeks of antibiotic therapy. Appreciate ID input. (2) Septic pulmonary embolism Is this a current diagnosis for this admission?: Yes Plan: Discussed with ID. On IV vancomycin. Patient will require 6 weeks of treatment per ID recommendation. Patient likely had right-sided (tricuspid valve) vegetations as he developed septic pulmonary emboli. (3) Opiate dependence, continuous Is this a current diagnosis for this admission?: Yes Plan: Psych following. Discussed with Dr. Galvan. Added clonidine patch, gabapentin, as needed dicyclomine, gabapentin and loperamide. Discontinued Percocet and methadone on 04/19/18. He complained of nominal cramping and sweating likely related to opiate withdrawal. No diarrhea, tremors or any other symptoms. - Time Time Spent with patient: 15-24 minutes
[2018-04-20] MEDS: BENZTROPINE MESYLATE 1 MG TABLET PO SCH (21:25)
[2018-04-20] MEDS: OLANZAPINE 5 MG TABLET PO SCH (21:26)
[2018-04-21] MEDS: CHLORPROMAZINE HCL INJ 25 MG/1 ML AMPULE IM PRN (02:03)
[2018-04-21 06:22] LABS: VANCOMYCIN,TROUGH 16.6 ug/mL (5.0-20.0)
[2018-04-21] MEDS: HEPARIN SOD (PORCINE) 5,000 UNIT/ML 1 ML SYRINGE SUBCUT SCH (06:34)
[2018-04-21] MEDS: VANCOMYCIN HCL 1,500 MG in DEXTROSE 5%-WATER 250 ML IV SCH (06:36)
[2018-04-21] MEDS: GABAPENTIN 300 MG CAPSULE PO SCH (06:40)
[2018-04-21] MEDS: IBUPROFEN 600 MG TABLET PO SCH (06:40)
[2018-04-21 08:08] VITALS: BP 98/53
[2018-04-21] MEDS: CHLORPROMAZINE HCL 50 MG TABLET PO SCH (10:10)
[2018-04-21] MEDS: ARIPIPRAZOLE 5 MG TABLET PO SCH (10:11)
[2018-04-21] MEDS: NICOTINE 14 MG/24 HR PATCH.TD24 TD SCH (10:11)
[2018-04-21] MEDS: BENZTROPINE MESYLATE 1 MG TABLET PO SCH (10:11)
[2018-04-21] MEDS: FAMOTIDINE 20 MG TABLET PO SCH (10:11)
[2018-04-21] MEDS: OLANZAPINE 5 MG TABLET PO SCH (10:12)
[2018-04-21] MEDS: LIDOCAINE 5% (700 MG) TRANSDERMAL ADH..PATCH TP SCH (10:15)
--- NOTE | 2018-04-21 14:25 | PDOC PROGRESS REPORT ---
Subjective Progress Note for:: 04/21/18 Reason For Visit: MRSA BACTERIMA Physical Exam Vital Signs: Temp Pulse Resp BP Pulse Ox 97.9 F 83 16 98/53 L 91 L 04/21/18 07:46 04/21/18 07:46 04/21/18 07:46 04/21/18 07:46 04/21/18 07:46 Intake & Output 04/20/18 04/21/18 04/22/18 06:59 06:59 06:59 Intake Total 2286 1530 Balance 2286 1530 Results Laboratory Results: 04/15/18 18:00 04/21/18 05:53 04/21/18 05:53 Creatinine 0.66 Est GFR ( Amer) > 60 Est GFR (Non-Af Amer) > 60 04/10/18 18:15 Troponin I < 0.012 Impressions: Chest X-Ray 04/10/18 16:18 IMPRESSION: Minimal airspace disease in the medial right lung base, atelectasis versus pneumonia. Nodules from probable septic emboli seen in the lungs on CT 04/07/2018 are difficult to visualize by today's plain film. Findings discussed with Jolly Bran NP Assessment & Plan - Diagnosis (1) Bacteremia due to methicillin resistant Staphylococcus aureus Is this a current diagnosis for this admission?: Yes (2) Septic pulmonary embolism Is this a current diagnosis for this admission?: Yes (3) Opiate dependence, continuous Is this a current diagnosis for this admission?: Yes
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
== END 2018-04-21 12:02 | disposition left against medical advice (07) | DRG 175 ==
LOC: ER 15:27 → EH 16:30 → 5 20:15
PROVIDERS: ADMIT Internal Medicine; ATTEND Internal Medicine
PROC: 3E0F73Z Introduction of Anti-inflammatory into Respiratory Tract, Via Natural or Artificial Opening (ICD-10-PCS; principal; 2018-04-11)
DX: I26.90 Septic pulmonary embolism without acute cor pulmonale (principal); I33.0 Acute and subacute infective endocarditis; R78.81 Bacteremia; F11.20 Opioid dependence, uncomplicated; L03.211 Cellulitis of face; B95.62 Methicillin resistant Staphylococcus aureus infection as the cause of diseases classified elsewhere; F31.9 Bipolar disorder, unspecified; F63.81 Intermittent explosive disorder; F17.210 Nicotine dependence, cigarettes, uncomplicated; I10 Essential (primary) hypertension; F41.9 Anxiety disorder, unspecified; Z60.2 Problems related to living alone; Z79.899 Other long term (current) drug therapy; Z88.8 Allergy status to other drugs, medicaments and biological substances; Z91.14 Patient's other noncompliance with medication regimen; Z82.49 Family history of ischemic heart disease and other diseases of the circulatory system
CPT/HCPCS: 36415; 71045; 80048; 80202; 80307; 82565; 84484; 85025; 85027; 85610; 87040; 94799; 99285; J2270; J3010; J3230; J3370; J3490; J7060

== ENCOUNTER 2018-10-02 07:33 | Emergency (ER) | payer MEDICAID ==
[2018-10-02 07:37] VITALS: BP 114/63
--- NOTE | 2018-10-02 09:30 | ER Document Report ---
ED Medical Screen (RME) - General Chief Complaint: Abscess Stated Complaint: ABSCESS Time Seen by Provider: 10/02/18 09:24 Mode of Arrival: Ambulatory Information source: Patient Notes: Patient presents the emergency department with an abscess to his left lower leg. 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 Now the area is a large dark abscess swollen surrounded by erythema. No c/o fever, history of MRSA. I have greeted and performed a rapid initial assessment of this patient. A comprehensive ED assessment and evaluation of the patient, analysis of test results and completion of the medical decision making process will be conducted by additional ED providers. Dictation of this chart was performed using voice recognition software; therefore, there may be some unintended grammatical errors. TRAVEL OUTSIDE OF THE [place] IN LAST 30 DAYS: No - Related Data Allergies/Adverse Reactions: haloperidol [From Haldol] Allergy (Severe, Verified 10/02/18 07:34) Anaphylaxis ketorolac tromethamine [From Toradol] Allergy (Severe, Verified 10/02/18 07:34) Past Medical History - Past Medical History Cardiac Medical History: Reports: Hx Hypertension Pulmonary Medical History: Denies: Hx Tuberculosis Neurological Medical History: Reports: Hx Migraine Renal/ Medical History: Denies: Hx Peritoneal Dialysis Psychiatric Medical History: Reports: Hx Anxiety, Hx Bipolar Disorder, Hx Depression Past Surgical History: Reports: Hx Orthopedic Surgery - Back x 2, Sciatica, Right Leg. Denies: Hx Pacemaker - Immunizations Hx Diphtheria, Pertussis, Tetanus Vaccination: Yes Physical Exam - Vital signs Vitals: Temp Pulse Resp BP Pulse Ox 98.6 F 113 H 16 114/63 98 10/02/18 07:36 10/02/18 07:36 10/02/18 07:36 10/02/18 07:36 10/02/18 07:36 Course - Vital Signs Vital signs: Temp Pulse Resp BP Pulse Ox 98.6 F 113 H 16 114/63 98 10/02/18 07:36 10/02/18 07:36 10/02/18 07:36 10/02/18 07:36 10/02/18 07:36
[2018-10-02 12:48] LABS: ABSOLUTE EOSINOPHILS # (AUTO) 0.1 10^3/uL (0.0-0.6); ABSOLUTE LYMPHOCYTES (AUTO) 2.6 10^3/uL (0.5-4.7); ABSOLUTE MONOCYTES (AUTO) 0.9 10^3/uL (0.1-1.4); ABSOLUTE NEUT (AUTO) 8.9 10^3/uL (1.7-8.2); BASOPHILS % (AUTO) 0.3 % (0-2); EOSINOPHILS % (AUTO) 0.7 % (0-6); HEMATOCRIT 37.9 % (37.9-51.0); HEMOGLOBIN 12.8 g/dL (13.5-17.0); LYMPHOCYTES % (AUTO) 21.1 % (13-45); MEAN CORPUSCULAR HEMOGLOBIN 27.4 pg (27.0-33.4); MEAN CORPUSCULAR HGB CONC 33.7 g/dL (32.0-36.0); MEAN CORPUSCULAR VOLUME 81 fl (80-97); MONOCYTES % (AUTO) 7.3 % (3-13); PLATELET COUNT 326 10^3/uL (150-450); RED BLOOD COUNT 4.67 10^6/uL (4.35-5.55); RED CELL DISTRIBUTION WIDTH 14.1 % (11.5-14.0); SEGMENTED NEUTROPHILS % (AUTO) 70.6 % (42-78); TOTAL CELLS COUNTED % (AUTO) 100 %; WHITE BLOOD COUNT 12.5 10^3/uL (4.0-10.5)
[2018-10-02 13:10] LABS: ALANINE AMINOTRANSFERASE 57 U/L (21-72); ALBUMIN 3.5 g/dL (3.5-5.0); ALKALINE PHOSPHATASE 99 U/L (38-126); ANION GAP 11 (5-19); ASPARTATE AMINO TRANSFERASE 48 U/L (17-59); BILIRUBIN,DIRECT 0.3 mg/dL (0.0-0.4); BILIRUBIN,TOTAL 0.4 mg/dL (0.2-1.3); BLOOD UREA NITROGEN 14 mg/dL (7-20); CALCIUM 8.8 mg/dL (8.4-10.2); CARBON DIOXIDE 30 mmol/L (22-30); CHLORIDE 94 mmol/L (98-107); GLUCOSE 129 mg/dL (75-110); POTASSIUM 4.1 mmol/L (3.6-5.0); SODIUM 135.2 mmol/L (137-145); TOTAL PROTEIN 7.1 g/dL (6.3-8.2)
[2018-10-02] MEDS ORDERED: LORAZEPAM INJ 2 MG/1 ML VIAL IV ONE (14:09)
[2018-10-02] MEDS ORDERED: HYDROMORPHONE HCL INJ/PF 2 MG/ML AMPULE IV ONE (14:09)
[2018-10-02] MEDS ORDERED: LIDOCAINE 1% INJ-PF (10 MG/ML) 30 ML SDV INJ ONE (14:10)
[2018-10-02] MEDS ORDERED: VANCOMYCIN HCL INJ 1000 MG VIAL IV ONE (14:10)
[2018-10-02] MEDS ORDERED: ONDANSETRON HCL INJ/PF 4 MG/2 ML SDV IV ONE (14:10)
[2018-10-02] MEDS ORDERED: NORMAL SALINE 1000 ML 1,000 ML IV ONE (14:14)
--- NOTE | 2018-10-02 14:16 | ER Document Report ---
ED General - General Chief Complaint: Abscess Stated Complaint: ABSCESS Time Seen by Provider: 10/02/18 09:24 Mode of Arrival: Ambulatory Information source: Patient, [facility] Records Notes: 38-year-old male presents with right lower extremity erythema, pain and an abscess. States that 2 days prior to arrival he put on a pair of pants that were taken out of a closet. Patient states that he suddenly felt a bite and when he reached down the area was tender. He states that he developed signific ant redness, nausea and fatigue. Reports a history of MRSA which she was admitted for in April 2018. TRAVEL OUTSIDE OF THE [place] IN LAST 30 DAYS: No - HPI Onset: Just prior to arrival Onset/Duration: Gradual, Persistent Quality of pain: Burning, Throbbing Severity: Moderate Pain Level: 2 Associated symptoms: Nausea. denies: Chest pain, Fever, Shortness of breath Exacerbated by: Movement Relieved by: Denies Similar symptoms previously: No Recently seen / treated by doctor: No - Related Data Allergies/Adverse Reactions: haloperidol [From Haldol] Allergy (Severe, Verified 10/02/18 07:34) Anaphylaxis ketorolac tromethamine [From Toradol] Allergy (Severe, Verified 10/02/18 07:34) Past Medical History - General Information source: Patient - Social History Smoking Status: Current Every Day Smoker Cigarette use (# per day): Yes - 15 Chew tobacco use (# tins/day): No Smoking Education Provided: Yes - Smoking cessation counseling was provided for 4 minutes at the bedside Frequency of alcohol use: None Drug Abuse: None Lives with: Spouse/Significant other Family History: Hypertension Patient has suicidal ideation: No Patient has homicidal ideation: No - Past Medical History Cardiac Medical History: Reports: Hx Hypertension Pulmonary Medical History: Denies: Hx Tuberculosis Neurological Medical History: Reports: Hx Migraine Renal/ Medical History: Denies: Hx Peritoneal Dialysis Psychiatric Medical History: Reports: Hx Anxiety, Hx Bipolar Disorder, Hx Depression, Hx Schizophrenia Past Surgical History: Reports: Hx Orthopedic Surgery - Back x 2, Sciatica, Right Leg. Denies: Hx Pacemaker - Immunizations Hx Diphtheria, Pertussis, Tetanus Vaccination: Yes Review of Systems - Review of Systems Notes: REVIEW OF SYSTEMS: CONSTITUTIONAL : Denies fever, chills, or sweats. Denies recent illness. Denies weight loss, recent hospitalizations. EENT: Denies visual changes, eye pain. Denies sore throat, oral lesions, difficulty swallowing. CARDIOVASCULAR: Denies chest pain. Denies palpitations. Denies lower extremity edema. RESPIRATORY: Denies cough. Denies shortness of breath, wheezing. GASTROINTESTINAL: Denies abdominal pain or distention. Denies vomiting, or diarrhea. Denies blood in vomitus, stools, or per rectum. Denies black, tarry stools. Denies constipation. GENITOURINARY: Denies difficulty urinating, painful urination, frequency, blood in urine, testicular pain or penile discharge. MUSCULOSKELETAL: Denies back or neck pain or stiffness. Denies joint pain or swelling. SKIN: + Right lower extremity erythema, abscess HEMATOLOGIC : Denies easy bruising or bleeding. LYMPHATIC: Denies swollen glands. NEUROLOGICAL: Denies confusion or altered mental status. Denies loss of consciousness. Denies dizziness or lightheadedness. Denies headache. Denies weakness or paralysis. Denies problems difficulty with ambulation, slurred speech. Denies sensory loss, numbness, or tingling. Denies seizures. PSYCHIATRIC: Denies anxiety or stress. Denies depression, suicidal ideation, or Physical Exam - Vital signs Vitals: Temp Pulse Resp BP Pulse Ox 98.6 F 113 H 16 114/63 98 10/02/18 07:36 10/02/18 07:36 10/02/18 07:36 10/02/18 07:36 10/02/18 07:36 - Notes Notes: PHYSICAL EXAMINATION: GENERAL: Well-appearing, well-nourished and in no acute distress. HEAD: Atraumatic, normocephalic. EYES: Pupils equal round and reactive to light, extraocular movements intact, sclera anicteric, conjunctiva are normal. ENT: Nares patent, oropharynx clear without exudates. Moist mucous membranes. NECK: Normal range of motion, supple without lymphadenopathy LUNGS: Breath sounds clear to auscultation bilaterally and equal. No wheezes rales or rhonchi. HEART: Tachycardic, regular rhythm without murmurs ABDOMEN: Soft, nontender, nondistended abdomen. No guarding, no rebound. No masses appreciated. Musculoskeletal: Normal range of motion, no pitting or edema. No cyanosis. Multiple scab-like areas of the upper extremity suspicious for possible track garay. NEUROLOGICAL: Cranial nerves grossly intact. Normal speech, normal gait. Normal sensory, motor exams PSYCH: Normal mood, normal affect. SKIN: Right lower extremity with extensive erythema, 3 x 3 area of fluctuance, induration. Course - Re-evaluation Re-evalutation: Laboratory 10/02/18 10/02/18 12:34 12:34 WBC 12.5 H RBC 4.67 Hgb 12.8 L Hct 37.9 MCV 81 MCH 27.4 MCHC 33.7 RDW 14.1 H Plt Count 326 Seg Neutrophils % 70.6 Lymphocytes % 21.1 Monocytes % 7.3 Eosinophils % 0.7 Basophils % 0.3 Absolute Neutrophils 8.9 H Absolute Lymphocytes 2.6 Absolute Monocytes 0.9 Absolute Eosinophils 0.1 Absolute Basophils 0.0 Sodium 135.2 L Potassium 4.1 Chloride 94 L Carbon Dioxide 30 Anion Gap 11 BUN 14 Creatinine 0.62 Est GFR ( Amer) > 60 Est GFR (Non-Af Amer) > 60 Glucose 129 H Calcium 8.8 Total Bilirubin 0.4 Direct Bilirubin 0.3 Neonat Total Bilirubin Not Reportable Neonat Direct Bilirubin Not Reportable Neonat Indirect Bili Not Reportable AST 48 ALT 57 Alkaline Phosphatase 99 Total Protein 7.1 Albumin 3.5 10/02/18 15:41 Bedside ultrasound was performed and showed a 4 cm fluid collection of the right calf. Patient received 1 mg of IV Dilaudid and 1 mg of Ativan prior to the procedure. Patient repeatedly requesting additional pain medication even before the start of the incision and drainage. Area was attempted to be anesthetized but the patient persistently moves, request pain medication and makes me stop the procedure. Patient persistently trying to take photos during the procedure which I told him was not allowed. Patient trying to call his "baby's mama" during the procedure. A small incision with a #11 scalpel was made prior to the patient again insisting that I stop the procedure. Copious amounts of purulent drainage was released although patient will not let me irrigate, express or deloculated. I explained to the patient that this I&D was not fully performed. I have requested that the patient return tomorrow for reevaluation. 10/02/18 15:44 Upon discharge patient is still requesting pain medication. Behavior consistent with drug-seeking. 10/02/18 15:44 10/02/18 17:44 - Vital Signs Vital signs: Temp Pulse Resp BP Pulse Ox 98.6 F 113 H 16 114/63 98 10/02/18 07:36 10/02/18 07:36 10/02/18 07:36 10/02/18 07:36 10/02/18 07:36 - Laboratory Result Diagrams: 10/02/18 12:34 10/02/18 12:34 Laboratory results interpreted by me: 10/02/18 10/02/18 12:34 12:34 WBC 12.5 H Hgb 12.8 L RDW 14.1 H Absolute Neutrophils 8.9 H Sodium 135.2 L Chloride 94 L Glucose 129 H Procedures - Incision and Drainage Right Leg Time completed: 14:30 Type: Simple Anesthetic type: 1% Lidocaine mL's of anesthetic: 10 Blade size: 11 I&D procedure: Betadine prep applied Incision Method: Incision made by scalpel Amount/type of drainage: 20 cc purulent Discharge - Discharge Clinical Impression: Cellulitis of right lower extremity, Abscess of right lower extremity Condition: Good Disposition: HOME, SELF-CARE Instructions: Abscess ([facility]), MRSA Cellulitis ([facility]) Additional Instructions: The rash is likely due to infection of your skin. You need to take the antibiotics as prescribed. Do not stop even if the rash goes away until you have completed all the antibiotics. The area of redness was traced out here in the emergency department with a marking pen. You need to return to emergency department if the redness spreads outside of this area by more than 2 cm in any direction. You should also return if you develop fevers with temperature greater than 101, persistent vomiting, worsening pain, or have any other symp toms that are concerning to you. Prescriptions: Cephalexin Monohydrate [Keflex 500 mg Capsule] 500 mg PO BID 10 Days #20 capsule Ondansetron [Zofran Odt 4 mg Tablet] 1 - 2 tab PO Q4H PRN #15 tab.rapdis PRN Reason: For Nausea/Vomiting Sulfamethoxazole/Trimethoprim [Bactrim Ds Tablet] 1 each PO BID 10 Days #20 tablet
== END 2018-10-02 16:31 | disposition home or self-care (01) ==
LOC: ER 07:33
DX: L02.415 Cutaneous abscess of right lower limb (principal); L03.115 Cellulitis of right lower limb; R11.0 Nausea; I10 Essential (primary) hypertension; R00.0 Tachycardia, unspecified; F17.210 Nicotine dependence, cigarettes, uncomplicated; Z71.6 Tobacco abuse counseling; Z88.8 Allergy status to other drugs, medicaments and biological substances
CPT/HCPCS: 99406; 99283; 96375; 96365; 36415; 85025; 80053; 10060; J3490; J1170; J2060; J2405; J7030; J3370

== ENCOUNTER 2018-12-19 20:07 | Emergency (ER) | payer MEDICAID ==
--- NOTE | 2018-12-19 20:54 | ER Document Report ---
ED Medical Screen (RME) - General Chief Complaint: Psych Problem Stated Complaint: PSYCH Time Seen by Provider: 12/19/18 20:46 Notes: Patient is a 38-year-old male with a history of hypertension, schizophrenia, bipolar who presents to the emergency department with law enforcement with IVC paperwork from [facility]. Patient states he voluntarily went to [place] for treatment of heroin use. Patient states last time he used was on Tuesday. Patient states over the past 24 hours he has had suicidal thoughts. Patient states he does not have a specific plan and has not attempted to harm himself. Patient denies homicidal ideation. Patient denies pain. Patient denies any other drug use. Patient reports he is a daily drinker to include a six pack of beer per day. TRAVEL OUTSIDE OF THE [place] IN LAST 30 DAYS: No - Related Data Allergies/Adverse Reactions: haloperidol [From Haldol] Allergy (Severe, Verified 10/02/18 07:34) Anaphylaxis ketorolac tromethamine [From Toradol] Allergy (Severe, Verified 10/02/18 07:34) Past Medical History - Past Medical History Cardiac Medical History: Reports: Hx Hypertension Pulmonary Medical History: Denies: Hx Tuberculosis Neurological Medical History: Reports: Hx Migraine Renal/ Medical History: Denies: Hx Peritoneal Dialysis Psychiatric Medical History: Reports: Hx Anxiety, Hx Bipolar Disorder, Hx Depression, Hx Schizophrenia Past Surgical History: Reports: Hx Orthopedic Surgery - Back x 2, Sciatica, Right Leg. Denies: Hx Pacemaker - Immunizations Hx Diphtheria, Pertussis, Tetanus Vaccination: Yes Physical Exam - Vital signs Vitals: Temp Pulse Resp BP Pulse Ox 98.0 F 119 H 18 142/107 H 97 12/19/18 20:13 12/19/18 20:13 12/19/18 20:13 12/19/18 20:13 12/19/18 20:13 - Abdominal Inspection: Normal Distension: No distension Bowel sounds: Normal Tenderness: Nontender Organomegaly: No organomegaly Course - Re-evaluation Re-evalutation: 12/19/18 20:54 I have greeted and performed a rapid initial assessment of this patient. A comprehensive ED assessment and evaluation of the patient, analysis of test results and completion of the medical decision making process will be conducted by additional ED providers. - Vital Signs Vital signs: Temp Pulse Resp BP Pulse Ox 98.0 F 119 H 18 142/107 H 97 12/19/18 20:13 12/19/18 20:13 12/19/18 20:13 12/19/18 20:13 12/19/18 20:13
[2018-12-19] MEDS ORDERED: CHLORPROMAZINE HCL 50 MG TABLET PO ONE (21:13)
[2018-12-19] MEDS ORDERED: ARIPIPRAZOLE 5 MG TABLET PO ONE (21:13)
--- NOTE | 2018-12-19 21:19 | ER Document Report ---
ED Psych Disorder / Suicide - General Chief Complaint: Psych Problem Stated Complaint: PSYCH Time Seen by Provider: 12/19/18 20:46 Information source: Patient, [employer] TRAVEL OUTSIDE OF THE [place] IN LAST 30 DAYS: No - HPI Notes: Patient presents stating that he has thoughts of wanting to kill himself. He states that he last used IV illicit drugs 2 days ago. He states he does not have any thoughts of wanting to hurt anybody else. He states he has no problems with hearing voices or seeing visions. He does feel suicidal however. He was placed on involuntary commitment by the [facility]. He was sent to emergency permit for further evaluation. The symptoms are constant. They are severe. They are made worse by stress and without stress. There is no radiation symptoms. He has had similar symptoms before. - Related Data Allergies/Adverse Reactions: haloperidol [From Haldol] Allergy (Severe, Verified 10/02/18 07:34) Anaphylaxis ketorolac tromethamine [From Toradol] Allergy (Severe, Verified 10/02/18 07:34) Past Medical History - General Information source: Patient - Social History Smoking Status: Current Every Day Smoker Frequency of alcohol use: None Drug Abuse: Heroin, Methamphetamine Family History: Hypertension Patient has suicidal ideation: Yes Patient has homicidal ideation: No - Past Medical History Cardiac Medical History: Reports: Hx Hypertension Pulmonary Medical History: Denies: Hx Tuberculosis Neurological Medical History: Reports: Hx Migraine Renal/ Medical History: Denies: Hx Peritoneal Dialysis Psychiatric Medical History: Reports: Hx Anxiety, Hx Bipolar Disorder, Hx Depression, Hx Schizophrenia Past Surgical History: Reports: Hx Orthopedic Surgery - Back x 2, Sciatica, Right Leg. Denies: Hx Pacemaker - Immunizations Hx Diphtheria, Pertussis, Tetanus Vaccination: Yes Review of Systems - Review of Systems Constitutional: denies: Chills, Fever Cardiovascular: denies: Chest pain, Dyspnea Respiratory: denies: Cough, Short of breath -: Yes All other systems reviewed and negative Physical Exam - Vital signs Vitals: Temp Pulse Resp BP Pulse Ox 98.0 F 119 H 18 142/107 H 97 12/19/18 20:13 12/19/18 20:13 12/19/18 20:13 12/19/18 20:13 12/19/18 20:13 Interpretation: Tachycardic - General General appearance: Appears well, Alert - HEENT Head: Normocephalic, Atraumatic Eyes: Normal Pupils: PERRL - Respiratory Respiratory status: No respiratory distress Chest status: Nontender Breath sounds: Normal Chest palpation: Normal - Cardiovascular Rhythm: Regular Heart sounds: Normal auscultation Murmur: No - Abdominal Inspection: Normal Distension: No distension Bowel sounds: Normal Tenderness: Nontender Organomegaly: No organomegaly - Back Back: Normal, Nontender - Extremities General upper extremity: Normal inspection, Nontender, Normal color, Normal ROM, Normal temperature General lower extremity: Normal inspection, Nontender, Normal color, Normal ROM, Normal temperature, Normal weight bearing. No: Jamie's sign - Neurological Neuro grossly intact: Yes Cognition: Normal Orientation: AAOx4 [place] Coma Scale Eye Opening: Spontaneous [place] Coma Scale Verbal: Oriented [place] Coma Scale Motor: Obeys Commands [place] Coma Scale Total: 15 Speech: Normal Motor strength normal: LUE, RUE, LLE, RLE Sensory: Normal - Psychological Associated symptoms: Depressed, Flat affect - Skin Skin Temperature: Warm Skin Moisture: Dry Skin Color: Normal Course - Vital Signs Vital signs: Temp Pulse Resp BP Pulse Ox 98.0 F 119 H 18 142/107 H 97 12/19/18 20:13 12/19/18 20:13 12/19/18 20:13 12/19/18 20:13 12/19/18 20:13 - Laboratory Result Diagrams: 12/19/18 21:20 12/19/18 21:20 Laboratory results interpreted by me: 12/19/18 12/19/18 12/19/18 21:20 21:20 21:35 WBC 10.7 H Hgb 12.7 L MCV 79 L MCH 25.9 L RDW 16.5 H Urine Ketones TRACE H Ur Leukocyte Esterase SMALL H Salicylates < 1.0 L Acetaminophen < 10 L - Transfer of Care Care transferred to following provider: justo Notes: 12/19/18 22:[address] Khushi Garza at 10 PM. At this time patient is resting comfortably in the bed. Laboratories are pending. Psychiatry consult is pending. Discharge - Discharge Clinical Impression: Suicidal ideation Condition: Stable Disposition: PSYCH HOSP/UNIT
[2018-12-19 21:34] LABS: ABSOLUTE BASOPHILS # (AUTO) 0.1 10^3/uL (0.0-0.2); ABSOLUTE EOSINOPHILS # (AUTO) 0.1 10^3/uL (0.0-0.6); ABSOLUTE LYMPHOCYTES (AUTO) 3.2 10^3/uL (0.5-4.7); ABSOLUTE MONOCYTES (AUTO) 0.7 10^3/uL (0.1-1.4); ABSOLUTE NEUT (AUTO) 6.6 10^3/uL (1.7-8.2); BASOPHILS % (AUTO) 0.8 % (0-2); EOSINOPHILS % (AUTO) 0.5 % (0-6); HEMATOCRIT 38.6 % (37.9-51.0); HEMOGLOBIN 12.7 g/dL (13.5-17.0); LYMPHOCYTES % (AUTO) 29.9 % (13-45); MEAN CORPUSCULAR HEMOGLOBIN 25.9 pg (27.0-33.4); MEAN CORPUSCULAR HGB CONC 32.9 g/dL (32.0-36.0); MEAN CORPUSCULAR VOLUME 79 fl (80-97); PLATELET COUNT 346 10^3/uL (150-450); RED BLOOD COUNT 4.91 10^6/uL (4.35-5.55); RED CELL DISTRIBUTION WIDTH 16.5 % (11.5-14.0); SEGMENTED NEUTROPHILS % (AUTO) 61.8 % (42-78); TOTAL CELLS COUNTED % (AUTO) 100 %; WHITE BLOOD COUNT 10.7 10^3/uL (4.0-10.5)
[2018-12-19 21:54] LABS: ACETAMINOPHEN < 10 ug/mL (10-30); ALBUMIN 4.2 g/dL (3.5-5.0); ALCOHOL < 10 mg/dL (NONE DETECTED); ALKALINE PHOSPHATASE 101 U/L (38-126); ANION GAP 12 (5-19); ASPARTATE AMINO TRANSFERASE 25 U/L (17-59); BILIRUBIN,DIRECT 0.2 mg/dL (0.0-0.4); BILIRUBIN,TOTAL 0.2 mg/dL (0.2-1.3); BLOOD UREA NITROGEN 15 mg/dL (7-20); CALCIUM 9.3 mg/dL (8.4-10.2); CARBON DIOXIDE 25 mmol/L (22-30); CHLORIDE 104 mmol/L (98-107); GLUCOSE 110 mg/dL (75-110); POTASSIUM 4.1 mmol/L (3.6-5.0); SALICYLATE < 1.0 mg/dL (2.0-20.0); TOTAL PROTEIN 7.9 g/dL (6.3-8.2)
[2018-12-19 21:59] LABS: APPEARANCE,URINE SLIGHTLY-CLOUDY; BILIRUBIN,URINE NEGATIVE (NEGATIVE); COLOR,URINE YELLOW; GLUCOSE, URINE NEGATIVE (NEGATIVE); KETONES,URINE TRACE mg/dL (NEGATIVE); LEUKOCYTE ESTERASE,URINE SMALL (NEGATIVE); NITRITE,URINE NEGATIVE (NEGATIVE); PROTEIN,URINE NEGATIVE (NEGATIVE); URINE SPECIFIC GRAVITY 1.019; UROBILINOGEN,URINE NEGATIVE mg/dL (<2.0)
[2018-12-19 22:11] LABS: URINE BARBITURATES SCREEN NEGATIVE; URINE BENZODIAZEPINES SCREEN NEGATIVE; URINE COCAINE SCREEN NEGATIVE; URINE MARIJUANA (THC) SCREEN NEGATIVE; URINE METHADONE SCREEN NEGATIVE; URINE PHENCYCLIDINE SCREEN NEGATIVE
[2018-12-19 22:12] LABS: URINE AMPHETAMINES SCREEN UNCONFIRMED POSITIVE
[2018-12-20] MEDS ORDERED: DOXYCYCLINE HYCLATE 100 MG TABLET PO ONE (08:02)
[2018-12-20] MEDS ORDERED: CEFTRIAXONE INJ 250 MG VIAL IM ONE (08:02)
--- NOTE | 2018-12-20 10:18 | ER Document Report ---
Doctor's Note Notes: 12/20/18 10:17 Rounds: Chart reviewed and patient interviewed. Patient is being evaluated for heroin addiction and withdrawal. He was referred here from detox center. History of schizophrenia and bipolar disorder and suicidal ideation. Admits to also using methamphetamine. Lab studies were all essentially normal except for the drug screen being positive for amphetamines. Vital signs are all normal. Patient appears to be medically stable for transfer or discharge. Cale Moser MD
--- NOTE | 2018-12-20 11:18 | PSYCHOLOGICAL NOTE ---
Psych Note - Psych Note Date seen by psych provider: 12/20/18 Time seen by psych provider: 08:39 - Chart review at 0839. Evaluation from [id number]. Psych Note: Presenting Problem: IVC via [facility] grey roll worker, had been there for 3 days of heroin detox, getting worse not better, with SI. Patient has been consistent with saying yes to SI thoughts and denying plan or action. He said he is still interested in detox. he denied being linked to outp [facility] services and admitted he has not followed up. [facility] has seen patient since 2013 through 2018 for mental health, polysubstance and manipulative behaviors to obtain medications he abused. Diagnosis: Polysubstance Abuse Heroin Methamphetamine ([facility]) Treatment noncompliance R/O Bipolar Impression/Plan: Patient is cleared from acute psychiatric services. Recommendation to rescind IVC. He admitted to SI thoughts but no plan or action (no intent), denied HI and no observed psychosis. He was getting Heroin Detox and wished to continue with detox (future/forward thinking). He was alert and oriented x5, was able to engage and answer questions when addressed, conversational speech was within normal limits for rate/tone/prosody. Provided the outpatient SA resource sheet and encouraged patient to contact [facility] for voluntary detox, even offered to assist with the connection to have [facility] meet patient in lobby at discharge. Consulted with Dr. Galvan regarding the management and care of patient. ED Physician in agreement with recommendations.
[2018-12-20 11:42] VITALS: BP 108/60
--- NOTE | 2018-12-20 17:39 | EKG REPORT ---
SEVERITY:- NORMAL ECG - SINUS RHYTHM : Confirmed by: Minda Connelly MD 20-Dec-2018 17:38:33
== END 2018-12-20 11:42 | disposition home or self-care (01) ==
LOC: ER 20:07
DX: R45.851 Suicidal ideations (principal); F11.23 Opioid dependence with withdrawal; I10 Essential (primary) hypertension; F17.200 Nicotine dependence, unspecified, uncomplicated
CPT/HCPCS: 93005; 99285; 96374; 36415; 80307 ×4; 85025; 80053; 81001; 93010; J3490 ×3; J0696